=== PATIENT | male | born 1960 | race Caucasian/White ===

== ENCOUNTER 2017-07-25 11:31 | Inpatient (IN) | payer BC ==
[2017-07-25] MEDS ORDERED: IPRATROPIUM-ALBUTEROL 3 ML NEB INHALATION STA ×2 (11:40→14:43)
[2017-07-25] MEDS ORDERED: SODIUM CHLORIDE 0.9% 1,000 ML IV STA (11:40)
[2017-07-25] MEDS ORDERED: MAGNESIUM SULFATE-D5W PMX 1 GM in DEXTROSE/WATER 1 100ML.BAG IVPB STA (11:40)
--- NOTE | 2017-07-25 11:43 | ED ---
SOB HPI - General Chief Complaint: Shortness of Breath Stated Complaint: Difficulty Breathing Time Seen by Provider: 07/25/17 11:31 Source: patient, EMS, RN notes reviewed Mode of arrival: EMS Limitations: no limitations - History of Present Illness Initial Comments: This is a 57-year-old male with a history of COPD who is still a smoker who states he had the onset last evening and shortness of breath which got progressively worse throughout the night. EMS was summoned this morning he was noted have an 84% saturation on pulse ox. The patient was given a DuoNeb and 125 mg of Solu-Medrol he initially somewhat better but still demonstrated respiratory distress. He denies any history of congestive heart failure he's had no chest pain with this he has a cough which is from most part nonproductive. MD Complaint: shortness of breath, cough - Related Data Home Medications Medication Instructions Recorded Confirmed Albuterol Inhaler [Ventolin Hfa 1 puff INHALATION RT-Q4H PRN 07/25/17 07/25/17 Inhaler] Tiotropium 18 Mcg/Puff [Spiriva] 1 cap INHALATION RT-DAILY 07/25/17 07/25/17 Allergies Allergy/AdvReac Type Severity Reaction Status Date / Time No Known Allergies Allergy Verified 07/25/17 11:44 Review of Systems ROS Statement: Those systems with pertinent positive or pertinent negative responses have been documented in the HPI. ROS Other: All systems not noted in ROS Statement are negative. Past Medical History Past Medical History: COPD History of Any Multi-Drug Resistant Organisms: None Reported Past Surgical History: No Surgical Hx Reported Past Anesthesia/Blood Transfusion Reactions: No Reported Reaction Past Psychological History: No Psychological Hx Reported Smoking Status: Current every day smoker Past Alcohol Use History: Daily Past Drug Use History: Marijuana - Past Family History Mother Family Medical History: Cancer Additional Family Medical History / Comment(s): brain cancer General Exam - General Exam Comments Initial Comments: This is a well-developed well-nourished awake alert oriented 3 male Limitations: no limitations General appearance: alert, anxious, in distress Head exam: Present: atraumatic, normocephalic, normal inspection Eye exam: Present: normal appearance, PERRL, EOMI. Absent: scleral icterus, conjunctival injection, periorbital swelling ENT exam: Present: normal exam, mucous membranes moist Neck exam: Present: normal inspection. Absent: tenderness, meningismus, lymphadenopathy Respiratory exam: Present: wheezes, accessory muscle use, decreased breath sounds. Absent: respiratory distress, rales, rhonchi, stridor Cardiovascular Exam: Present: normal rhythm, tachycardia, normal heart sounds. Absent: systolic murmur, diastolic murmur, rubs, gallop, clicks GI/Abdominal exam: Present: soft, normal bowel sounds. Absent: distended, tenderness, guarding, rebound, rigid Extremities exam: Present: normal inspection, full ROM, normal capillary refill , pedal edema (Trace edema with stasis dermatitis noted bilaterally.). Absent: tenderness, joint swelling, calf tenderness Back exam: Present: normal inspection Neurological exam: Present: alert, oriented X3, CN II-XII intact Psychiatric exam: Present: normal affect, normal mood Skin exam: Present: warm, dry, intact. Absent: rash Course Vital Signs 07/25/17 07/25/17 07/25/17 11:35 11:52 12:00 Temperature 98.4 F Pulse Rate 114 H 112 H 114 H Respiratory 26 H Rate Blood Pressure 166/80 O2 Sat by Pulse 91 L Oximetry 07/25/17 07/25/17 07/25/17 12:54 14:45 15:28 Temperature Pulse Rate 110 H 109 H 103 H Respiratory 20 18 Rate Blood Pressure 147/79 154/76 O2 Sat by Pulse 93 L 94 L Oximetry 07/25/17 15:45 Temperature Pulse Rate 123 H Respiratory Rate Blood Pressure O2 Sat by Pulse Oximetry - Reevaluation(s) Reevaluation #1: 07/25/17 12:41 Patient is a smoker we did discuss the benefits of not smoking and the risks thereof. He told conversation lasted 3.1 minutes Reevaluation #2: 07/25/17 16:49 Patient did desaturate down into the 70s with minimal ambulation. Medical Decision Making - Medical Decision Making Patient will be admitted for evaluation for COPD exacerbation. This case with Dr. Yeh. - Lab Data Result diagrams: 07/25/17 11:46 07/25/17 11:46 Lab Results 07/25/17 07/25/17 07/25/17 Range/Units 11:46 11:46 11:46 WBC 10.1 (3.8-10.6) k/uL RBC 4.83 (4.30-5.90) m/uL Hgb 16.0 (13.0-17.5) gm/dL Hct 46.4 (39.0-53.0) % MCV 95.9 (80.0-100.0) fL MCH 33.1 (25.0-35.0) pg MCHC 34.5 (31.0-37.0) g/dL RDW 13.2 (11.5-15.5) % Plt Count 217 (150-450) k/uL Neutrophils % 83 % Lymphocytes % 8 % Monocytes % 5 % Eosinophils % 2 % Basophils % 0 % Neutrophils # 8.4 H (1.3-7.7) k/uL Lymphocytes # 0.9 L (1.0-4.8) k/uL Monocytes # 0.5 (0-1.0) k/uL Eosinophils # 0.2 (0-0.7) k/uL Basophils # 0.0 (0-0.2) k/uL PT (9.0-12.0) sec INR (<1.2) APTT (22.0-30.0) sec Sodium 137 (137-145) mmol/L Potassium 4.0 (3.5-5.1) mmol/L Chloride 101 (98-107) mmol/L Carbon Dioxide 25 (22-30) mmol/L Anion Gap 11 mmol/L BUN 13 (9-20) mg/dL Creatinine 0.80 (0.66-1.25) mg/dL Est GFR (MDRD) Af Amer >60 (>60 ml/min/1.73 sqM) Est GFR (MDRD) Non-Af >60 (>60 ml/min/1.73 sqM) Glucose 118 H (74-99) mg/dL Calcium 9.1 (8.4-10.2) mg/dL Magnesium 1.8 (1.6-2.3) mg/dL Total Bilirubin 0.9 (0.2-1.3) mg/dL AST 33 (17-59) U/L ALT 43 (21-72) U/L Alkaline Phosphatase 100 (38-126) U/L Total Creatine Kinase 277 H (55-170) U/L CK-MB (CK-2) 1.8 (0.0-2.4) ng/mL CK-MB (CK-2) Rel Index 0.6 Troponin I <0.012 (0.000-0.034) ng/mL NT-Pro-B Natriuret Pep pg/mL Total Protein 7.6 (6.3-8.2) g/dL Albumin 4.5 (3.5-5.0) g/dL 07/25/17 07/25/17 Range/Units 11:46 11:46 WBC (3.8-10.6) k/uL RBC (4.30-5.90) m/uL Hgb (13.0-17.5) gm/dL Hct (39.0-53.0) % MCV (80.0-100.0) fL MCH (25.0-35.0) pg MCHC (31.0-37.0) g/dL RDW (11.5-15.5) % Plt Count (150-450) k/uL Neutrophils % % Lymphocytes % % Monocytes % % Eosinophils % % Basophils % % Neutrophils # (1.3-7.7) k/uL Lymphocytes # (1.0-4.8) k/uL Monocytes # (0-1.0) k/uL Eosinophils # (0-0.7) k/uL Basophils # (0-0.2) k/uL PT 10.2 (9.0-12.0) sec INR 1.0 (<1.2) APTT 23.2 (22.0-30.0) sec Sodium (137-145) mmol/L Potassium (3.5-5.1) mmol/L Chloride (98-107) mmol/L Carbon Dioxide (22-30) mmol/L Anion Gap mmol/L BUN (9-20) mg/dL Creatinine (0.66-1.25) mg/dL Est GFR (MDRD) Af Amer (>60 ml/min/1.73 sqM) Est GFR (MDRD) Non-Af (>60 ml/min/1.73 sqM) Glucose (74-99) mg/dL Calcium (8.4-10.2) mg/dL Magnesium (1.6-2.3) mg/dL Total Bilirubin (0.2-1.3) mg/dL AST (17-59) U/L ALT (21-72) U/L Alkaline Phosphatase (38-126) U/L Total Creatine Kinase (55-170) U/L CK-MB (CK-2) (0.0-2.4) ng/mL CK-MB (CK-2) Rel Index Troponin I (0.000-0.034) ng/mL NT-Pro-B Natriuret Pep 97 pg/mL Total Protein (6.3-8.2) g/dL Albumin (3.5-5.0) g/dL - EKG Data -: EKG Interpreted by Me EKG shows normal: sinus rhythm (Sinus tachycardia rate 1:15. Interval 150 to QRS 74 QT since QTC of 334/[address] configuration PACs noted) - Radiology Data Radiology results: report reviewed (I did review the imaging no definite acute findings.), image reviewed Critical Care Time Critical Care Time: Yes Critical Care Time: 37 minutes of critical care time which includes initial presentation with history physical labs x-rays multiple reevaluation patient. Discussion with the admitting physician service with the patient's inhalers documentation of the above. Disposition Clinical Impression: Acute exacerbation of chronic obstructive airways disease, Adult respiratory distress syndrome Disposition: ADMITTED IP TO THIS HOSP Condition: Stable Referrals: Angus Pham MD [Primary Care Provider] - 1-2 days
[2017-07-25 12:06] LABS: ALT 43 U/L (21-72); AST 33 U/L (17-59); Alkaline Phosphatase 100 U/L (38-126); Anion Gap 11 mmol/L; Blood Urea Nitrogen 13 mg/dL (9-20); Calcium 9.1 mg/dL (8.4-10.2); Carbon Dioxide 25 mmol/L (22-30); Chloride 101 mmol/L (98-107); Glucose 118 mg/dL (74-99); Magnesium 1.8 mg/dL (1.6-2.3); Non-African American GFR(MDRD) >60 (>60 ml/min/1.73 sqM); Sodium 137 mmol/L (137-145); Total Bilirubin 0.9 mg/dL (0.2-1.3); Total Protein 7.6 g/dL (6.3-8.2)
[2017-07-25 12:09] LABS: Basophils % (A) 0 %; CH 32.9; CHCM 34.4; Eosinophils # (A) 0.2 k/uL (0-0.7); Eosinophils % (A) 2 %; HCT 46.4 % (39.0-53.0); HDW 2.73; Luc # (Auto) 0.14; Luc % (Auto) 1; Lymphocytes # (A) 0.9 k/uL (1.0-4.8); Lymphocytes % (A) 8 %; MCH 33.1 pg (25.0-35.0); MCHC 34.5 g/dL (31.0-37.0); MCV 95.9 fL (80.0-100.0); Monocytes # (A) 0.5 k/uL (0-1.0); Monocytes % (A) 5 %; Neutrophils # (A) 8.4 k/uL (1.3-7.7); Neutrophils % (A) 83 %; RBC 4.83 m/uL (4.30-5.90); RDW 13.2 % (11.5-15.5); WBC 10.1 k/uL (3.8-10.6); WBC (Perox) 9.86
[2017-07-25 12:15] LABS: Partial Thromboplastin Time 23.2 sec (22.0-30.0); Prothrombin Time 10.2 sec (9.0-12.0)
[2017-07-25 12:31] LABS: Creatine Kinase 277 U/L (55-170)
--- NOTE | 2017-07-25 12:35 | XR ---
EXAMINATION TYPE: XR chest 2V DATE OF EXAM: 07/25/2017 COMPARISON: 12/13/1715 HISTORY: Shortness of breath TECHNIQUE: Frontal and lateral views of the chest are obtained. FINDINGS: Scattered senescent parenchymal changes noted. Hyperinflation compatible with COPD. No evidence for infiltrate. No evidence for atelectasis. Scattered pulmonary nodules are stable. Heart size is stable. Mediastinal structures are stable and grossly unremarkable. No evidence for hilar prominence. Degenerative changes dorsal spine. IMPRESSION: 1. No evidence for acute pulmonary disease.
[2017-07-25 12:43] LABS: Creatine Kinase MB 1.8 ng/mL (0.0-2.4); Troponin I <0.012 ng/mL (0.000-0.034)
[2017-07-25] MEDS: IPRATROPIUM-ALBUTEROL 3 ML NEB INHALATION SCH (19:08)
[2017-07-25] MEDS ORDERED: ACETAMINOPHEN TAB 325 MG TAB PO PRN (20:12)
[2017-07-25] MEDS ORDERED: hydrALAZINE HCL 20 MG/ML 1 ML VIAL IVP PRN (20:37)
[2017-07-25] MEDS ORDERED: ALPRAZolam 0.25 MG TAB PO PRN (20:37)
[2017-07-25] MEDS ORDERED: TEMAZEPAM 15 MG CAP PO PRN (20:37)
[2017-07-25] MEDS ORDERED: HYDROcodone/APAP 5-325MG 1 EACH TAB PO PRN (20:37)
[2017-07-25] MEDS: HEPARIN SODIUM,PORCINE 5,000 UNIT/ML 1 ML VIAL SQ SCH (20:50)
[2017-07-25] MEDS: SODIUM CHLORIDE 0.9% 1,000 ML IV SCH (20:51)
[2017-07-25] MEDS ORDERED: LEVOFLOXACIN 500MG-D5W PMX 500 MG in DEXTROSE/WATER 1 100ML.BAG IVPB SCH (21:00)
[2017-07-25] MEDS: methylPREDNISolone SOD SUCCI 125 MG/2 ML VIAL IV SCH ×2 (21:49→23:57)
[2017-07-25 22:58] VITALS: BMI 47.0
[2017-07-26] MEDS: IPRATROPIUM-ALBUTEROL 3 ML NEB INHALATION SCH ×7 (00:27→23:41)
--- NOTE | 2017-07-26 05:53 | HP ---
HISTORY AND PHYSICAL DATE OF SERVICE: 07/25/2017. CHIEF COMPLAINT: Shortness of breath. HISTORY: This 57-year-old gentleman with a past medical history of multiple medical problems including chronic obstructive pulmonary disease, history of nicotine dependence being for followed by Dr. Ministerio Pham in the outpatient setting, was complaining of shortness of breath for the last couple of days. The patient had baseline shortness of breath. The patient also had cough and sputum also. The pulse was found to be 84% and the patient was given DuoNeb and steroids the patient admitted for further evaluation and treatment. At the time of admission, the patient was found to be extremely short of breath. Chest x-ray showed no evidence of pneumonia. The white count was noted. Otherwise there is no history of fever, rigors. No history of headache, loss of consciousness, seizures. PAST MEDICAL HISTORY: History of COPD, history of nicotine dependence. CURRENT MEDICATIONS: Prior to admission include: 1. Spiriva 1 puff daily. 2. Albuterol inhaler 1 puff b.i.d. ALLERGIES: Allergies are none. FAMILY HISTORY: History of breast cancer. Brain cancer. SOCIAL HISTORY: History of smoking, THC and history alcohol. REVIEW OF SYSTEMS: ENT: No diminished hearing or vision. CARDIOVASCULAR: No angina. RESPIRATORY: As mentioned earlier. GI: No nausea. : No dysuria. NERVOUS SYSTEM: No numbness or weakness. ALLERGY/IMMUNOLOGY: No asthma or hayfever. MUSCULOSKELETAL: As mentioned earlier. HEMATOLOGY: No history of anemia. ENDOCRINE: No history of diabetes or hypothyroidism. CONSTITUTIONAL: As mentioned earlier. DERMATOLOGY: Negative. RHEUMATOLOGY: Negative. PSYCHIATRY: As mentioned earlier. PHYSICAL EXAMINATION: Alert, oriented x3. Pulse is 114, blood pressure is 160/80, respirations 20, temperature 98.4, pulse ox 90% on 3 L. HEENT: Conjunctivae normal. Oral mucosa moist. NECK: No jugular venous distention. No carotid bruit. No lymph nodes enlargement. CARDIOVASCULAR: S1, S2. No S3, no S4. RESPIRATORY: Breath sounds diminished pressure in the bases. Bilateral scattered rhonchi. Breathing efforts are markedly increased. A few crackles also heard. Expiratory prolonged and wheezing also had. ABDOMEN: Soft, obese, nontender. No mass palpable. LEGS: Minimal edema. Pulses felt normally. NERVOUS SYSTEM: Higher functions as mentioned earlier. Moves all 4 limbs. No focal motor deficits. LYMPHATICS: No lymphadenopathy in the neck, axillae or groin. SKIN: No rash, ulcer or bleeding. LABS: At this time show CBC within normal limits. INR is 1, glucose 180. ASSESSMENT: 1. Chronic obstructive pulmonary disease acute exacerbation with acute purulent tracheobronchitis. 2. History of nicotine dependence. 3. Bilateral leg edema. 4. Obesity, body mass index of 44.3. RECOMMENDATIONS AND DISCUSSION: This 57-year-old gentleman who presented with multiple complex medical issues, will monitor the patient closely. Continue the current management and symptomatic treatment. Otherwise I would recommend intensive bronchodilator treatment, IV steroids. Empiric antibiotics. Pulmonary consultation. DVT prophylaxis. H2 blockers. Prognosis guarded because of multiple complex medical issues. Further recommendations to follow. Patient might be a candidate for nebulizer treatment at home. Will also check for oxygen requirements also. Prognosis guarded. Discussed with patient who understands. Further recommendations to follow. MMODL / IJN: [id number] /
[2017-07-26 06:24] LABS: Appearance,Urine Clear (Clear); Bilirubin,Urine Negative (Negative); Glucose,Urine (UA) Negative (Negative); Ketones,Urine 1+ (Negative); Leukocyte Esterase,Urine Negative (Negative); Nitrite,Urine Negative (Negative); Protein,Urine Trace (Negative); Specific Gravity,Urine 1.014 (1.001-1.035); UA Billing (MACRO vs. MICRO) CHEM; Urobilinogen,Urine <2.0 mg/dL (<2.0)
[2017-07-26 06:27] LABS: Basophils % (A) 0 %; CH 32.4; CHCM 33.2; Eosinophils % (A) 0 %; HCT 45.1 % (39.0-53.0); HDW 2.67; Luc # (Auto) 0.03; Luc % (Auto) 0; Lymphocytes # (A) 0.6 k/uL (1.0-4.8); Lymphocytes % (A) 7 %; MCH 32.7 pg (25.0-35.0); MCHC 33.3 g/dL (31.0-37.0); MCV 98.2 fL (80.0-100.0); Monocytes # (A) 0.2 k/uL (0-1.0); Monocytes % (A) 2 %; Neutrophils # (A) 7.4 k/uL (1.3-7.7); Neutrophils % (A) 90 %; RBC 4.59 m/uL (4.30-5.90); RDW 13.3 % (11.5-15.5); WBC 8.3 k/uL (3.8-10.6); WBC (Perox) 8.52
[2017-07-26 06:32] LABS: Anion Gap 9 mmol/L; Blood Urea Nitrogen 12 mg/dL (9-20); Calcium 9.3 mg/dL (8.4-10.2); Carbon Dioxide 28 mmol/L (22-30); Chloride 101 mmol/L (98-107); Glucose 154 mg/dL (74-99); Non-African American GFR(MDRD) >60 (>60 ml/min/1.73 sqM); Potassium 5.3 mmol/L (3.5-5.1); Sodium 138 mmol/L (137-145)
[2017-07-26] MEDS: methylPREDNISolone SOD SUCCI 125 MG/2 ML VIAL IV SCH ×4 (06:48→23:36)
[2017-07-26] MEDS: PANTOPRAZOLE 40 MG TABLET PO SCH (06:49)
[2017-07-26] MEDS: BUDESONIDE 1 MG/2 ML NEBU INHALATION SCH ×2 (08:09→19:29)
[2017-07-26] MEDS: FORMOTEROL FUMARATE 20 MCG/2 ML NEBU INHALATION SCH ×2 (08:09→19:29)
[2017-07-26] MEDS: HEPARIN SODIUM,PORCINE 5,000 UNIT/ML 1 ML VIAL SQ SCH ×2 (08:32→21:53)
--- NOTE | 2017-07-26 10:28 | P.CNPUL ---
History of Present Illness Consult date: 07/26/17 Requesting physician: Bianka Yeh Reason for consult: dyspnea Chief complaint: Shortness of breath, cough, congestion History of present illness: This is a very pleasant 57-year-old gentleman who follows with Dr. Angus estrella tomorrow as his primary care physician. He has a history of chronic obstructive pulmonary disease and disease secondary to chronic and ongoing tobacco dependence. He has smoked for approximately 40 years at 1 pack per day. He utilizes marijuana. He is maintained on Ventolin and Spiriva in the outpatient setting. He has not been seen by a first aid instructor in the past. He also has a history of daily alcohol use and obesity. 2 days ago the patient was cleaning out his basement which he says was quite damp and charli. He had developed increasing shortness of breath cough and congestion. Yesterday things were quite worse after just ambulating up to the bathroom and had difficulty catching his breath. He was brought in via EMS to our emergency room. He did have saturations in the 70s with minimal exertion. He is requiring oxygen at 3 L/m per nasal cannula to maintain O2 saturations in the low 90s. His chest x-ray did not reveal any evidence of acute pulmonary process. No leukocytosis. He's been afebrile. Hemodynamically stable. Review of Systems Eyes: denies blurred vision, denies bulging eye, denies decreased vision Ears: deny: decreased hearing Ears, nose, mouth and throat: Denies headache, Denies sore throat Cardiovascular: Denies chest pain, Denies shortness of breath Respiratory: Reports congestion, Reports cough, Reports dyspnea, Reports wheezing Gastrointestinal: Denies abdominal pain, Denies diarrhea, Denies nausea, Denies vomiting Genitourinary: Reports as per HPI Musculoskeletal: Denies myalgias Musculoskeletal: absent: knee pain, knee stiffness, knee swelling Integumentary: Denies pruritus, Denies rash Neurological: Denies numbness, Denies weakness Psychiatric: Denies anxiety, Denies depression Endocrine: Denies fatigue, Denies weight change Hematologic/Lymphatic: Reports as per HPI Allergic/Immunologic: Reports as per HPI, Denies allergic rhinitis, Denies anaphylaxis, Denies angioedema, Denies gluten intolerance, Denies persistent infections, Denies seasonal allergies, Denies urticaria, Denies wheezing Past Medical History Past Medical History: COPD History of Any Multi-Drug Resistant Organisms: None Reported Past Surgical History: No Surgical Hx Reported Past Anesthesia/Blood Transfusion Reactions: No Reported Reaction Past Psychological History: No Psychological Hx Reported Smoking Status: Former smoker Past Alcohol Use History: Daily Past Drug Use History: Marijuana Additional Drug Use History / Comment(s): recreational use, on weekends - Past Family History Mother Family Medical History: Cancer Additional Family Medical History / Comment(s): brain cancer Medications and Allergies Home Medications Medication Instructions Recorded Confirmed Type Albuterol Inhaler [Ventolin Hfa 1 puff INHALATION RT-Q4H PRN 07/25/17 07/25/17 History Inhaler] Tiotropium 18 Mcg/Puff [Spiriva] 1 cap INHALATION RT-DAILY 07/25/17 07/25/17 History Allergies Allergy/AdvReac Type Severity Reaction Status Date / Time No Known Allergies Allergy Verified 07/25/17 11:44 Physical Exam Vitals: Vital Signs Temp Pulse Pulse Resp BP BP Pulse Ox 07/26/17 08:37 100 07/26/17 08:25 96 07/26/17 08:09 96 07/26/17 08:00 97.3 F L 89 18 151/91 93 L 07/26/17 04:02 97 07/26/17 04:00 97.6 F 90 18 149/91 93 L 07/26/17 03:49 94 07/26/17 00:39 112 H 07/26/17 00:28 97 07/26/17 00:00 97.3 F L 95 18 146/83 91 L 07/25/17 22:42 97 F L 95 18 163/100 95 07/25/17 22:10 111 H 18 07/25/17 19:20 104 H 07/25/17 19:10 112 H 22 159/88 94 L 07/25/17 19:08 100 07/25/17 18:07 99 F 98 16 159/88 96 07/25/17 15:45 123 H 07/25/17 15:28 103 H 07/25/17 14:45 109 H 18 154/76 94 L 07/25/17 12:54 110 H 20 147/79 93 L 07/25/17 12:00 114 H 07/25/17 11:52 112 H 07/25/17 11:35 98.4 F 114 H 26 H 166/80 91 L Intake and Output 07/25/17 07/26/17 07/26/17 22:59 06:59 14:59 Intake Total 900 Balance 900 Intake: IV 800 Sodium Chloride 0.9% 1, 800 000 ml @ 100 mls/hr IV . Q10H [facility] Rx#:[id number] Intake, IV Titration 100 Amount Levofloxacin 500Mg-D5w 100 Pmx 500 mg In Dextrose/ Water 1 100ml.bag @ 100 mls/hr IVPB Q24H [facility] Rx#: [id number] Other: Voiding Method Toilet Toilet # Voids 1 Weight 140.16 kg 139.3 kg GENERAL EXAM: Obese. Alert, comfortable in no apparent distress. HEAD: Normocephalic. EYES: Normal reaction of pupils, equal size. NOSE: Clear with pink turbinates. THROAT: No erythema or exudates. NECK: No masses, no JVD. CHEST: No chest wall deformity. LUNGS: Equal air entry with bilateral wheezing. Diminished. CVS: S1 and S2 normal with no audible murmurs, regular rhythm. ABDOMEN: No hepatosplenomegaly, normal bowel sounds, no guarding or rigidity. SPINE: No scoliosis or deformity SKIN: No rashes CENTRAL NERVOUS SYSTEM: No focal deficits, tone is normal in all 4 extremities. Extremities: There is no significant peripheral edema. No clubbing, no cyanosis. Peripheral pulses are intact. Results - Laboratory Findings CBC and BMP: 07/26/17 05:21 07/26/17 05:21 PT/INR, D-dimer PT 10.2 sec (9.0-12.0) 07/25/17 11:46 INR 1.0 (<1.2) 07/25/17 11:46 Abnormal lab findings: Abnormal Labs 07/25/17 07/25/17 07/25/17 11:46 11:46 11:46 Neutrophils # 8.4 H Lymphocytes # 0.9 L Potassium Glucose 118 H Total Creatine Kinase 277 H Urine Protein Urine Ketones 07/26/17 07/26/17 07/26/17 05:21 05:21 06:00 Neutrophils # Lymphocytes # 0.6 L Potassium 5.3 H Glucose 154 H Total Creatine Kinase Urine Protein Trace H Urine Ketones 1+ H - Diagnostic Findings Chest x-ray: image reviewed Assessment and Plan Plan: Impression: #1 Acute exacerbation of chronic obstructive pulmonary disease. #2 Acute hypoxic respiratory failure secondary to above. #3 Chronic and ongoing tobacco dependence. #4 Marijuana use. #5 Obesity. #6 Daily alcohol use. Plan: The patient was seen and evaluated by Dr. Mariscal. His chest x-ray and labs were reviewed. We'll go ahead and continue with his COPD exacerbation treatment including DuoNeb treatments every 4 hours, Pulmicort and Perforomist inhalations twice a day and he is on empiric antibiotics in the form of Levaquin. He is on heparin for DVT prophylaxis. Protonix for GI prophylaxis. He is educated regarding the importance of complete smoking cessation including both cigarettes and marijuana. He will be observed for alcohol withdrawal. He would benefit from a follow-up in our office to include full pulmonary function testing to evaluate the severity of his COPD and make recommendations for additional maintenance medications. In the interim, we will increase his activity as tolerated. We'll continue to follow and make further recommendations based on his clinical status. Time with Patient: Greater than 30
--- NOTE | 2017-07-26 16:57 | PN ---
PROGRESS NOTE DATE OF SERVICE: 07/26/2017 This 57-year-old gentleman, admitted with COPD, acute exacerbation, also had acute purulent tracheobronchitis. The patient also has a history of nicotine dependence. Patient is still significantly short of breath. He is on extensive bronchodilators. Chest x-ray showed no evidence of pneumonia. Patient's potassium is 5.3. Past medical history reviewed. REVIEW OF SYSTEMS: CARDIOVASCULAR SYSTEM: No angina, palpitations. RESPIRATORY SYSTEM: As mentioned earlier. GI: No nausea, vomiting. : No dysuria or retention. CURRENT MEDICATIONS: Current medications are reviewed and include: 1. Tylenol 650 q.6 p.r.n. 2. [place] 5 mg q.6 p.r.n. 3. DuoNeb q.i.d. and p.r.n. 4. Pulmicort 1 mg b.i.d. 5. Perforomist 20 b.i.d. 6. Heparin 5000 units subcutaneously b.i.d. 7. Apresoline 10 mg q.4 hours p.r.n. 8. Solu-Medrol 40 IV q.6. 9. Restoril. PHYSICAL EXAMINATION: Patient is alert, oriented x3. Pulse is 105, blood pressure 132/93, respiration 18, temperature 97.3, pulse ox 94% on 3 L. HEENT: Conjunctivae normal. Oral mucosa moist. NECK: No jugular venous distention. No carotid bruit. No lymph node enlargement. CARDIOVASCULAR: S1, S2 muffled. No S3. No S4. RESPIRATORY SYSTEM: Breath sounds diminished at the bases. Bilateral scattered rhonchi and crackles. Expiratory wheezing also present. Breathing efforts are markedly increased. Chest is emphysematous. ABDOMEN: Soft, obese, nontender. No mass palpable. LEGS: No edema. No swelling. NERVOUS SYSTEM: No focal deficit. LABS: WBC 8.3, hemoglobin 15. Accu-Cheks 154. ASSESSMENT: 1. Chronic obstructive pulmonary disease, acute exacerbation, with acute purulent tracheobronchitis with severe shortness of breath. 2. History of nicotine dependence. 3. Increased random blood sugar. 4. Bilateral leg edema. 5. Obesity with body mass index of 44.3. RECOMMENDATIONS AND DISCUSSION: I recommend to continue current medication, continue symptomatic treatment. Continue the bronchodilators. Empiric antibiotics. See orders for further details. DVT prophylaxis. Incentive spirometry. Otherwise, closely follow with Pulmonary. Guarded prognosis. Further recommendations to follow. MMODL / IJN: [id number] /
[2017-07-26] MEDS: SODIUM CHLORIDE 0.9% 1,000 ML IV SCH (18:18)
[2017-07-26 19:52] LABS: Glucose,Whole Blood 183 mg/dL (75-99)
[2017-07-26] MEDS ORDERED: LEVOFLOXACIN 500 MG TAB PO SCH (21:00)
[2017-07-26] MEDS: INSULIN LISPRO (humaLOG) 300 UNIT/3 ML VIAL SQ SCH (21:53)
[2017-07-26 22:07] LABS: Hemoglobin A1C 4.9 % (4.2-6.1)
[2017-07-26 22:27] VITALS: RESP 16
[2017-07-27] MEDS: IPRATROPIUM-ALBUTEROL 3 ML NEB INHALATION SCH ×3 (04:04→11:10)
[2017-07-27] MEDS: methylPREDNISolone SOD SUCCI 125 MG/2 ML VIAL IV SCH (06:30)
[2017-07-27] MEDS: BUDESONIDE 1 MG/2 ML NEBU INHALATION SCH (07:05)
[2017-07-27] MEDS: FORMOTEROL FUMARATE 20 MCG/2 ML NEBU INHALATION SCH (07:05)
[2017-07-27 07:23] LABS: Basophils % (A) 0 %; CH 32.7; CHCM 33.2; Eosinophils % (A) 0 %; HCT 44.6 % (39.0-53.0); HDW 2.62; HGB 14.7 gm/dL (13.0-17.5); Luc # (Auto) 0.13; Luc % (Auto) 1; Lymphocytes # (A) 0.7 k/uL (1.0-4.8); Lymphocytes % (A) 5 %; MCH 32.6 pg (25.0-35.0); MCHC 32.9 g/dL (31.0-37.0); MCV 98.9 fL (80.0-100.0); Monocytes # (A) 0.6 k/uL (0-1.0); Monocytes % (A) 5 %; Neutrophils % (A) 89 %; RBC 4.51 m/uL (4.30-5.90); RDW 13.3 % (11.5-15.5); WBC 12.3 k/uL (3.8-10.6); WBC (Perox) 13.06
[2017-07-27 07:23] LABS: Glucose,Whole Blood 150 mg/dL (75-99)
[2017-07-27 07:30] VITALS: BP 151/79; TEMP 97.1
[2017-07-27 07:30] LABS: Anion Gap 10 mmol/L; Blood Urea Nitrogen 15 mg/dL (9-20); Calcium 9.3 mg/dL (8.4-10.2); Carbon Dioxide 26 mmol/L (22-30); Chloride 103 mmol/L (98-107); Glucose 150 mg/dL (74-99); Non-African American GFR(MDRD) >60 (>60 ml/min/1.73 sqM); Potassium 4.6 mmol/L (3.5-5.1); Sodium 139 mmol/L (137-145)
[2017-07-27] MEDS: HEPARIN SODIUM,PORCINE 5,000 UNIT/ML 1 ML VIAL SQ SCH (08:49)
[2017-07-27] MEDS: INSULIN LISPRO (humaLOG) 300 UNIT/3 ML VIAL SQ SCH ×2 (08:49→13:19)
[2017-07-27] MEDS: PANTOPRAZOLE 40 MG TABLET PO SCH (08:49)
[2017-07-27 11:29] VITALS: PULSE 110
[2017-07-27 11:43] LABS: Glucose,Whole Blood 170 mg/dL (75-99)
--- NOTE | 2017-07-27 13:19 | P.PN ---
Subjective Progress Note Date: 07/27/17 Principal diagnosis: Shortness of breath, cough and congestion This is a very pleasant 57-year-old gentleman who follows with Dr. Angus titusble tomorrow as his primary care physician. He has a history of chronic obstructive pulmonary disease and disease secondary to chronic and ongoing tobacco dependence. He has smoked for approximately 40 years at 1 pack per day. He utilizes marijuana. He is maintained on Ventolin and Spiriva in the outpatient setting. He has not been seen by a music sound light technician in the past. He also has a history of daily alcohol use and obesity. 2 days ago the patient was cleaning out his basement which he says was quite damp and charli. He had developed increasing shortness of breath cough and congestion. Yesterday things were quite worse after just ambulating up to the bathroom and had difficulty catching his breath. He was brought in via EMS to our emergency room. He did have saturations in the 70s with minimal exertion. He is requiring oxygen at 3 L/m per nasal cannula to maintain O2 saturations in the low 90s. His chest x-ray did not reveal any evidence of acute pulmonary process. No leukocytosis. He's been afebrile. Hemodynamically stable. On 07/27/2017 patient is reevaluated. He is sitting up in bed, states his breathing is much improved today. He has been active, ambulating about the room tolerating activity well. Denies chest congestion, however does continue with productive cough with small amount of white sputum. Lung sounds diffuse wheezes over posterior bases. No rhonchi, no rales. On room air with O2 saturation around 92%, patient has been afebrile. He will continue on prednisone taper and oral Levaquin, DuoNeb, Pulmicort and formoterol nebulized treatments. We will set up a follow-up appointment with Dr. Mariscal in the office in 2 weeks. Objective - Vital Signs Vital signs: Vital Signs Temp 97.1 F L 07/27/17 07:00 Pulse 110 H 07/27/17 11:28 Resp 16 07/27/17 07:00 BP 151/79 07/27/17 07:00 Pulse Ox 92 L 07/27/17 10:30 Intake & Output 07/26/17 07/27/17 07/27/17 18:59 06:59 18:59 Intake Total 300 1180 Output Total 300 300 Balance 0 880 Intake: IV 300 Sodium Chloride 0.9% 1, 300 000 ml @ 100 mls/hr IV . Q10H STA Rx#:[id number] Oral 1180 Output: Urine 300 300 Other: Voiding Method Toilet Toilet # Voids 2 2 - Exam GENERAL EXAM: Obese. Alert, comfortable in no apparent distress. HEAD: Normocephalic. EYES: Normal reaction of pupils, equal size. NOSE: Clear with pink turbinates. THROAT: No erythema or exudates. NECK: No masses, no JVD. CHEST: No chest wall deformity. LUNGS: Equal air entry with bilateral wheezing. Diminished. CVS: S1 and S2 normal with no audible murmurs, regular rhythm. ABDOMEN: No hepatosplenomegaly, normal bowel sounds, no guarding or rigidity. SPINE: No scoliosis or deformity SKIN: No rashes CENTRAL NERVOUS SYSTEM: No focal deficits, tone is normal in all 4 extremities. Extremities: There is no significant peripheral edema. No clubbing, no cyanosis. Peripheral pulses are intact. - Labs CBC & Chem 7: 07/27/17 07:06 07/27/17 07:06 Labs: Abnormal Lab Results - Last 24 Hours (Table) 07/26/17 07/27/17 07/27/17 Range/Units 19:51 07:06 07:06 WBC 12.3 H (3.8-10.6) k/uL Neutrophils # 11.0 H (1.3-7.7) k/uL Lymphocytes # 0.7 L (1.0-4.8) k/uL Glucose 150 H (74-99) mg/dL POC Glucose (mg/dL) 183 H (75-99) mg/dL 07/27/17 07/27/17 Range/Units 07:12 11:33 WBC (3.8-10.6) k/uL Neutrophils # (1.3-7.7) k/uL Lymphocytes # (1.0-4.8) k/uL Glucose (74-99) mg/dL POC Glucose (mg/dL) 150 H 170 H (75-99) mg/dL Assessment and Plan Plan: Assessment and Plan Plan: Impression: #1 Acute exacerbation of chronic obstructive pulmonary disease. #2 Acute hypoxic respiratory failure secondary to above. #3 Chronic and ongoing tobacco dependence. #4 Marijuana use. #5 Obesity. #6 Daily alcohol use. Plan: The patient was seen and evaluated by Dr. Mariscal. His chest x-ray and labs were reviewed. We'll go ahead and continue with his COPD exacerbation treatment including DuoNeb treatments every 4 hours, Pulmicort and Perforomist inhalations twice a day and he is on empiric antibiotics in the form of Levaquin. He is on heparin for DVT prophylaxis. Protonix for GI prophylaxis. He is educated regarding the importance of complete smoking cessation including both cigarettes and marijuana. He will be observed for alcohol withdrawal. He would benefit from a follow-up in our office to include full pulmonary function testing to evaluate the severity of his COPD and make recommendations for additional maintenance medications. He can be discharged home from pulmonary standpoint, follow-up appointment has been made with Dr. Mariscal. I performed a history & physical examination of the patient and discussed their management with my nurse practitioner, Chayo López. I reviewed the nurse practitioner's note and agree with the documented findings and plan of care.
[2017-07-27] MEDS ORDERED: methylPREDNISolone SOD SUCCI 40 MG/ML 1 ML VIAL IV SCH (16:00)
--- NOTE | 2017-07-27 17:49 | P.DS ---
Providers Date of admission: 07/25/17 16:51 Attending physician: Bianka Yeh Consults: 07/25/17 20:37 Consult Physician Routine Consulting Provider: Amarjit Mariscal Reason/Comments: copd Do you want consulting provider notified?: Yes Primary care physician: Angus Pham Hospital Course: This 57-year-old gentleman was admitted with the severe shortness of breath suggestive of COPD acute exacerbation as well as acute purulent tracheobronchitis. Patient also had a history of nicotine dependence. Patient was treated with extensive bronchodilators, steroids, as well as antibiotics. Dr. Mariscal saw the patient during the hospitalization. The patient improved significantly during the hospitalization. Patient is keen on going home at this time. Patient be discharged in a stable condition with guarded prognosis after clearance from Dr. aHrp. Total time taken is 35 minutes. On exam vitals stable. Cardio S1 and S2 normal. Respirator system bilateral scattered rhonchi and crackles. Abdomen soft obese nontender. Nervous system no focal deficit. Final diagnosis 1. COPD acute exacerbation with acute purulent tracheobronchitis with a severe shortness of breath. 2. History and nicotine dependence. 3. Increased random blood sugar. 4. Bilateral leg edema. 5. Obesity body mass index of 44.3 Patient Condition at Discharge: Stable Plan - Discharge Summary New Discharge Prescriptions: New Budesonide/Formoterol Fumarate [Symbicort 160-4.5 Mcg Inhaler] 1 puff IH BID #1 hfa.aer.ad Ipratropium-Albuterol Nebulize [Duoneb 0.5 mg-3 mg/3 ml Soln] 3 ml INHALATION RT-QID #120 neb Levofloxacin [Levaquin] 500 mg PO HS #5 tab predniSONE 10 mg PO DIRECTED #30 tab Continue Albuterol Inhaler [Ventolin Hfa Inhaler] 1 puff INHALATION RT-Q4H PRN PRN Reason: Dyspnea Discontinued Tiotropium 18 Mcg/Puff [Spiriva] 1 cap INHALATION RT-DAILY Discharge Medication List Albuterol Inhaler [Ventolin Hfa Inhaler] 1 puff INHALATION RT-Q4H PRN 07/25/17 [ History] Budesonide/Formoterol Fumarate [Symbicort 160-4.5 Mcg Inhaler] 1 puff IH BID #1 hfa.aer.ad 07/27/17 [Rx] Ipratropium-Albuterol Nebulize [Duoneb 0.5 mg-3 mg/3 ml Soln] 3 ml INHALATION RT -QID #120 neb 07/27/17 [Rx] Levofloxacin [Levaquin] 500 mg PO HS #5 tab 07/27/17 [Rx] predniSONE 10 mg PO DIRECTED #30 tab 07/27/17 [Rx] Follow up Appointment(s)/Referral(s): Angus Pham MD [Primary Care Provider] - 08/01/17 11:00 am Amarjit Mariscal DO [Doctor of Osteopathic Medicine] - 08/09/17 9:00 am Ambulatory/Diagnostic Orders: Complete Blood Count w/diff [LAB.AMB] Location: Determined By Patient Patient Instructions/Handouts: Prednisone (By mouth), Levofloxacin (By mouth), Ipratropium/Albuterol (By breathing), Budesonide/Formoterol (By breathing), COPD (Chronic Obstructive Pulmonary Disease) (DC) Activity/Diet/Wound Care/Special Instructions: diet cardiac act limited till f/u check ra pulse ox after ambulation Discharge Disposition: HOME SELF-CARE
== END 2017-07-27 15:35 | disposition home or self-care (01) | DRG 190 ==
LOC: EC 11:31 → 6SEL 16:51 → 5MS5E 07-26 16:09
PROVIDERS: ADMIT Hospitalist; ATTEND Hospitalist
DX: J44.0 Chronic obstructive pulmonary disease with (acute) lower respiratory infection (principal); J96.01 Acute respiratory failure with hypoxia; Z68.41 Body mass index [BMI] 40.0-44.9, adult; E66.9 Obesity, unspecified; J20.9 Acute bronchitis, unspecified; F12.90 Cannabis use, unspecified, uncomplicated; F10.11 Alcohol abuse, in remission; J44.1 Chronic obstructive pulmonary disease with (acute) exacerbation; Z79.899 Other long term (current) drug therapy; Z87.891 Personal history of nicotine dependence
CPT/HCPCS: 36415; 71020; 80048; 80053; 81003; 82550; 82553; 83036; 83735; 83880; 84484; 85025; 85610; 85730; 93005; 94640; 94760; 96365; 96366; 99291

== ENCOUNTER 2017-08-27 09:19 | Inpatient (IN) | payer BC ==
[2017-08-27] MEDS ORDERED: HYDROmorphone 1 MG/ML 1 ML SYRINGE IVP STA (09:38)
[2017-08-27] MEDS ORDERED: KETOROLAC 30 MG/ML 1 ML VIAL IVP STA (09:38)
[2017-08-27] MEDS ORDERED: SODIUM CHLORIDE 0.9% 1,000 ML IV ONE (09:38)
--- NOTE | 2017-08-27 10:21 | ED ---
Extremity Problem HPI - General Chief complaint: Extremity Problem,Nontraumatic Stated complaint: left arm pain Time Seen by Provider: 08/27/17 09:26 Source: patient, RN notes reviewed, old records reviewed Mode of arrival: ambulatory Limitations: no limitations - History of Present Illness Initial comments: This is a 57-year-old male presents emergency Department chief complaint of left arm pain. Patient reports that the pain started approximately 4 days ago. He states that it started to swell immensely. He went to his primary care doctor yesterday and they were told that he has gout. He was started on colchicine and prednisone. He reports that he is taking that but the pain is more severe. Patient states that he's noticed some significant swelling in his arm. Denies any trauma. He states that he's never had a history of gout before. Patient has a medical history including hypertension, acid reflux, obesity, alcohol abuse and tobacco use. Patient was admitted to the hospital approximately one month ago for COPD exacerbation. He reports that he's been doing well with his breathing treatments. Denies any chest pain or shortness of breath at this time. Patient states that his hand feels extremely heavy and painful. He reports that he is unable to go close his hand and grasp it due to the swelling and pain. - Related Data Home Medications Medication Instructions Recorded Confirmed Albuterol Inhaler [Ventolin Hfa 1 puff INHALATION RT-Q4H PRN 07/25/17 08/27/17 Inhaler] Colchicine [Colcrys] 0.6 mg PO DAILY 08/27/17 08/27/17 Ipratropium-Albuterol Nebulize 3 ml INHALATION RT-QID PRN 08/27/17 08/27/17 [Duoneb 0.5 mg-3 mg/3 ml Soln] predniSONE 50 mg PO DAILY 08/27/17 08/27/17 Allergies Allergy/AdvReac Type Severity Reaction Status Date / Time budesonide [From Symbicort] AdvReac Fever, Verified 08/27/17 11:10 Shakes, Nausea, Vomitting formoterol [From Symbicort] AdvReac Fever, Verified 08/27/17 11:10 Shakes, Nausea, Vomitting Review of Systems ROS Statement: Those systems with pertinent positive or pertinent negative responses have been documented in the HPI. ROS Other: All systems not noted in ROS Statement are negative. Past Medical History Past Medical History: COPD History of Any Multi-Drug Resistant Organisms: None Reported Past Surgical History: No Surgical Hx Reported Past Anesthesia/Blood Transfusion Reactions: No Reported Reaction Past Psychological History: No Psychological Hx Reported Smoking Status: Former smoker Past Alcohol Use History: Daily Past Drug Use History: Marijuana - Past Family History Mother Family Medical History: Cancer Additional Family Medical History / Comment(s): brain cancer General Exam Limitations: no limitations General appearance: alert, in no apparent distress Head exam: Present: atraumatic, normocephalic, normal inspection Eye exam: Present: normal appearance, PERRL, EOMI. Absent: scleral icterus, conjunctival injection, periorbital swelling ENT exam: Present: normal exam, mucous membranes moist Neck exam: Present: normal inspection. Absent: tenderness, meningismus, lymphadenopathy Respiratory exam: Present: normal lung sounds bilaterally. Absent: respiratory distress, wheezes, rales, rhonchi, stridor Cardiovascular Exam: Present: regular rate, normal rhythm, normal heart sounds. Absent: systolic murmur, diastolic murmur, rubs, gallop, clicks GI/Abdominal exam: Present: soft, normal bowel sounds. Absent: distended, tenderness, guarding, rebound, rigid Extremities exam: Present: normal inspection, full ROM, normal capillary refill. Absent: tenderness, pedal edema, joint swelling, calf tenderness Left Elbow exam: Present: normal inspection, full ROM. Absent: tenderness, swelling , abrasion Forearm Wrist exam: Present: tenderness, swelling, other. Absent: normal inspection, full ROM (Patient has swelling and limited range of motion of the left wrist and forearm. He is unable to pronate and supinate his arm without significant pain.), abrasion, laceration, ecchymosis, deformity, crepitus, dislocation, erythema Hand Wrist exam: Present: tenderness, swelling, other (Patient has no erythema over the hand. Normal radial pulse.). Absent: normal inspection (Patient has significant swelling noted over the hand.), full ROM, abrasion Neuro motor exam: Present: wrist extension intact, thumb opposition intact, thumb IP flexion intact, thumb adduction intact, fingers 2-5 abduction intact Neurosensory exam: Present: 2-point discrimination Vascular: Present: normal capillary refill Back exam: Present: normal inspection Neurological exam: Present: alert, oriented X3, CN II-XII intact Psychiatric exam: Present: normal affect, normal mood Skin exam: Present: warm, dry, intact, normal color. Absent: rash Course Vital Signs 08/27/17 08/27/17 09:21 11:00 Temperature 97.0 F L Pulse Rate 85 89 Respiratory 18 18 Rate Blood Pressure 126/73 136/72 O2 Sat by Pulse 98 98 Oximetry - Reevaluation(s) Reevaluation #1: 08/27/17 13:03 Patient was reevaluated at this time. His wrist does appear to be somewhat warm and some slight erythema noted. Discussed all of his lab work findings with him. Told he has elevated white blood cell count. Dr. Worthington also examined the patient. Patient discussed this with Dr. Lowe. He will be coming in to evaluate the patient and do a joint aspiration. Medical Decision Making - Medical Decision Making Patient is a 57-year-old male presents emergency Department chief complaint of left arm and wrist pain and swelling. No known trauma. Patient received IV fluids, lab work obtained. Ultrasound also completed. Ultrasound was negative for any DVT. X-rays show a previous triquetral fracture but no other significant abnormalities. His blood work shows old evidence of leukocytosis with white blood cell count 15.7. Also elevated CRP 100. Discusses Dr. Perez. Dr. Lowe the on-call physician completed a joint aspiration. At that time they were able to obtain some fluid which appear to be puslike. The lab was unable to obtain a cell culture or count due to the lack of fluid. Patient will be admitted to Dr. Lowe, high suspicion for septic arthritis. We will keep the patient nothing by mouth at this time. Dr. Lowe plans to take the patient to the operating room to get a culture. He suggested keeping the patient off of antibiotics until culture is obtained. We will also consult infectious disease. understands treatment plan will comply. Return parameters were discussed. - Lab Data Result diagrams: 08/27/17 10:15 08/27/17 10:15 Lab Results 08/27/17 08/27/17 08/27/17 Range/Units 10:15 10:15 10:15 WBC 15.3 H (3.8-10.6) k/uL RBC 4.22 L (4.30-5.90) m/uL Hgb 13.4 (13.0-17.5) gm/dL Hct 40.9 (39.0-53.0) % MCV 96.8 (80.0-100.0) fL MCH 31.7 (25.0-35.0) pg MCHC 32.7 (31.0-37.0) g/dL RDW 12.9 (11.5-15.5) % Plt Count 346 (150-450) k/uL Neutrophils % 81 % Lymphocytes % 10 % Monocytes % 7 % Eosinophils % 0 % Basophils % 0 % Neutrophils # 12.3 H (1.3-7.7) k/uL Lymphocytes # 1.5 (1.0-4.8) k/uL Monocytes # 1.0 (0-1.0) k/uL Eosinophils # 0.0 (0-0.7) k/uL Basophils # 0.0 (0-0.2) k/uL Sodium 135 L (137-145) mmol/L Potassium 5.1 (3.5-5.1) mmol/L Chloride 102 (98-107) mmol/L Carbon Dioxide 22 (22-30) mmol/L Anion Gap 11 mmol/L BUN 17 (9-20) mg/dL Creatinine 0.70 (0.66-1.25) mg/dL Est GFR (MDRD) Af Amer >60 (>60 ml/min/1.73 sqM) Est GFR (MDRD) Non-Af >60 (>60 ml/min/1.73 sqM) Glucose 129 H (74-99) mg/dL Uric Acid 5.2 (3.5-8.5) mg/dL Calcium 8.8 (8.4-10.2) mg/dL Total Bilirubin 0.6 (0.2-1.3) mg/dL AST 33 (17-59) U/L ALT 51 (21-72) U/L Alkaline Phosphatase 142 H (38-126) U/L C-Reactive Protein 169.9 H (<10.0) mg/L Total Protein 7.4 (6.3-8.2) g/dL Albumin 3.5 (3.5-5.0) g/dL - Radiology Data Radiology results: report reviewed Ultrasound of the left lower upper extremity is negative for any acute DVT. X- rays of the hand and wrist were obtained. Evidence of a previous triquetral fracture. No evidence of any new abnormalities. Disposition Clinical Impression: Left wrist pain, Septic arthritis of wrist, left Disposition: ADMITTED IP TO THIS HOSP Condition: Stable Referrals: Angus Pham MD [Primary Care Provider] - 1-2 days Time of Disposition: 14:00
[2017-08-27] MEDS: SODIUM CHLORIDE 0.9% 1,000 ML IV SCH ×2 (10:23→20:55)
[2017-08-27 10:34] LABS: Basophils % (A) 0 %; CH 32.3; CHCM 33.5; Eosinophils % (A) 0 %; HCT 40.9 % (39.0-53.0); HDW 3.01; HGB 13.4 gm/dL (13.0-17.5); Luc # (Auto) 0.37; Luc % (Auto) 2; Lymphocytes # (A) 1.5 k/uL (1.0-4.8); Lymphocytes % (A) 10 %; MCH 31.7 pg (25.0-35.0); MCHC 32.7 g/dL (31.0-37.0); MCV 96.8 fL (80.0-100.0); Mean Platelet Volume 7.4; Monocytes % (A) 7 %; Neutrophils # (A) 12.3 k/uL (1.3-7.7); Neutrophils % (A) 81 %; RBC 4.22 m/uL (4.30-5.90); RDW 12.9 % (11.5-15.5); WBC 15.3 k/uL (3.8-10.6); WBC (Perox) 14.82
[2017-08-27 10:39] LABS: Blood Urea Nitrogen 17 mg/dL (9-20); Calcium 8.8 mg/dL (8.4-10.2); Chloride 102 mmol/L (98-107); Non-African American GFR(MDRD) >60 (>60 ml/min/1.73 sqM); Sodium 135 mmol/L (137-145); Total Bilirubin 0.6 mg/dL (0.2-1.3); Total Protein 7.4 g/dL (6.3-8.2); Uric Acid 5.2 mg/dL (3.5-8.5)
[2017-08-27 10:46] LABS: ALT 51 U/L (21-72); AST 33 U/L (17-59); Alkaline Phosphatase 142 U/L (38-126); Anion Gap 11 mmol/L; Carbon Dioxide 22 mmol/L (22-30); Glucose 129 mg/dL (74-99)
[2017-08-27 10:49] LABS: Potassium 5.1 mmol/L (3.5-5.1)
--- NOTE | 2017-08-27 11:05 | XR ---
EXAMINATION TYPE: XR hand complete LT , 3 VIEWS DATE OF EXAM ORDERED: 08/27/2017 HISTORY: Pain. COMPARISON: None. FINDINGS: No fracture, dislocation or other acute osseous lesion is seen. There is soft tissue swell ing over the dorsum of the hand. There is degenerative change in the triscaphe joint. The carpal kathleen te is abnormal. The scapholunate distance is widened. There is cystic change in the triquetrum. IMPRESSION: 1. NO ACUTE OSSEOUS LESION. 2. MODERATELY SEVERE DEGENERATIVE CHANGE WITHIN THE LEFT WRIST.
--- NOTE | 2017-08-27 11:37 | XR ---
EXAMINATION TYPE: XR wrist complete LT , 4 VIEWS DATE OF EXAM ORDERED: 08/27/2017 HISTORY: Pain. COMPARISON: None. FINDINGS: There is a mild ulnar minus variant. There is an ossific fragment posterior to the wrist w hich may represent an old triquetral fracture. There is cystic change in the carpal lunate as well as the triquetrum. There is mild degenerative change in the triscaphe joint. There is soft tissue swell ing over the dorsum of the wrist and hand. There is cystic change in the distal ulna. IMPRESSION: 1. NO ACUTE OSSEOUS LESION. 2. EVIDENCE OF AN OLD TRIQUETRAL FRACTURE. 3. MODERATE DEGENERATIVE CHANGE.
--- NOTE | 2017-08-27 12:06 | US ---
EXAMINATION TYPE: US venous doppler duplex UE LT DATE OF EXAM: 08/27/2017 COMPARISON: NONE CLINICAL HISTORY: Pain. Left arm pain and numbness x 2 days SIDE PERFORMED: Left Left Arm: Appears negative for DVT IMPRESSION: THIS EXAMINATION IS NEGATIVE FOR DVT IN THE LEFT ARM.
[2017-08-27] MEDS ORDERED: RX INFO: IV CONTRAST WAS GIVEN 1 EACH MISC MISCELLANE PRN (13:28)
--- NOTE | 2017-08-27 13:49 | P.HPOR ---
History of Present Illness H&P Date: 08/27/17 Chief Complaint: left wrist pain The patient is a right hand dominant 57-year-old male with a medical history significant for COPD and current tobacco use who presents to the emergency department with a 4 day history of progressively worsening, atraumatic left wrist pain. The patient was seen by his primary care physician yesterday who diagnosed him clinically with gout and started him on prednisone and colchicine. Over the past 24 hours he has had increasing pain and swelling in the left wrist. He presented to the emergency department this morning due to his wrist pain. Orthopedics was consulted for a left wrist aspiration. At the time of my evaluation the patient is complaining of isolated left wrist pain. He denies any improvement since being started on colchicine and prednisone. He denies any history of gout. He denies feeling systemically sick and denies fevers, chills, generalized malaise, nausea, or vomiting. Past Medical History Past Medical History: COPD History of Any Multi-Drug Resistant Organisms: None Reported Past Surgical History: No Surgical Hx Reported Past Anesthesia/Blood Transfusion Reactions: No Reported Reaction Past Psychological History: No Psychological Hx Reported Smoking Status: Former smoker Past Alcohol Use History: Daily Past Drug Use History: Marijuana - Past Family History Mother Family Medical History: Cancer Additional Family Medical History / Comment(s): brain cancer Medications and Allergies Home Medications Medication Instructions Recorded Confirmed Type Albuterol Inhaler [Ventolin Hfa 1 puff INHALATION RT-Q4H PRN 07/25/17 08/27/17 History Inhaler] Colchicine [Colcrys] 0.6 mg PO DAILY 08/27/17 08/27/17 History Ipratropium-Albuterol Nebulize 3 ml INHALATION RT-QID PRN 08/27/17 08/27/17 History [Duoneb 0.5 mg-3 mg/3 ml Soln] predniSONE 50 mg PO DAILY 08/27/17 08/27/17 History Allergies Allergy/AdvReac Type Severity Reaction Status Date / Time budesonide [From Symbicort] AdvReac Fever, Verified 08/27/17 11:10 Shakes, Nausea, Vomitting formoterol [From Symbicort] AdvReac Fever, Verified 08/27/17 11:10 Shakes, Nausea, Vomitting Physical Examination The patient is in moderate distress secondary to his left wrist. He is alert and oriented and able to answer questions. His head is normocephalic and atraumatic. He demonstrates nonlabored breathing with symmetric chest expansion. His abdomen is obese. A focused exam of the left upper extremity was conducted. On inspection of the left wrist there is diffuse swelling both dorsally and volarly. There is minimal erythema dorsally, but mild erythema over the volar aspect of the wrist. There is no palpable fluctuance or subcutaneous crepitance. He has exquisite pain with any attempted passive range of motion of the left wrist. There are no open wounds. The forearm is soft and compressible. There is no ascending erythema or lymphangitis. Sensation is intact to light touch throughout the arm in the distribution of the median, ulnar, and radial nerves. Motor function is intact in the distribution of the median, ulnar, and radial nerves. Results X-rays of the patient's left wrist show no acute fractures or evidence of chronic osteomyelitis. - Labs Labs: Abnormal Lab Results - Last 24 Hours (Table) 08/27/17 08/27/17 08/27/17 Range/Units 10:15 10:15 10:15 WBC 15.3 H (3.8-10.6) k/uL RBC 4.22 L (4.30-5.90) m/uL Neutrophils # 12.3 H (1.3-7.7) k/uL Sodium 135 L (137-145) mmol/L Glucose 129 H (74-99) mg/dL Alkaline Phosphatase 142 H (38-126) U/L C-Reactive Protein 169.9 H (<10.0) mg/L H & H 08/27/17 Range/Units 10:15 Hgb 13.4 (13.0-17.5) gm/dL Hct 40.9 (39.0-53.0) % Result Diagrams: 08/27/17 10:15 08/27/17 10:15 Assessment and Plan (1) Wrist pain, acute Current Visit: Yes Status: Acute Code(s): M25.539 - PAIN IN UNSPECIFIED WRIST SNOMED Code(s): 52291541 Plan: The patient has clinical findings suggestive of a septic left wrist. An aspiration was performed in the emergency department. 1 mL of cloudy, purulent fluid was aspirated and sent to the lab for cell count, cultures, and crystals. The patient is going to be Nothing by mouth. We will hold antibiotics in the event that he needs an irrigation and debridement of the wrist so we can obtain deep cultures. If the wrist aspiration comes back concerning for septic arthritis the patient will need a formal incision and drainage in the operating room. Due to the swelling, tenderness and erythema volarly I would also like to get a computed tomography scan with contrast of the wrist to rule out an abscess or fluid collection volarly. We will also obtain an ESR and CRP to help monitor treatment if his wrist is in fact infected. If the patient needs to be admitted he will also need an infectious disease consult. If the workup is negative the patient can discharge from the ER. We will closely follow the results of the patient's aspiration and computed tomography scan and make recommendations accordingly. Procedure: Verbal consent for a left wrist aspiration was obtained. The skin over the dorsal aspect of the wrist just distal to Luisito's tubercle was prepped first with alcohol and then with ChloraPrep. Using sterile technique an 18-gauge needle was inserted into the radiocarpal joint just distal to Luisito 's tubercle. I was able to withdraw 1 mL of cloudy, purulent fluid. The needle was withdrawn and a Band-Aid was applied. The needle was removed for the syringe and the syringe was capped. The fluid was sent to the lab for cell count, cultures, and crystals. The patient tolerated this well with no complications. Time with Patient: Greater than 30
[2017-08-27] MEDS ORDERED: IBUPROFEN 400 MG TAB PO PRN (14:01)
[2017-08-27] MEDS ORDERED: ONDANSETRON 4 MG/2 ML VIAL IVP PRN (14:01)
[2017-08-27] MEDS ORDERED: NALOXONE 0.4 MG/ML 1 ML VIAL IV PRN (14:01)
[2017-08-27 14:50] VITALS: BMI 47.7
--- NOTE | 2017-08-27 15:14 | CT ---
EXAMINATION TYPE: CT wrist LT w con DATE OF EXAM: 08/27/2017 COMPARISON: NONE HISTORY: Left wrist pain and swelling, possible septic arthritis. CT DLP: 186.00 mGycm Automated exposure control for dose reduction was used. CONTRAST: Performed with IV Contrast, patient injected with 100 mL of Omnipaque 300. FINDINGS: There are multiple areas of cystic change involving the triquetrum the distal ulna, hamate. There is fragmentation and cystic change in the lunate with osteosclerosis. I see no acute fracture. There are small cystic changes also in the capitate. There is mild spurring in multiple carpal bones. There is mild subcutaneous edema around the wrist. IMPRESSION: OSTEOARTHRITIC CHANGES WITH MULTIPLE DEGENERATIVE CYSTS IN THE CARPAL BONES AND DISTAL ULNA. THERE AR E CHANGES IN THE LUNATE CONSISTENT WITH CHRONIC AVASCULAR NECROSIS. I DO NOT SEE EROSIVE BONE DESTRUC TION TO SUGGEST SEPTIC ARTHRITIS.
--- NOTE | 2017-08-27 16:25 | P.CONS ---
History of Present Illness - History of Present Illness Present pleasant 57-year-old gentleman came in with complaints of pain swelling has been going on for few days the right hand, patient was started on upper dissonant colchicine by primary care physician. Patient has significant swelling and pain in the right hand atraumatic wrist pain with local is of temperature and red redness aspiration of the wrist was done by orthopedic surgery which revealed the possibility apparently. All the risks surgery is undertaken from incision and drainage after which cultures will be obtained plan is to start him on antibiotics after the deep cultures. Patient denied any fever chills, denied any nausea vomiting. CAT scan of the wrist was reviewed which showed severe osteoarthritis. Review of Systems REVIEW OF SYSTEMS: CONSTITUTIONAL: No fever, no malaise, no fatigue. HEENT: No recent visual problems or hearing problems. Denied any sore throat. CARDIOVASCULAR: No chest pain, orthopnea, PND, no palpitations, no syncope. PULMONARY: No shortness of breath, no cough, no hemoptysis. GASTROINTESTINAL: No diarrhea, no nausea, no vomiting, no abdominal pain. Normoactive bowel sounds. NEUROLOGICAL: No headaches, no weakness, no numbness. HEMATOLOGICAL: Denies any bleeding or petechiae. GENITOURINARY: Denies any burning micturition, frequency, or urgency. MUSCULOSKELETAL/RHEUMATOLOGICAL: As described in HPI ENDOCRINE: Denies any polyuria or polydipsia. The rest of the 14-point review of systems is negative. Past Medical History Past Medical History: COPD, Pneumonia History of Any Multi-Drug Resistant Organisms: None Reported Past Surgical History: No Surgical Hx Reported Past Anesthesia/Blood Transfusion Reactions: No Reported Reaction Past Psychological History: No Psychological Hx Reported Smoking Status: Former smoker Past Alcohol Use History: Daily Additional Past Alcohol Use History / Comment(s): 2-4 beers a day. smokes 1 pack a day on weekdays and 2 ppd on the weekends Past Drug Use History: Marijuana Additional Drug Use History / Comment(s): recreational use, on weekends - Past Family History Mother Family Medical History: Cancer Additional Family Medical History / Comment(s): brain cancer Medications and Allergies Home Medications Medication Instructions Recorded Confirmed Type Albuterol Inhaler [Ventolin Hfa 1 puff INHALATION RT-Q4H PRN 07/25/17 08/27/17 History Inhaler] Colchicine [Colcrys] 0.6 mg PO DAILY 08/27/17 08/27/17 History Ipratropium-Albuterol Nebulize 3 ml INHALATION RT-QID PRN 08/27/17 08/27/17 History [Duoneb 0.5 mg-3 mg/3 ml Soln] predniSONE 50 mg PO DAILY 08/27/17 08/27/17 History Allergies Allergy/AdvReac Type Severity Reaction Status Date / Time budesonide [From Symbicort] AdvReac Fever, Verified 08/27/17 11:10 Shakes, Nausea, Vomitting formoterol [From Symbicort] AdvReac Fever, Verified 08/27/17 11:10 Shakes, Nausea, Vomitting Physical Exam Vitals: Vital Signs Temp Pulse Pulse Resp BP BP Pulse Ox 08/27/17 15:00 98.6 F 83 16 136/72 96 08/27/17 14:07 98.6 F 81 18 122/76 98 08/27/17 11:00 89 18 136/72 98 08/27/17 09:21 97.0 F L 85 18 126/73 98 Intake and Output 08/27/17 08/27/17 08/27/17 06:59 14:59 22:59 Other: Weight 142.428 kg Patient Weight 08/28/17 05:59 Weight 142.428 kg PHYSICAL EXAMINATION: GENERAL: The patient is alert and oriented x3, not in any acute distress. Obese HEENT: Pupils are round and equally reacting to light. EOMI. No scleral icterus. No conjunctival pallor. Normocephalic, atraumatic. No pharyngeal erythema. No thyromegaly. CARDIOVASCULAR: S1 and S2 present. No murmurs, rubs, or gallops. PULMONARY: Chest is clear to auscultation, no wheezing or crackles. ABDOMEN: Soft, nontender, nondistended, normoactive bowel sounds. No palpable organomegaly. MUSCULOSKELETAL: minimal erythema dorsally, but mild erythema over the dorsal aspect of the wrist. EXTREMITIES: No cyanosis, clubbing, or pedal edema. NEUROLOGICAL: Gross neurological examination did not reveal any focal deficits. SKIN: No rashes. Results CBC & Chem 7: 08/27/17 10:15 08/27/17 10:15 Labs: Abnormal Lab Results - Last 24 Hours (Table) 08/27/17 08/27/17 08/27/17 Range/Units 10:15 10:15 10:15 WBC 15.3 H (3.8-10.6) k/uL RBC 4.22 L (4.30-5.90) m/uL Neutrophils # 12.3 H (1.3-7.7) k/uL Sodium 135 L (137-145) mmol/L Glucose 129 H (74-99) mg/dL Alkaline Phosphatase 142 H (38-126) U/L C-Reactive Protein 169.9 H (<10.0) mg/L Microbiology - Last 24 Hours (Table) 08/27/17 13:39 Gram Stain - Preliminary Aspirate Assessment and Plan Plan: #1 right breast pain and swelling: Possibility of septic arthritis, incision and drainage today after that patient will be started on antiviral medics as mentioned above. Possibly of gout cannot be ruled out, patient is already in nonsteroidal anti-intermittent pruritus which will be continued. We'll hold off on prednisone month ago incision and drainage and antibiotics. #2 COPD without any acute exacerbation, continue on albuterol ipratropium. #3 obesity: Counseling was provided #4 leukocytosis secondary to either septic arthritis or due to prednisone he was receiving at home
[2017-08-27] MEDS ORDERED: LIDOCAINE 1% INJ 10MG/ML (20 ML MDV) ONE (17:40)
[2017-08-27] MEDS ORDERED: fentaNYL (PF) 50 MCG/ML 2 ML AMP ONE (17:40)
[2017-08-27] MEDS ORDERED: LABETALOL 5 MG/ML VIAL MDV ONE (17:40)
[2017-08-27] MEDS ORDERED: IV FLUID CONTINUATION 300 ML IV ONE (17:40)
[2017-08-27] MEDS ORDERED: PROPOFOL 10 MG/ML 20 ML VIAL IV ONE (17:40)
[2017-08-27] MEDS ORDERED: MIDAZOLAM 2 MG/2 ML VIAL ONE (17:40)
[2017-08-27] MEDS ORDERED: SUCCINYLCHOLINE CHLORIDE 100 MG/5 ML SYR IV ONE (17:40)
[2017-08-27] MEDS ORDERED: DIPH,PERTUS(ACELL)TETVAC-LF 0.5 ML VIAL IM ONE (18:05)
--- NOTE | 2017-08-27 18:05 | P.CONS ---
History of Present Illness - Reason for Consult Consult date: 08/27/17 - Chief Complaint Pain to left wrist - History of Present Illness 57-year-old male presents to emergency center because of significant and worsening pain to his left wrist. The patient relates been worsening over the last 96 hours. He does not recall any specific trauma to the area. 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 He discusses using mouse, and rollerball's. He does not recall any specific trauma to the area. He has not started any new activities. Has not been utilizing hammers or power tools or shooting any weapons. He recalls no falls. He does relate that he recently was hospitalized for a short period of time because of a bout of his COPD. He had an IV that was placed in his left arm but not on his left wrist area. He was treated with antibiotic therapy oxygen and steroids. He relates no history of gout and has never had an event like this in any of his joints in the past. He started with some discomfort that became so severe that he presented to the emergency center. Is associated with fever and chill and temperature of greater than 102. He recalls no other changes in his day-to-day operation. He was he does a lot of his work left-handed and the current severe pain has significantly inhibited his daily activity. Review of Systems 57-year-old male who suffers from obesity, complains of the severe pain to his left wrist. HEENT:Denies headache or acute visual change. Denies sinus or mouth discomforts. Denies neck stiffness or pain. Denies significant oral cavity pain. Denies difficulty on swallowing. Lungs: Denies significant shortness of breath, cough, sputum production, or hemoptysis. Cardiovascular: Denies significant shortness of breath, chest pain, chest wall pain, orthopnea, dyspnea on exertion, syncope Gastrointestinal:Denies nausea, vomiting, diarrhea, constipation, hematemesis, melena, hematochezia. No no significant change of bowel habit noticed. Musculoskeletal: As per the HPI severe pain to his left wrist. Denies other significant joint pain or swelling. Denies any difficulty ascending the left arm. Denies pain at the left elbow or left shoulder. Skin: Denies new rash or lesions. No new ulcers or wounds are related.. Neuro: Denies headache or visual change. Denies any new onset weakness or difficulty with ambulation. Denies falls or seizures. Psychiatric:Denies anxiety or depression. Endocrine: Denies significant fatigue, denies significant weight loss or weight gain. Past Medical History Past Medical History: COPD, Pneumonia History of Any Multi-Drug Resistant Organisms: None Reported Past Surgical History: No Surgical Hx Reported Past Anesthesia/Blood Transfusion Reactions: No Reported Reaction Past Psychological History: No Psychological Hx Reported Additional Psychological History / Comment(s): and lives in the family home with his . Adult children. 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 No experience. No international travel. No animal exposures in the home. Stopped tobacco smoking within the last 10 days. Kishor alcohol and a daily basis. Axillae 6 beers per day. Relates over the last 10-14 days he's had no severe alcohol use. Starting with his recent hospital stay for his exacerbation of COPD. Relates that he has not had significant alcohol intake since that time till now. No history of any DTs or alcohol withdrawal. He denies recreational drug use. No history of injection drug use. Smoking Status: Former smoker Past Alcohol Use History: Daily Additional Past Alcohol Use History / Comment(s): 2-4 beers a day. smokes 1 pack a day on weekdays and 2 ppd on the weekends Past Drug Use History: Marijuana Additional Drug Use History / Comment(s): recreational use, on weekends - Past Family History Mother Family Medical History: Cancer Additional Family Medical History / Comment(s): brain cancer Medications and Allergies Home Medications and Allergies Comment(s): Current Medications Acetaminophen (Tylenol Tab) 650 mg PO Q6HR PRN PRN Reason: Mild Pain or Fever > 100.5 Albuterol Sulfate (Ventolin Nebulized) 2.5 mg INHALATION RT-Q4H PRN PRN Reason: Dyspnea Albuterol/Ipratropium (Duoneb 0.5 Mg-3 Mg/3 Ml Soln) 3 ml INHALATION RT-QID PRN PRN Reason: sob Hydromorphone HCl (Dilaudid) 1 mg IVP Q3HR PRN PRN Reason: Severe Pain Sodium Chloride (Saline 0.9%) 1,000 mls @ 100 mls/hr IV .Q10H BONIFACIO Last Admin: 08/27/17 10:23 Dose: 100 mls/hr Ibuprofen (Motrin) 400 mg PO Q6HR PRN PRN Reason: Mild Pain or Fever > 100.5 Ketorolac Tromethamine (Toradol) 30 mg IVP Q6HR PRN PRN Reason: Moderate Pain Stop: 09/01/17 14:02 Miscellaneous Information (Rx Info: Iv Contrast Was Given) 1 each MISCELLANE DAILY PRN PRN Reason: Per Protocol Stop: 08/29/17 13:29 Naloxone HCl (Narcan) 0.2 mg IV Q2M PRN PRN Reason: Opioid Reversal Ondansetron HCl (Zofran) 4 mg IVP Q8HR PRN PRN Reason: Nausea And Vomiting Pantoprazole Sodium (Protonix) 40 mg IV DAILY BONIFACIO Home Medications Medication Instructions Recorded Confirmed Type Albuterol Inhaler [Ventolin Hfa 1 puff INHALATION RT-Q4H PRN 07/25/17 08/27/17 History Inhaler] Colchicine [Colcrys] 0.6 mg PO DAILY 08/27/17 08/27/17 History Ipratropium-Albuterol Nebulize 3 ml INHALATION RT-QID PRN 08/27/17 08/27/17 History [Duoneb 0.5 mg-3 mg/3 ml Soln] predniSONE 50 mg PO DAILY 08/27/17 08/27/17 History Allergies Allergy/AdvReac Type Severity Reaction Status Date / Time budesonide [From Symbicort] AdvReac Fever, Verified 08/27/17 11:10 Shakes, Nausea, Vomitting formoterol [From Symbicort] AdvReac Fever, Verified 08/27/17 11:10 Shakes, Nausea, Vomitting Physical Exam Vitals: Vital Signs Temp Pulse Pulse Resp BP BP Pulse Ox 08/27/17 15:00 98.6 F 83 16 136/72 96 08/27/17 14:07 98.6 F 81 18 122/76 98 08/27/17 11:00 89 18 136/72 98 08/27/17 09:21 97.0 F L 85 18 126/73 98 Intake and Output 08/27/17 08/27/17 08/27/17 06:59 14:59 22:59 Other: Weight 142.428 kg Patient Weight 08/28/17 05:59 Weight 142.428 kg 57-year-old male who suffers from obesity is very uncomfortable. He has difficulty sitting upright with his left arm and unsupported position because of the severe pain. He relates the pain is actually making him feel lightheaded and nauseated. At this time the surgical team is arriving taken to the operating room for his incision and drainage. HEENT: Anicteric conjunctiva are pink and moist nasal mucosa grossly intact without significant lesions, there is no thrush. Dentition is quite warm for age Neck: The neck is supple without significant lymphadenopathy or thyromegaly. Lungs: Symmetrical air entry is noted, there are loud wheezes at the lung vaughn. Scattered crackles are heard. No distinct bronchial sounds are noted. There is no dullness or egophony. No changes of tactile fremitus. Heart: Regular rate and rhythm with an audible S1-S2, no S3 loud S4.. There is no significant murmur click or rub, PMI was nondisplaced. Abdomen: Obese, Positive bowel sounds soft and nontender without palpable masses or organomegaly. There was no guarding or rebound. Extremities: The right upper extremity has evidence of an IV site. There is no evidence of any significant swelling or difficulties with the right upper extremity. The left upper extremity shows that the significant swelling about the left wrist onto the hand. The fingers and soles are also swollen. There is extreme pain with any attempts for range of motion of the left wrist. The site of the attempt of the aspiration the joint is noted. It is tender and not significantly bruised. There is mild erythema that surrounds this area. No other lesions are seen. There is no evidence of any ascending infection. The left elbow and left shoulder are without significant tenderness or swelling or difficulty with range of motion. The lower extremities reveal evidence ofsignificant edema. The peripheral pulses are 2+ and symmetric throughout. There is no evidence of any epitrochlear lymphadenopathy to the left arm or axillary lymphadenopathy. No other abnormal lymph nodes were seen. Neuro: Awake alert oriented to person place and time. There are no acute new gross focal sensory motor deficits. Results CBC & Chem 7: 08/27/17 10:15 08/27/17 10:15 Labs: Abnormal Lab Results - Last 24 Hours (Table) 08/27/17 08/27/17 08/27/17 Range/Units 10:15 10:15 10:15 WBC 15.3 H (3.8-10.6) k/uL RBC 4.22 L (4.30-5.90) m/uL Neutrophils # 12.3 H (1.3-7.7) k/uL Sodium 135 L (137-145) mmol/L Glucose 129 H (74-99) mg/dL Alkaline Phosphatase 142 H (38-126) U/L C-Reactive Protein 169.9 H (<10.0) mg/L Microbiology - Last 24 Hours (Table) 08/27/17 13:39 Gram Stain - Preliminary Aspirate Laboratory Results WBC 15.3 k/uL (3.8-10.6) H 08/27/17 10:15 RBC 4.22 m/uL (4.30-5.90) L 08/27/17 10:15 Hgb 13.4 gm/dL (13.0-17.5) 08/27/17 10:15 Hct 40.9 % (39.0-53.0) 08/27/17 10:15 MCV 96.8 fL (80.0-100.0) 08/27/17 10:15 MCH 31.7 pg (25.0-35.0) 08/27/17 10:15 MCHC 32.7 g/dL (31.0-37.0) 08/27/17 10:15 RDW 12.9 % (11.5-15.5) 08/27/17 10:15 Plt Count 346 k/uL (150-450) 08/27/17 10:15 Neutrophils % 81 % 08/27/17 10:15 Lymphocytes % 10 % 08/27/17 10:15 Monocytes % 7 % 08/27/17 10:15 Eosinophils % 0 % 08/27/17 10:15 Basophils % 0 % 08/27/17 10:15 Neutrophils # 12.3 k/uL (1.3-7.7) H 08/27/17 10:15 Lymphocytes # 1.5 k/uL (1.0-4.8) 08/27/17 10:15 Monocytes # 1.0 k/uL (0-1.0) 08/27/17 10:15 Eosinophils # 0.0 k/uL (0-0.7) 08/27/17 10:15 Basophils # 0.0 k/uL (0-0.2) 08/27/17 10:15 Sodium 135 mmol/L (137-145) L 08/27/17 10:15 Potassium 5.1 mmol/L (3.5-5.1) 08/27/17 10:15 Chloride 102 mmol/L (98-107) 08/27/17 10:15 Carbon Dioxide 22 mmol/L (22-30) 08/27/17 10:15 Anion Gap 11 mmol/L 08/27/17 10:15 BUN 17 mg/dL (9-20) 08/27/17 10:15 Creatinine 0.70 mg/dL (0.66-1.25) 08/27/17 10:15 Est GFR (MDRD) Af Amer >60 (>60 ml/min/1.73 sqM) 08/27/17 10:15 Est GFR (MDRD) Non-Af >60 (>60 ml/min/1.73 sqM) 08/27/17 10:15 Glucose 129 mg/dL (74-99) H 08/27/17 10:15 Uric Acid 5.2 mg/dL (3.5-8.5) 08/27/17 10:15 Calcium 8.8 mg/dL (8.4-10.2) 08/27/17 10:15 Total Bilirubin 0.6 mg/dL (0.2-1.3) 08/27/17 10:15 AST 33 U/L (17-59) 08/27/17 10:15 ALT 51 U/L (21-72) 08/27/17 10:15 Alkaline Phosphatase 142 U/L (38-126) H 08/27/17 10:15 C-Reactive Protein 169.9 mg/L (<10.0) H 08/27/17 10:15 Total Protein 7.4 g/dL (6.3-8.2) 08/27/17 10:15 Albumin 3.5 g/dL (3.5-5.0) 08/27/17 10:15 Microbiology 08/27/17 13:39 Aspirate Gram Stain - Preliminary Assessment and Plan (1) Septic arthritis of wrist, left Narrative/Plan: 57-year-old male presents to the emergency center with severe pain to his left wrist. He has been seen by orthopedics. He's been taking Ringworm for incision and drainage of the septic arthritis to his left wrist. The aspiration that was performed revealed evidence of a grossly purulent material. Studies are process. Further cultures and cytology will be obtained from the surgical debridement occurring at this time. Antimicrobial therapy will be initially with vancomycin and ceftriaxone this point in time until there is further information available. Local wound care will be described depending on the findings of the surgical process. Patient's neutropenia leukocytosis directly to the current septic arthritis The markedly elevated CRP is also directly related to the septic arthritis. The patient doesn't have an update of his tetanus vaccine. Protein levels will be checked Multivitamin will be utilized The case is discussed with the surgeon. He does have a history of cigarette and alcohol use. However is now been several weeks since he has had sleeping alcohol intake. He will be monitored through our protocol. He does have a history of being a tobacco smoker but just stopped in the last 2 weeks. Continue with respiratory treatments since he is wheezing quite a bit. Incentive spirometry will be important postoperative period Current Visit: Yes Status: Acute Code(s): M00.9 - PYOGENIC ARTHRITIS, UNSPECIFIED SNOMED Code(s): 130172584 (2) COPD (chronic obstructive pulmonary disease) Current Visit: Yes Status: Acute Code(s): J44.9 - CHRONIC OBSTRUCTIVE PULMONARY DISEASE, UNSPECIFIED SNOMED Code(s): 38627422 (3) Leukocytosis Current Visit: Yes Status: Acute Code(s): D72.829 - ELEVATED WHITE BLOOD CELL COUNT, UNSPECIFIED SNOMED Code(s): 855638317 (4) Elevated C-reactive protein (CRP) Current Visit: Yes Status: Acute Code(s): R79.82 - ELEVATED C-REACTIVE PROTEIN (CRP) SNOMED Code(s): 324971312
[2017-08-27] MEDS ORDERED: VANCOMYCIN IV PER PHARMACY 1 EACH MISC MISCELLANE PRN (18:06)
[2017-08-27] MEDS ORDERED: LACTATED RINGERS 1,000 ML IV ONE (18:13)
[2017-08-27] MEDS ORDERED: ceFAZolin 1,000 MG in SODIUM CHLORIDE 0.9% 1,000 ML IRRIGATION ONE (18:13)
[2017-08-27] MEDS ORDERED: ALBUTEROL NEBULIZED 2.5 MG/3 ML INHALATION ONE (18:45)
[2017-08-27] MEDS: MEPERIDINE 50 MG/ML SYRINGE IVP ONE ×2 (18:50→18:55)
--- NOTE | 2017-08-27 18:58 | P.OP ---
Date of Procedure: 08/27/17 Preoperative Diagnosis: 1. Septic arthritis left wrist 2. Chronic alcohol abuse 3. Chronic tobacco use 4. COPD Postoperative Diagnosis: Same Procedure(s) Performed: 1. Incision and drainage of left septic wrist 2. Irrigation and debridement left wrist Anesthesia: TAYLOR Surgeon: Joey Lowe Estimated Blood Loss (ml): 10 IV fluids (ml): 400 Pathology: other (deep cultures) Condition: stable Disposition: PACU Indications for Procedure: The patient is a 57-year-old male with multiple medical problems including COPD , chronic tobacco use, and alcoholism. The patient has had 4 days of progressively worsening left wrist pain. He was seen by his primary care physician who diagnosed him with gout and placed him on prednisone ankle to seen. He had increasing pain in the left wrist and presented to the emergency department. He had elevated ESR and CRP. Orthopedics was consulted and I aspirated his wrist. Varghese pus was obtained. The fluid was sent to the lab and a Gram stain showed gram-positive cocci in clusters. I discussed with the patient and his that he would need an urgent incision and drainage. We discussed potential risks and complication of surgery including but not limited to risk of anesthesia, risk of superficial infection, risk of deep infection, risk of damage to local blood vessels or nerves, risk of tendon damage, risk of this infection spreading, risk of need for further surgery, and possibly loss of life or limb. The patient and his understand that he is a higher risk of having a complication due to his smoking and alcoholism. They provided their consent to go forward with surgery. Operative Findings: Gross purulence from the radiocarpal joint Description of Procedure: the patient was identified in preop holding and the correct left limb was marked with my initials. I verified the consent form with the patient. All of his questions were answered. The patient was then brought back to the operating room. He was positioned a general anesthetic was administered. The patient's left arm was then prepped and draped in the standard sterile fashion. Prior to starting surgery timeout was performed identifying the correct patient, operative extremity, and procedure. I began by outlining a dorsal incision over the dorsum of the wrist. The skin marking started just distal to Luisito's tubercle and was extended distally in line with the middle finger. Skin incision was made with a 15 blade scalpel. I dissected carefully down through the subcutaneous tissue with tenotomy scissors. The extensor retinaculum was identified. I sharply incised the extensor retinaculum over the EDC. I developed the interval to the wrist between the third and fourth compartment. I incised the dorsal wrist capsule sharply with a scalpel. Immediately upon entering the wrist joint a large alba of pus was encountered. Deep cultures were taken including swabs and soft tissue. Nonviable-appearing tissue from the joint capsule was sharply excised with a scalpel. The wound was then copiously irrigated with 1 L of sterile saline using cystoscopy tubing. After the joint was irrigated the retinaculum was closed loosely with an 0 Prolene stitch. The deep subcutaneous layer was closed using 3-0 Prolene. The skin was closed using 3-0 nylon. I verified that all instrument, sponge, and sharp counts were correct. A sterile dressing consisting of Betadine soaked Adaptic, 4 x 4, fluffs and Jimi wrap was applied. The patient was then awoken from his anesthetic and transferred back to the PACU having tolerated the procedure well. Plan: Deep cultures were obtained and we will await recommendations from Dr. Lilly for antibiotics. No plans for further return to the operating room unless his condition worsens or he needs a second washout. Internal medicine is been consulted for medical management. We will continue to closely monitor the patient and his response to both surgery and antibiotics.
[2017-08-27] MEDS ORDERED: VANCOMYCIN 2,000 MG in SODIUM CHLORIDE 0.9% 500 ML IVPB SCH (19:30)
[2017-08-27] MEDS: HYDROmorphone 1 MG/ML 1 ML SYRINGE IVP PRN (20:11)
[2017-08-27] MEDS: cefTRIAXone IN SWFI 2,000 MG/20 ML SYRINGE IVP SCH (20:54)
[2017-08-28] MEDS: HYDROmorphone 1 MG/ML 1 ML SYRINGE IVP PRN ×4 (00:50→10:10)
[2017-08-28] MEDS: ALBUTEROL NEBULIZED 2.5 MG/3 ML INHALATION PRN (01:10)
[2017-08-28] MEDS: VANCOMYCIN 2,000 MG in SODIUM CHLORIDE 0.9% 500 ML IVPB SCH ×2 (06:17→17:42)
[2017-08-28] MEDS: SODIUM CHLORIDE 0.9% 1,000 ML IV SCH (07:53)
[2017-08-28] MEDS: PANTOPRAZOLE 40 MG/10 ML VIAL IV SCH (08:13)
[2017-08-28] MEDS: MULTIVITAMINS, THERA 1 EACH TAB PO SCH (08:13)
[2017-08-28] MEDS: IPRATROPIUM-ALBUTEROL 3 ML NEB INHALATION PRN ×3 (08:26→15:20)
--- NOTE | 2017-08-28 08:43 | P.PN ---
Subjective Patient is feeling better this morning. The pain in his wrist is improved although it is still somewhat uncomfortable. He denies fevers or chills. He denies nausea, vomiting, or generalized malaise Objective - Vital Signs Vital signs: Vital Signs Temp 99.7 F H 08/28/17 07:00 Pulse 92 08/28/17 08:28 Resp 18 08/28/17 07:00 BP 130/75 08/28/17 07:00 Pulse Ox 92 L 08/28/17 07:00 Intake & Output 08/27/17 08/28/17 08/28/17 19:59 06:59 18:59 Intake Total Output Total Balance Weight Intake: IV Output: Urine Estimated Blood Loss Other: Voiding Method # Voids - Exam A focused examination of the patient's left upper extremity was conducted. On inspection there is a clean-appearing dressing with no saturated drainage. His fingers are diffusely swollen. He has mild discomfort with passive range of motion of the wrist, which he says is improved since before surgery. Motor and sensory function is intact in his fingers. - Labs CBC & Chem 7: 08/27/17 10:15 08/27/17 10:15 Labs: Abnormal Lab Results - Last 24 Hours (Table) 08/27/17 08/27/17 08/27/17 Range/Units 10:15 10:15 10:15 WBC 15.3 H (3.8-10.6) k/uL RBC 4.22 L (4.30-5.90) m/uL Neutrophils # 12.3 H (1.3-7.7) k/uL Sodium 135 L (137-145) mmol/L Glucose 129 H (74-99) mg/dL Alkaline Phosphatase 142 H (38-126) U/L C-Reactive Protein 169.9 H (<10.0) mg/L Microbiology - Last 24 Hours (Table) 08/27/17 18:15 Gram Stain - Preliminary Wrist - Left Tissue Culture - Preliminary 08/27/17 18:17 Gram Stain - Preliminary Wrist - Left Wound Culture - Preliminary 08/27/17 18:18 Gram Stain - Preliminary Wrist - Left Wound Culture - Preliminary 08/27/17 18:16 Gram Stain - Preliminary Wrist - Left Wound Culture - Preliminary 08/27/17 18:17 Anaerobic Culture - Preliminary Wrist - Left 08/27/17 18:15 Fungal Culture - Preliminary Wrist - Left 08/27/17 18:15 Acid Fast Bacilli Culture - Preliminary Wrist - Left 08/27/17 18:17 Fungal Culture - Preliminary Wrist - Left 08/27/17 18:15 Anaerobic Culture - Preliminary Wrist - Left 08/27/17 13:39 Gram Stain - Preliminary Aspirate 08/27/17 18:16 Fungal Culture - Preliminary Wrist - Left 08/27/17 18:16 Anaerobic Culture - Preliminary Wrist - Left 08/27/17 18:18 Fungal Culture - Preliminary Wrist - Left 08/27/17 18:18 Anaerobic Culture - Preliminary Wrist - Left Assessment and Plan (1) Wrist pain, acute Current Visit: Yes Status: Acute Code(s): M25.539 - PAIN IN UNSPECIFIED WRIST SNOMED Code(s): 42791814 Plan: Postoperative day #1 status post incision and drainage of septic left wrist. 1. IV antibiotics per infectious disease 2. Dressing changes as needed 3. 5 pound weight lifting restriction left arm 4. We will closely monitor the patient's response to IV antibiotics. If he does not improve or his condition worsens he may need a second irrigation and debridement, but at this time I'm not planning on taking him back to the operating room 5. Appreciate internal medicine assistance with perioperative medical management
[2017-08-28] MEDS: cefTRIAXone IN SWFI 2,000 MG/20 ML SYRINGE IVP SCH (10:45)
[2017-08-28] MEDS: KETOROLAC 30 MG/ML 1 ML VIAL IVP PRN ×2 (13:27→20:11)
--- NOTE | 2017-08-28 14:52 | P.PN ---
Subjective Patient was admitted for right hand swelling and patient is being treated for septic arthritis patient is on vancomycin and Rocephin as per infectious disease the cultures are still negative. Constitutional: Denied any fatigue denied any fever. Cardio vascular: denied any chest pain, palpitations Gastrointestinal denied any nausea vomiting Pulmonary: Denied any shortness of breath cough Neurologic denied any new focal deficits Objective - Vital Signs Vital signs: Vital Signs Temp 99.7 F H 08/28/17 07:00 Pulse 92 08/28/17 11:47 Resp 18 08/28/17 07:00 BP 130/75 08/28/17 07:00 Pulse Ox 92 L 08/28/17 07:00 Intake & Output 08/27/17 08/28/17 08/28/17 19:59 06:59 18:59 Intake Total Output Total Balance Weight Intake: IV Output: Urine Estimated Blood Loss Other: Voiding Method # Voids - Exam GENERAL: The patient is alert and oriented x3, not in any acute distress. Obese HEENT: Pupils are round and equally reacting to light. EOMI. No scleral icterus. No conjunctival pallor. Normocephalic, atraumatic. No pharyngeal erythema. No thyromegaly. CARDIOVASCULAR: S1 and S2 present. No murmurs, rubs, or gallops. PULMONARY: Chest is clear to auscultation, no wheezing or crackles. ABDOMEN: Soft, nontender, nondistended, normoactive bowel sounds. No palpable organomegaly. MUSCULOSKELETAL: patient is status post surgical drainage of, incision and drainage after right hand arthritis, postsurgical he packed EXTREMITIES: No cyanosis, clubbing, or pedal edema. NEUROLOGICAL: Gross neurological examination did not reveal any focal deficits. SKIN: No rashes. - Labs CBC & Chem 7: 08/27/17 10:15 08/27/17 10:15 Labs: Abnormal Lab Results - Last 24 Hours (Table) 08/28/17 Range/Units 07:19 ESR 99 H (0-15) mm/hr Microbiology - Last 24 Hours (Table) 08/27/17 18:15 Gram Stain - Preliminary Wrist - Left Tissue Culture - Preliminary 08/27/17 18:17 Gram Stain - Preliminary Wrist - Left Wound Culture - Preliminary 08/27/17 18:18 Gram Stain - Preliminary Wrist - Left Wound Culture - Preliminary 08/27/17 18:16 Gram Stain - Preliminary Wrist - Left Wound Culture - Preliminary 08/27/17 18:17 Anaerobic Culture - Preliminary Wrist - Left 08/27/17 18:15 Fungal Culture - Preliminary Wrist - Left 08/27/17 18:15 Acid Fast Bacilli Culture - Preliminary Wrist - Left 08/27/17 18:17 Fungal Culture - Preliminary Wrist - Left 08/27/17 18:15 Anaerobic Culture - Preliminary Wrist - Left 08/27/17 13:39 Gram Stain - Preliminary Aspirate 08/27/17 18:16 Fungal Culture - Preliminary Wrist - Left 08/27/17 18:16 Anaerobic Culture - Preliminary Wrist - Left 08/27/17 18:18 Fungal Culture - Preliminary Wrist - Left 08/27/17 18:18 Anaerobic Culture - Preliminary Wrist - Left Assessment and Plan Plan: #1 right breast pain and swelling: possible septic arthritis, incision and drainage ,patient is on vancomycin and Rocephin as recommended by infectious disease #2 COPD without any acute exacerbation, continue on albuterol ipratropium. #3 obesity: Counseling was provided #4 leukocytosis secondary to either septic arthritis or due to prednisone he was receiving at home
[2017-08-29] MEDS: KETOROLAC 30 MG/ML 1 ML VIAL IVP PRN ×4 (03:32→23:57)
[2017-08-29] MEDS: VANCOMYCIN 2,000 MG in SODIUM CHLORIDE 0.9% 500 ML IVPB SCH ×2 (05:22→19:41)
[2017-08-29 06:32] LABS: CH 31.6; CHCM 32.2; HCT 33.5 % (39.0-53.0); HDW 2.86; HGB 10.8 gm/dL (13.0-17.5); MCH 31.7 pg (25.0-35.0); MCHC 32.1 g/dL (31.0-37.0); MCV 98.5 fL (80.0-100.0); Mean Platelet Volume 6.9; RDW 12.7 % (11.5-15.5); WBC 16.2 k/uL (3.8-10.6)
[2017-08-29 06:42] LABS: Anion Gap 6 mmol/L; Blood Urea Nitrogen 12 mg/dL (9-20); Calcium 8.2 mg/dL (8.4-10.2); Carbon Dioxide 23 mmol/L (22-30); Chloride 105 mmol/L (98-107); Glucose 109 mg/dL (74-99); Non-African American GFR(MDRD) >60 (>60 ml/min/1.73 sqM); Potassium 4.1 mmol/L (3.5-5.1); Sodium 134 mmol/L (137-145)
[2017-08-29] MEDS: SODIUM CHLORIDE 0.9% 1,000 ML IV SCH ×3 (08:17→11:56)
[2017-08-29] MEDS: PANTOPRAZOLE 40 MG/10 ML VIAL IV SCH (08:18)
[2017-08-29] MEDS: cefTRIAXone IN SWFI 2,000 MG/20 ML SYRINGE IVP SCH (08:38)
--- NOTE | 2017-08-29 09:37 | P.PN ---
Subjective Progress Note Date: 08/29/17 Principal diagnosis: Left wrist infection Patient is 57-year-old male seen at bedside this morning. He is postop day #1 from I&D of the left wrist performed by Dr. Lowe. He has no new complaints today. He denies new numbness or tingling. He is currently denying fever, chills, chest pain or shortness of breath. Objective - Vital Signs Vital signs: Vital Signs Temp 98.1 F 08/29/17 07:00 Pulse 100 08/29/17 07:00 Resp 18 08/29/17 07:00 BP 132/77 08/29/17 07:00 Pulse Ox 95 08/29/17 07:00 Intake & Output 08/28/17 08/29/17 08/29/17 18:59 06:59 18:59 Intake Total 1100 3540 120 Balance 1100 3540 120 Weight 142.428 kg Intake: Intake, IV Titration 1100 2100 Amount Sodium Chloride 0.9% 1, 600 1600 000 ml @ 100 mls/hr IV . Q10H [facility] Rx#:[id number] Vancomycin 2,000 mg In 500 500 Sodium Chloride 0.9% 500 ml @ 167 mls/hr IVPB Q12HR@0500,1700 [facility] Rx#: [id number] Oral 1440 120 Other: Voiding Method Toilet # Voids 2 - Exam Inspection of the left upper extremity shows bulky dressing intact at the wrist. There is no evidence of saturation or active bleeding or drainage. His motor in all digits is intact. Sensation to light touch is intact in all digits. He has less than 2 second capillary refill in all digits. - Constitutional General appearance: Present: no acute distress - Psychiatric Psychiatric: Present: A&O x's 3, appropriate affect, intact judgment & insight - Labs CBC & Chem 7: 08/29/17 06:08 08/29/17 06:08 Labs: Abnormal Lab Results - Last 24 Hours (Table) 08/28/17 08/28/17 08/29/17 Range/Units 07:19 07:19 06:08 WBC 16.2 H (3.8-10.6) k/uL RBC 3.40 L (4.30-5.90) m/uL Hgb 10.8 L (13.0-17.5) gm/dL Hct 33.5 L (39.0-53.0) % ESR 99 H (0-15) mm/hr Sodium (137-145) mmol/L Glucose (74-99) mg/dL Calcium (8.4-10.2) mg/dL Prealbumin <5.0 L (18.0-42.0) mg/dL 08/29/17 Range/Units 06:08 WBC (3.8-10.6) k/uL RBC (4.30-5.90) m/uL Hgb (13.0-17.5) gm/dL Hct (39.0-53.0) % ESR (0-15) mm/hr Sodium 134 L (137-145) mmol/L Glucose 109 H (74-99) mg/dL Calcium 8.2 L (8.4-10.2) mg/dL Prealbumin (18.0-42.0) mg/dL Microbiology - Last 24 Hours (Table) 08/27/17 18:15 Acid Fast Bacilli Smear - Final Wrist - Left Acid Fast Bacilli Culture - Preliminary 08/27/17 18:18 Gram Stain - Preliminary Wrist - Left Wound Culture - Preliminary 08/27/17 18:16 Gram Stain - Preliminary Wrist - Left Wound Culture - Preliminary 08/27/17 18:17 Gram Stain - Preliminary Wrist - Left Wound Culture - Preliminary 08/27/17 18:15 Gram Stain - Preliminary Wrist - Left Tissue Culture - Preliminary 08/27/17 15:12 Blood Culture - Preliminary Blood No Growth after 24 hours Assessment and Plan (1) Septic arthritis of wrist, left Narrative/Plan: He will continue with routine postop orthopedic protocol including pain management, wound care and elevation, physical therapy, DVT prophylaxis, medical management. Infectious disease is also following in have made recommendations regarding IV antibiotics. Cultures are still pending final results and have been negative thus far. Expect discharge to home in the next 1 -2 days. Current Visit: Yes Status: Acute Priority: Medium Code(s): M00.9 - PYOGENIC ARTHRITIS, UNSPECIFIED SNOMED Code(s): 751978717 Time with Patient: Less than 30
[2017-08-29] MEDS: ALBUTEROL NEBULIZED 2.5 MG/3 ML INHALATION PRN ×3 (11:16→20:20)
[2017-08-29] MEDS: MULTIVITAMINS, THERA 1 EACH TAB PO SCH (14:01)
--- NOTE | 2017-08-29 15:17 | P.PN ---
Subjective Patient was admitted for right hand swelling and patient is being treated for septic arthritis patient is on vancomycin and Rocephin as per infectious disease the cultures are still negative. Aug 29 2017 Cultures are still pending. Patient's pain is better controlled. Constitutional: Denied any fatigue denied any fever. Cardio vascular: denied any chest pain, palpitations Gastrointestinal denied any nausea vomiting Pulmonary: Denied any shortness of breath cough Neurologic denied any new focal deficits Objective - Vital Signs Vital signs: Vital Signs Temp 98.3 F 08/29/17 14:42 Pulse 87 08/29/17 14:42 Resp 16 08/29/17 14:42 BP 147/81 08/29/17 14:42 Pulse Ox 98 08/29/17 14:42 Intake & Output 08/28/17 08/29/17 08/29/17 18:59 06:59 18:59 Intake Total 1100 3540 1540 Balance 1100 3540 1540 Weight 142.428 kg Intake: Intake, IV Titration 1100 2100 1100 Amount Sodium Chloride 0.9% 1, 600 1600 600 000 ml @ 100 mls/hr IV . Q10H [facility] Rx#:[id number] Vancomycin 2,000 mg In 500 500 500 Sodium Chloride 0.9% 500 ml @ 167 mls/hr IVPB Q12HR@0500,1700 [facility] Rx#: [id number] Oral 1440 440 Other: Voiding Method Toilet # Voids 2 1 - Exam GENERAL: The patient is alert and oriented x3, not in any acute distress. Obese HEENT: Pupils are round and equally reacting to light. EOMI. No scleral icterus. No conjunctival pallor. Normocephalic, atraumatic. No pharyngeal erythema. No thyromegaly. CARDIOVASCULAR: S1 and S2 present. No murmurs, rubs, or gallops. PULMONARY: Chest is clear to auscultation, no wheezing or crackles. ABDOMEN: Soft, nontender, nondistended, normoactive bowel sounds. No palpable organomegaly. MUSCULOSKELETAL: patient is status post surgical drainage of, incision and drainage after right hand arthritis, postsurgical he packed EXTREMITIES: No cyanosis, clubbing, or pedal edema. NEUROLOGICAL: Gross neurological examination did not reveal any focal deficits. SKIN: No rashes. - Labs CBC & Chem 7: 08/29/17 06:08 08/29/17 06:08 Labs: Abnormal Lab Results - Last 24 Hours (Table) 08/28/17 08/29/17 08/29/17 Range/Units 07:19 06:08 06:08 WBC 16.2 H (3.8-10.6) k/uL RBC 3.40 L (4.30-5.90) m/uL Hgb 10.8 L (13.0-17.5) gm/dL Hct 33.5 L (39.0-53.0) % Sodium 134 L (137-145) mmol/L Glucose 109 H (74-99) mg/dL Calcium 8.2 L (8.4-10.2) mg/dL Prealbumin <5.0 L (18.0-42.0) mg/dL Microbiology - Last 24 Hours (Table) 08/27/17 13:39 Gram Stain - Preliminary Aspirate Body Fluid Culture - Preliminary Alpha Hemolytic Streptococcus 08/27/17 18:15 Acid Fast Bacilli Smear - Final Wrist - Left Acid Fast Bacilli Culture - Preliminary 08/27/17 18:18 Gram Stain - Preliminary Wrist - Left Wound Culture - Preliminary 08/27/17 18:16 Gram Stain - Preliminary Wrist - Left Wound Culture - Preliminary 08/27/17 18:17 Gram Stain - Preliminary Wrist - Left Wound Culture - Preliminary 08/27/17 18:15 Gram Stain - Preliminary Wrist - Left Tissue Culture - Preliminary 08/27/17 15:12 Blood Culture - Preliminary Blood No Growth after 24 hours Assessment and Plan Plan: #1 right breast pain and swelling: possible septic arthritis, incision and drainage ,patient is on vancomycin and Rocephin as recommended by infectious disease #2 COPD without any acute exacerbation, continue on albuterol ipratropium. #3 obesity: Counseling was provided #4 leukocytosis secondary to either septic arthritis or due to prednisone he was receiving at home
--- NOTE | 2017-08-29 22:48 | P.PN ---
Subjective Progress Note Date: 08/29/17 Principal diagnosis: 57-year-old male presents to emergency center because of significant and worsening pain to his left wrist. The patient relates been worsening over the last 96 hours. He does not recall any specific trauma to the area. 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 He discusses using mouse, and rollerball's. He does not recall any specific trauma to the area. He has not started any new activities. Has not been utilizing hammers or power tools or shooting any weapons. He recalls no falls. He does relate that he recently was hospitalized for a short period of time because of a bout of his COPD. He had an IV that was placed in his left arm but not on his left wrist area. He was treated with antibiotic therapy oxygen and steroids. He relates no history of gout and has never had an event like this in any of his joints in the past. He started with some discomfort that became so severe that he presented to the emergency center. Is associated with fever and chill and temperature of greater than 102. He recalls no other changes in his day-to-day operation. he does a lot of his work left-handed and the current severe pain has significantly inhibited his daily activity. As noted the incision and drainages performed. He showing some improvement. Still having some pain and swelling. He has relatively desperate to get back to work. Objective - Vital Signs Vital signs: Vital Signs Temp 98.3 F 08/29/17 20:00 Pulse 88 08/29/17 20:33 Resp 18 08/29/17 20:00 BP 138/84 08/29/17 20:00 Pulse Ox 94 L 08/29/17 20:00 Intake & Output 08/29/17 08/29/17 08/30/17 06:59 18:59 06:59 Intake Total 3540 1790 1000 Balance 3540 1790 1000 Weight 142.428 kg Intake: Intake, IV Titration 2100 1100 500 Amount Sodium Chloride 0.9% 1, 1600 600 000 ml @ 100 mls/hr IV . Q10H [facility] Rx#:[id number] Vancomycin 2,000 mg In 500 500 500 Sodium Chloride 0.9% 500 ml @ 167 mls/hr IVPB Q12HR@0500,1700 [facility] Rx#: [id number] Oral 1440 690 500 Other: Voiding Method Toilet Toilet # Voids 2 1 2 - Exam 57-year-old male who suffers from obesity is uncomfortable. He has difficulty sitting upright with his left arm and unsupported position because of the severe pain. He relates the pain is actually making him feel lightheaded and nauseated. At this time the surgical team is arriving taken to the operating room for his incision and drainage. HEENT: Anicteric conjunctiva are pink and moist nasal mucosa grossly intact without significant lesions, there is no thrush. Dentition is quite warm for age Neck: The neck is supple without significant lymphadenopathy or thyromegaly. Lungs: Symmetrical air entry is noted, there are loud wheezes at the lung vaughn. Scattered crackles are heard. No distinct bronchial sounds are noted. There is no dullness or egophony. No changes of tactile fremitus. Heart: Regular rate and rhythm with an audible S1-S2, no S3 loud S4.. There is no significant murmur click or rub, PMI was nondisplaced. Abdomen: Obese, Positive bowel sounds soft and nontender without palpable masses or organomegaly. There was no guarding or rebound. Extremities: The right upper extremity has evidence of an IV site. There is no evidence of any significant swelling or difficulties with the right upper extremity. The left upper extremity shows that the significant swelling about the left wrist onto the hand. The fingers are also swollen. There is extreme pain with any attempts for range of motion of the left wrist. The site of the attempt of the aspiration the joint is noted. It is tender and not significantly bruised. There is mild erythema that surrounds this area. No other lesions are seen. There is no evidence of any ascending infection. The left elbow and left shoulder are without significant tenderness or swelling or difficulty with range of motion. The lower extremities reveal evidence ofsignificant edema. The peripheral pulses are 2+ and symmetric throughout. There is no evidence of any epitrochlear lymphadenopathy to the left arm or axillary lymphadenopathy. No other abnormal lymph nodes were seen. Neuro: Awake alert oriented to person place and time. There are no acute new gross focal sensory motor deficits. - Labs CBC & Chem 7: 08/29/17 06:08 08/29/17 06:08 Labs: Abnormal Lab Results - Last 24 Hours (Table) 08/28/17 08/29/17 08/29/17 Range/Units 07:19 06:08 06:08 WBC 16.2 H (3.8-10.6) k/uL RBC 3.40 L (4.30-5.90) m/uL Hgb 10.8 L (13.0-17.5) gm/dL Hct 33.5 L (39.0-53.0) % Sodium 134 L (137-145) mmol/L Glucose 109 H (74-99) mg/dL Calcium 8.2 L (8.4-10.2) mg/dL Prealbumin <5.0 L (18.0-42.0) mg/dL Microbiology - Last 24 Hours (Table) 08/27/17 18:17 Anaerobic Culture - Preliminary Wrist - Left 08/27/17 18:15 Anaerobic Culture - Preliminary Wrist - Left 08/27/17 18:18 Anaerobic Culture - Preliminary Wrist - Left 08/27/17 18:15 Gram Stain - Preliminary Wrist - Left Tissue Culture - Preliminary Alpha Hemolytic Streptococcus 08/27/17 18:17 Gram Stain - Preliminary Wrist - Left Wound Culture - Preliminary Alpha Hemolytic Streptococcus 08/27/17 18:16 Gram Stain - Preliminary Wrist - Left Wound Culture - Preliminary Alpha Hemolytic Streptococcus 08/27/17 18:18 Gram Stain - Preliminary Wrist - Left Wound Culture - Preliminary Alpha Hemolytic Streptococcus 08/27/17 15:12 Blood Culture - Preliminary Blood No Growth after 48 hours 08/27/17 13:39 Gram Stain - Preliminary Aspirate Body Fluid Culture - Preliminary Alpha Hemolytic Streptococcus 08/27/17 18:15 Acid Fast Bacilli Smear - Final Wrist - Left Acid Fast Bacilli Culture - Preliminary Laboratory Results WBC 16.2 k/uL (3.8-10.6) H 08/29/17 06:08 RBC 3.40 m/uL (4.30-5.90) L 08/29/17 06:08 Hgb 10.8 gm/dL (13.0-17.5) L 08/29/17 06:08 Hct 33.5 % (39.0-53.0) L 08/29/17 06:08 MCV 98.5 fL (80.0-100.0) 08/29/17 06:08 MCH 31.7 pg (25.0-35.0) 08/29/17 06:08 MCHC 32.1 g/dL (31.0-37.0) 08/29/17 06:08 RDW 12.7 % (11.5-15.5) 08/29/17 06:08 Plt Count 345 k/uL (150-450) 08/29/17 06:08 Neutrophils % 81 % 08/27/17 10:15 Lymphocytes % 10 % 08/27/17 10:15 Monocytes % 7 % 08/27/17 10:15 Eosinophils % 0 % 08/27/17 10:15 Basophils % 0 % 08/27/17 10:15 Neutrophils # 12.3 k/uL (1.3-7.7) H 08/27/17 10:15 Lymphocytes # 1.5 k/uL (1.0-4.8) 08/27/17 10:15 Monocytes # 1.0 k/uL (0-1.0) 08/27/17 10:15 Eosinophils # 0.0 k/uL (0-0.7) 08/27/17 10:15 Basophils # 0.0 k/uL (0-0.2) 08/27/17 10:15 ESR 99 mm/hr (0-15) H 08/28/17 07:19 Sodium 134 mmol/L (137-145) L 08/29/17 06:08 Potassium 4.1 mmol/L (3.5-5.1) 08/29/17 06:08 Chloride 105 mmol/L (98-107) 08/29/17 06:08 Carbon Dioxide 23 mmol/L (22-30) 08/29/17 06:08 Anion Gap 6 mmol/L 08/29/17 06:08 BUN 12 mg/dL (9-20) 08/29/17 06:08 Creatinine 0.70 mg/dL (0.66-1.25) 08/29/17 06:08 Est GFR (MDRD) Af Amer >60 (>60 ml/min/1.73 sqM) 08/29/17 06:08 Est GFR (MDRD) Non-Af >60 (>60 ml/min/1.73 sqM) 08/29/17 06:08 Glucose 109 mg/dL (74-99) H 08/29/17 06:[address] Glu mg/dL 111 08/28/17 07:19 Hemoglobin A1c 5.5 % (4.0-6.0) 08/28/17 07:19 Uric Acid 5.2 mg/dL (3.5-8.5) 08/27/17 10:15 Calcium 8.2 mg/dL (8.4-10.2) L 08/29/17 06:08 Total Bilirubin 0.6 mg/dL (0.2-1.3) 08/27/17 10:15 AST 33 U/L (17-59) 08/27/17 10:15 ALT 51 U/L (21-72) 08/27/17 10:15 Alkaline Phosphatase 142 U/L (38-126) H 08/27/17 10:15 C-Reactive Protein 169.9 mg/L (<10.0) H 08/27/17 10:15 Total Protein 7.4 g/dL (6.3-8.2) 08/27/17 10:15 Albumin 3.5 g/dL (3.5-5.0) 08/27/17 10:15 Prealbumin <5.0 mg/dL (18.0-42.0) L 08/28/17 07:19 Microbiology 08/27/17 18:17 Wrist - Left Anaerobic Culture - Preliminary 08/27/17 18:15 Wrist - Left Anaerobic Culture - Preliminary 08/27/17 18:18 Wrist - Left Anaerobic Culture - Preliminary 08/27/17 18:15 Wrist - Left Gram Stain - Preliminary 08/27/17 18:15 Wrist - Left Tissue Culture - Preliminary Alpha Hemolytic Streptococcus 08/27/17 18:17 Wrist - Left Gram Stain - Preliminary 08/27/17 18:17 Wrist - Left Wound Culture - Preliminary Alpha Hemolytic Streptococcus 08/27/17 18:16 Wrist - Left Gram Stain - Preliminary 08/27/17 18:16 Wrist - Left Wound Culture - Preliminary Alpha Hemolytic Streptococcus 08/27/17 18:18 Wrist - Left Gram Stain - Preliminary 08/27/17 18:18 Wrist - Left Wound Culture - Preliminary Alpha Hemolytic Streptococcus 08/27/17 15:12 Blood Blood Culture - Preliminary No Growth after 48 hours 08/27/17 13:39 Aspirate Gram Stain - Preliminary 08/27/17 13:39 Aspirate Body Fluid Culture - Preliminary Alpha Hemolytic Streptococcus 08/27/17 18:15 Wrist - Left Acid Fast Bacilli Smear - Final 08/27/17 18:15 Wrist - Left Acid Fast Bacilli Culture - Preliminary 08/27/17 18:15 Wrist - Left Fungal Culture - Preliminary 08/27/17 18:17 Wrist - Left Fungal Culture - Preliminary 08/27/17 18:16 Wrist - Left Fungal Culture - Preliminary 08/27/17 18:16 Wrist - Left Anaerobic Culture - Preliminary 08/27/17 18:18 Wrist - Left Fungal Culture - Preliminary Assessment and Plan (1) Septic arthritis of wrist, left Narrative/Plan: 57-year-old male presents to the emergency center with severe pain to his left wrist. He has been seen by orthopedics. He's been taking Ringworm for incision and drainage of the septic arthritis to his left wrist. The aspiration that was performed revealed evidence of a grossly purulent material. Studies are process. Further cultures and cytology will be obtained from the surgical debridement occurring at this time. The wound culture is now showed evidence of alpha hemolytic strep. Vancomycin can be discontinued and Rocephin will be continued. We'll make plans for outpatient intravenous antibiotic therapy with Rocephin and that we have a culture available. Local wound care will be described depending on the findings of the surgical process. Patient's neutropenia leukocytosis directly to the current septic arthritis The markedly elevated CRP is also directly related to the septic arthritis. The patient doesn't have an update of his tetanus vaccine. Protein levels reveal evidence of very poor pre-albumin despite his obesity, likely related to his chronic alcohol use. Importance of improved protein intake is related for healing. Multivitamin will be utilized Insurance will determine his site of care. He does have a history of being a tobacco smoker but just stopped in the last 2 weeks. Continue with respiratory treatments since he is wheezing quite a bit. Incentive spirometry will be important postoperative period. Patient is instructed on the importance of smoking cessation, smokers he'll 50% less and bony and joint infections Current Visit: Yes Status: Acute Priority: Medium Code(s): M00.9 - PYOGENIC ARTHRITIS, UNSPECIFIED SNOMED Code(s): 845208853 (2) COPD (chronic obstructive pulmonary disease) Current Visit: Yes Status: Acute Code(s): J44.9 - CHRONIC OBSTRUCTIVE PULMONARY DISEASE, UNSPECIFIED SNOMED Code(s): 58138187 (3) Leukocytosis Current Visit: Yes Status: Acute Code(s): D72.829 - ELEVATED WHITE BLOOD CELL COUNT, UNSPECIFIED SNOMED Code(s): 782330100 (4) Elevated C-reactive protein (CRP) Current Visit: Yes Status: Acute Code(s): R79.82 - ELEVATED C-REACTIVE PROTEIN (CRP) SNOMED Code(s): 090663891
[2017-08-30] MEDS: SODIUM CHLORIDE 0.9% 1,000 ML IV SCH (00:07)
[2017-08-30] MEDS ORDERED: VANCOMYCIN TROUGH DUE 1 EACH MISC MISCELLANE ONE (04:00)
[2017-08-30] MEDS: VANCOMYCIN 2,000 MG in SODIUM CHLORIDE 0.9% 500 ML IVPB SCH ×2 (04:58→16:26)
[2017-08-30] MEDS: KETOROLAC 30 MG/ML 1 ML VIAL IVP PRN ×3 (06:11→16:26)
[2017-08-30] MEDS: ALBUTEROL NEBULIZED 2.5 MG/3 ML INHALATION PRN ×2 (07:08→12:42)
[2017-08-30] MEDS: PANTOPRAZOLE 40 MG/10 ML VIAL IV SCH (08:11)
[2017-08-30] MEDS: MULTIVITAMINS, THERA 1 EACH TAB PO SCH (08:11)
[2017-08-30] MEDS: cefTRIAXone IN SWFI 2,000 MG/20 ML SYRINGE IVP SCH (09:11)
--- NOTE | 2017-08-30 10:14 | P.PN ---
Subjective Progress Note Date: 08/30/17 Principal diagnosis: Left wrist infection Patient is 57-year-old male seen at bedside this morning. He is postop day #3 from I&D of the left wrist performed by Dr. Lowe. Cultures have shown alpha hemolytic streptococcus and is being treated with IV antibiotics per infectious disease. He has no new complaints today. He denies new numbness or tingling. He is currently denying fever, chills, chest pain or shortness of breath. Objective - Vital Signs Vital signs: Vital Signs Temp 97.5 F L 08/30/17 07:19 Pulse 92 08/30/17 07:24 Resp 18 08/30/17 07:19 BP 145/83 08/30/17 07:19 Pulse Ox 99 08/30/17 07:19 Intake & Output 08/29/17 08/30/17 08/30/17 18:59 06:59 18:59 Intake Total 1790 2200 150 Balance 1790 2200 150 Intake: Intake, IV Titration 1100 1700 Amount Sodium Chloride 0.9% 1, 600 700 000 ml @ 100 mls/hr IV . Q10H [facility] Rx#:[id number] Vancomycin 2,000 mg In 500 1000 Sodium Chloride 0.9% 500 ml @ 167 mls/hr IVPB Q12HR@0500,1700 [facility] Rx#: [id number] Oral 690 500 150 Other: Voiding Method Toilet # Voids 1 2 - Exam Bulky dressing is taken down at the left wrist. Nylon sutures are in place and wound intact. There continues to be some edema and erythema about the hand and wrist. There is some mild purulent drainage from the surgical wound. Sensation to touch is intact throughout the arm, wrist and hand and digits. Capillary refill is present as well as 2+ radial pulse. 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 - Constitutional General appearance: Present: no acute distress - Psychiatric Psychiatric: Present: A&O x's 3, appropriate affect, intact judgment & insight - Labs CBC & Chem 7: 08/29/17 06:08 08/29/17 06:08 Labs: Microbiology - Last 24 Hours (Table) 08/27/17 18:17 Anaerobic Culture - Preliminary Wrist - Left 08/27/17 18:15 Anaerobic Culture - Preliminary Wrist - Left 08/27/17 18:18 Anaerobic Culture - Preliminary Wrist - Left 08/27/17 18:15 Gram Stain - Preliminary Wrist - Left Tissue Culture - Preliminary Alpha Hemolytic Streptococcus 08/27/17 18:17 Gram Stain - Preliminary Wrist - Left Wound Culture - Preliminary Alpha Hemolytic Streptococcus 08/27/17 18:16 Gram Stain - Preliminary Wrist - Left Wound Culture - Preliminary Alpha Hemolytic Streptococcus 08/27/17 18:18 Gram Stain - Preliminary Wrist - Left Wound Culture - Preliminary Alpha Hemolytic Streptococcus 08/27/17 15:12 Blood Culture - Preliminary Blood No Growth after 48 hours 08/27/17 13:39 Gram Stain - Preliminary Aspirate Body Fluid Culture - Preliminary Alpha Hemolytic Streptococcus Assessment and Plan (1) Septic arthritis of wrist, left Narrative/Plan: This patient has been reviewed with Dr. Lowe. He will be placed nothing by mouth and taken back to the OR late this afternoon/early evening for repeat irrigation and debridement of the wound. He will continue with pain management , wound care and elevation, and medical management in the interim. Dr. Lilly has recommended outpatient IV antibiotics once he is okay to be discharged. Current Visit: Yes Status: Acute Priority: Medium Code(s): M00.9 - PYOGENIC ARTHRITIS, UNSPECIFIED SNOMED Code(s): 242084503 Time with Patient: Less than 30
--- NOTE | 2017-08-30 13:46 | CDI ---
In responding to this query, please exercise your independent professional judgment. The [facility] Coding Staff and Clinical Documentation Specialists appreciate your assistance in clarifying documentation, maintaining compliance with coding guidelines, accurately documenting patients condition and capturing severity of illness. The fact that a question is asked does not imply that any particular answer is desired or expected. Communication forms are a method of clarifying documentation and are not made part of the Legal Health Record. Thank you in advance for your clarification. Last Revision, August 2015 Sherif Graff [address] [place] [address] Documentation Clarification Form Date: 08/30/2017 1:37:00 PM From: Patricia Morrison RN, CCDS Admit Date: 08/27/2017 2:01:00 PM Patient Name: Amarjit Devlin Visit Number: [id number] Dr. Pascual Izaguirre Conflicting documentation has been found in the medical record please clarify anatomical location and laterality. 08/29 Medical Progress note along with medical documentation in days Prior: " right breast pain and swelling: possible septic arthritis, incision and drainage , patient is on vancomycin and Rocephin as recommended by infectious disease." 08/30 OA Progress Notes: "Septic arthritis of wrist, left." 08/27 Procedure note: "Incision and drainage of left septic wrist Irrigation and debridement left wrist." History/Risk Factors: Chronic ETOH and tobacco abuse Clinical Indicators: See above notes Treatment: I&D and Excisional debridement of left wrist. In your opinion what is the most clinically appropriate diagnosis for this patient regarding site and laterality? OTHER explanation of clinical findings Unable to determine (no explanation for clinical findings) Please document in your progress notes and discharge summary in order to capture severity of illness and risk of mortality. Include clinical findings that support your diagnosis. FYI: Press F11 to launch patient chart. ADRYAN
[2017-08-30] MEDS ORDERED: LIDOCAINE 2% INJ 20 MG/ML (20 ML MDV) ONE (14:54)
[2017-08-30] MEDS ORDERED: LIDOCAINE 2% INJ 20 MG/ML SQ ONE (15:17)
--- NOTE | 2017-08-30 15:54 | IR ---
EXAMINATION TYPE: IR cvc insert >=5 years DATE OF EXAM: 08/30/2017 COMPARISON: NONE CLINICAL HISTORY: Infection Needs long-term intravenous access for antibiotics. PROCEDURE: After informed consent, the skin overlying the right brachial vein was localized with ultrasound and noted to be compressible and patent. An ultrasound image was obtained and submitted on the patient's chart. The overlying skin was prepped and draped and Lidocaine was used for local anesthesia. A sk in maria esther was made with a scalpel. Access was gained to the vein under ultrasound guidance with a 21 g auge needle and a 0.018 inch wire was advanced. Access site was dilated with Peel-Away sheath and ca theter tailored to the appropriate length and advanced such that the distal tip is at the cavoatrial junction. Spot image was obtained verifying placement. Catheter was fixed to the skin with suture a nd a sterile dressing was placed following hemostasis. Catheter was aspirated and flushed with salin e. Patient was discharged in stable condition without complication.Maximal barrier technique is util ized. Ultrasound image is documented on the chart. Ultrasound used with sterile technique. Fluoro time and fluoroscopic images submitted to document procedure: 125 intraoperative C-arm images, 1.1 minutes fluoroscopy time IMPRESSION: STATUS POST ULTRASOUND AND FLUOROSCOPIC GUIDED PICC LINE PLACEMENT, READY FOR USE. THIS PROCEDURE WAS PERFORMED BY THE UNDERSIGNED.
[2017-08-30] MEDS ORDERED: IV FLUID CONTINUATION 1,000 ML IV ONE ×2 (17:00)
[2017-08-30] MEDS ORDERED: ceFAZolin 3,000 MG in SODIUM CHLORIDE 0.9% IRRIGATIO 3,000 ML IRRIGATION ONE ×5 (17:27→18:18)
[2017-08-30] MEDS ORDERED: PROPOFOL 10 MG/ML 20 ML VIAL IV ONE (17:29)
[2017-08-30] MEDS ORDERED: LIDOCAINE 1% INJ 10MG/ML (20 ML MDV) ONE (17:29)
[2017-08-30] MEDS ORDERED: fentaNYL (PF) 50 MCG/ML 2 ML AMP ONE (17:29)
[2017-08-30] MEDS ORDERED: MIDAZOLAM 2 MG/2 ML VIAL ONE (17:29)
[2017-08-30] MEDS ORDERED: HYDROmorphone (PF) 1 MG/ML ONE (17:29)
--- NOTE | 2017-08-30 18:54 | P.OP ---
Date of Procedure: 08/30/17 Preoperative Diagnosis: 1. Left wrist septic arthritis 2. Morbid obesity with a BMI of 47 3. History of tobacco use 4. Alcoholic 5. COPD on chronic steroids Postoperative Diagnosis: 1. Left wrist septic arthritis 2. Left volar forearm abscess 3. History of chronic tobacco use 4. Chronic alcoholism 5. COPD Procedure(s) Performed: 1. Irrigation debridement left wrist 2. Incision and drainage of left forearm abscess 3. Application of wound VAC to left forearm and wrist Anesthesia: TAYLOR Surgeon: Joey Lowe Estimated Blood Loss (ml): 50 IV fluids (ml): 1,000 Pathology: none sent Condition: stable Disposition: PACU Indications for Procedure: The patient is a 57-year-old male with multiple medical problems including COPD , chronic tobacco use, and alcoholism who was admitted with left wrist septic arthritis this past Tuesday. He was taken to the operating room by myself Tuesday night for an incision and drainage. He was admitted and started on IV antibiotics. Initial cultures have come back as strep. He had continued pain and swelling in the left forearm with purulent drainage so we discussed taking him for repeat I&D this evening. In preoperative holding the patient had swelling, erythema, and a volar blister over the forearm. We discussed opening and washing out his wrist as well as making an incision over the volar forearm to evaluate for deep abscess. We discussed the potential risks and complication of surgery including but not limited to risk of anesthesia, risk of superficial infection, risk of deep infection, risk of delayed wound healing , risk of damage to local blood vessels or nerves, risk of the infection spreading, risk of need for further irrigation and debridements, risk of becoming septic, risk of amputation, and possibly loss of life. The patient understands the severity of his infection. He also understands the high potential for him having a complication due to his medical history of smoking and alcoholism. He provided his verbal and written consent to go forward with surgery. Operative Findings: There was a very large abscess in the volar forearm Description of Procedure: The patient was identified in preoperative holding and the correct left arm was marked with my initials. I reviewed the consent form with the patient and all of his questions were answered. The patient was then brought back to the operating room. He was positioned on the gurney and a general anesthetic was administered. His arm was positioned on an arm table. Prior to prepping the patient the sutures over the dorsal wrist incision were removed. There is a small amount of purulence from the dorsal incision. On inspection of the patient's left forearm it was tense, erythematous and there was blister formation volarly. The patient's left arm was then prepped and draped in the standard sterile fashion. A timeout was performed identifying the correct patient, operative extremity, and procedure. Attention was first directed to the dorsal wrist. I bluntly dissected down to the radiocarpal joint through the previously made incision. There is a small amount of purulence noted. 1 L of sterile saline was used to irrigate the wound. The forearm was then supinated and I marked out a volar incision over the distal third of the FCR tendon. Skin incision is made a 15 blade scalpel. Dissection was carried down carefully through the subcutaneous tissue with tenotomy scissors. The FCR sheath was incised and the FCR was retracted ulnarly. The fascia over the FPL muscle belly was incised. Immediately upon incising the fascia over the FPL there was a large alba of gross pus. At this point I elected to extend the incision both proximally and distally. I used my gloved finger to open up all potential spaces in the forearm. The infection did not appear to track into the hand. The volar forearm was then copiously irrigated using 3 L of sterile saline. After the wound had been copiously irrigated the arm looked pink and healthy. There did not appear to be any residual collections of pus. I then placed a VAC dressings over both the volar and dorsal wounds. I verified that all instrument sponge and sharp counts were correct. Both VAC dressings were hooked up to a suction canister set to 125 mm of continuous suction. The patient was awoke from his anesthetic, extubated and transferred to PACU in stable condition. Plan: The patient's infection appears to be much more severe and widespread. VAC dressings were applied in the operating room. I will see the patient tomorrow and assess his arm and decide whether or not he needs a repeat irrigation and debridement if the infection has spread or worsened. He will remain on IV antibiotics per Dr. Lilly. The patient continues to have a high risk of complication due to his multiple medical comorbidities.
[2017-08-30] MEDS: HYDROmorphone 1 MG/ML 1 ML SYRINGE IVP ONE ×4 (19:07→19:32)
--- NOTE | 2017-08-30 23:17 | P.PN ---
Subjective Progress Note Date: 08/30/17 Principal diagnosis: 57-year-old male presents to emergency center because of significant and worsening pain to his left wrist. The patient relates been worsening over the last 96 hours. He does not recall any specific trauma to the area. 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 He discusses using mouse, and rollerball's. He does not recall any specific trauma to the area. He has not started any new activities. Has not been utilizing hammers or power tools or shooting any weapons. He recalls no falls. He does relate that he recently was hospitalized for a short period of time because of a bout of his COPD. He had an IV that was placed in his left arm but not on his left wrist area. He was treated with antibiotic therapy oxygen and steroids. He relates no history of gout and has never had an event like this in any of his joints in the past. He started with some discomfort that became so severe that he presented to the emergency center. Is associated with fever and chill and temperature of greater than 102. He recalls no other changes in his day-to-day operation. he does a lot of his work left-handed and the current severe pain has significantly inhibited his daily activity. As noted the incision and drainages performed. Was having significant ongoing pain and swelling. Was seen by orthopedics. Taken back to the operating room for incision and drainage today. Case discussed with the orthopedic surgeon. Extensive tracking of infection to the volar aspect of the forearm noted He has relatively desperate to get back to work. Objective - Vital Signs Vital signs: Vital Signs Temp 97 F L 08/30/17 18:48 Pulse 84 08/30/17 19:30 Resp 16 08/30/17 19:30 BP 149/73 08/30/17 19:30 Pulse Ox 97 08/30/17 19:30 Intake & Output 08/30/17 08/30/17 08/31/17 06:59 18:59 06:59 Intake Total 2200 1052 10 Output Total 50 Balance 2200 1002 10 Intake: IV 902 10 Sodium Chloride 0.9% 1, 400 000 ml @ 100 mls/hr IV . Q10H [facility] Rx#:[id number] Intake, IV Titration 1700 Amount Sodium Chloride 0.9% 1, 700 000 ml @ 100 mls/hr IV . Q10H [facility] Rx#:[id number] Vancomycin 2,000 mg In 1000 Sodium Chloride 0.9% 500 ml @ 167 mls/hr IVPB Q12HR@0500,1700 [facility] Rx#: [id number] Oral 500 150 Output: Estimated Blood Loss 50 Other: Voiding Method Toilet # Voids 2 - Exam 57-year-old male who suffers from obesity is uncomfortable. He has difficulty sitting upright with his left arm and unsupported position because of the severe pain. He relates the pain is actually making him feel lightheaded and nauseated. At this time the surgical team is arriving taken to the operating room for his incision and drainage. HEENT: Anicteric conjunctiva are pink and moist nasal mucosa grossly intact without significant lesions, there is no thrush. Dentition is quite warm for age Neck: The neck is supple without significant lymphadenopathy or thyromegaly. Lungs: Symmetrical air entry is noted, there are loud wheezes at the lung vaughn. Scattered crackles are heard. No distinct bronchial sounds are noted. There is no dullness or egophony. No changes of tactile fremitus. Heart: Regular rate and rhythm with an audible S1-S2, no S3 loud S4.. There is no significant murmur click or rub, PMI was nondisplaced. Abdomen: Obese, Positive bowel sounds soft and nontender without palpable masses or organomegaly. There was no guarding or rebound. Extremities: The right upper extremity has evidence of an IV site. There is no evidence of any significant swelling or difficulties with the right upper extremity. The left upper extremity shows that the significant swelling about the left wrist onto the hand. The fingers are also swollen. There is extreme pain with any attempts for range of motion of the left wrist. He has noted there was a bulla that had formed on the volar aspect. Is why surgery was scheduled. The left elbow and left shoulder are without significant tenderness or swelling or difficulty with range of motion. The lower extremities reveal evidence ofsignificant edema. The peripheral pulses are 2+ and symmetric throughout. There is no evidence of any epitrochlear lymphadenopathy to the left arm or axillary lymphadenopathy. No other abnormal lymph nodes were seen. Neuro: Awake alert oriented to person place and time. There are no acute new gross focal sensory motor deficits. - Labs CBC & Chem 7: 08/29/17 06:08 08/29/17 06:08 Labs: Microbiology - Last 24 Hours (Table) 08/27/17 15:12 Blood Culture - Preliminary Blood No Growth after 72 hours 08/27/17 13:39 Gram Stain - Final Aspirate Body Fluid Culture - Final Alpha Hemolytic Streptococcus 08/27/17 18:17 Anaerobic Culture - Preliminary Wrist - Left 08/27/17 18:15 Anaerobic Culture - Preliminary Wrist - Left 08/27/17 18:18 Anaerobic Culture - Preliminary Wrist - Left 08/27/17 18:15 Gram Stain - Preliminary Wrist - Left Tissue Culture - Preliminary Alpha Hemolytic Streptococcus 08/27/17 18:17 Gram Stain - Preliminary Wrist - Left Wound Culture - Preliminary Alpha Hemolytic Streptococcus 08/27/17 18:16 Gram Stain - Preliminary Wrist - Left Wound Culture - Preliminary Alpha Hemolytic Streptococcus 08/27/17 18:18 Gram Stain - Preliminary Wrist - Left Wound Culture - Preliminary Alpha Hemolytic Streptococcus Microbiology 08/27/17 15:12 Blood Blood Culture - Preliminary No Growth after 72 hours 08/27/17 13:39 Aspirate Gram Stain - Final 08/27/17 13:39 Aspirate Body Fluid Culture - Final Alpha Hemolytic Streptococcus 08/27/17 18:17 Wrist - Left Anaerobic Culture - Preliminary 08/27/17 18:15 Wrist - Left Anaerobic Culture - Preliminary 08/27/17 18:18 Wrist - Left Anaerobic Culture - Preliminary 08/27/17 18:15 Wrist - Left Gram Stain - Preliminary 08/27/17 18:15 Wrist - Left Tissue Culture - Preliminary Alpha Hemolytic Streptococcus 08/27/17 18:17 Wrist - Left Gram Stain - Preliminary 08/27/17 18:17 Wrist - Left Wound Culture - Preliminary Alpha Hemolytic Streptococcus 08/27/17 18:16 Wrist - Left Gram Stain - Preliminary 08/27/17 18:16 Wrist - Left Wound Culture - Preliminary Alpha Hemolytic Streptococcus 08/27/17 18:18 Wrist - Left Gram Stain - Preliminary 08/27/17 18:18 Wrist - Left Wound Culture - Preliminary Alpha Hemolytic Streptococcus 08/27/17 18:15 Wrist - Left Acid Fast Bacilli Smear - Final 08/27/17 18:15 Wrist - Left Acid Fast Bacilli Culture - Preliminary 08/27/17 18:15 Wrist - Left Fungal Culture - Preliminary 08/27/17 18:17 Wrist - Left Fungal Culture - Preliminary 08/27/17 18:16 Wrist - Left Fungal Culture - Preliminary 08/27/17 18:16 Wrist - Left Anaerobic Culture - Preliminary 08/27/17 18:18 Wrist - Left Fungal Culture - Preliminary Assessment and Plan (1) Septic arthritis of wrist, left Narrative/Plan: 57-year-old male presents to the emergency center with severe pain to his left wrist. He has been seen by orthopedics. He's been taking Ringworm for incision and drainage of the septic arthritis to his left wrist. The aspiration that was performed revealed evidence of a grossly purulent material. Studies are process. Further cultures and cytology will be obtained from the surgical debridement occurring at this time. The wound culture is now showed evidence of alpha hemolytic strep. Vancomycin can be discontinued and Rocephin will be continued. We'll make plans for outpatient intravenous antibiotic therapy with Rocephin and that we have a culture available. Local wound care will be described depending on the findings of the surgical process. Patient's neutropenia leukocytosis directly to the current septic arthritis The markedly elevated CRP is also directly related to the septic arthritis. The patient doesn't have an update of his tetanus vaccine. Protein levels reveal evidence of very poor pre-albumin despite his obesity, likely related to his chronic alcohol use. Importance of improved protein intake is related for healing. Multivitamin will be utilized Insurance will determine his site of care. He does have a history of being a tobacco smoker but just stopped in the last 2 weeks. Continue with respiratory treatments since he is wheezing quite a bit. Incentive spirometry will be important postoperative period. Patient is instructed on the importance of smoking cessation, smokers he'll 50% less and bony and joint infections Case is discussed with orthopedics. On the volar aspect of the wrist the new area of infection was found. In consultation gapping room for further incision and drainage. May need further debridement tomorrow. As noted only alpha strep is been isolated. Continue aggressive antimicrobial therapy. Surgeon did not see evidence of necrotizing fasciitis. Current Visit: Yes Status: Acute Priority: Medium Code(s): M00.9 - PYOGENIC ARTHRITIS, UNSPECIFIED SNOMED Code(s): 481291312 (2) COPD (chronic obstructive pulmonary disease) Current Visit: Yes Status: Acute Code(s): J44.9 - CHRONIC OBSTRUCTIVE PULMONARY DISEASE, UNSPECIFIED SNOMED Code(s): 69881883 (3) Leukocytosis Current Visit: Yes Status: Acute Code(s): D72.829 - ELEVATED WHITE BLOOD CELL COUNT, UNSPECIFIED SNOMED Code(s): 422353094 (4) Elevated C-reactive protein (CRP) Current Visit: Yes Status: Acute Code(s): R79.82 - ELEVATED C-REACTIVE PROTEIN (CRP) SNOMED Code(s): 564112681
[2017-08-31] MEDS: SODIUM CHLORIDE 0.9% 1,000 ML IV SCH ×4 (00:32→15:00)
[2017-08-31] MEDS: HYDROmorphone 1 MG/ML 1 ML SYRINGE IVP PRN ×2 (00:35→05:20)
[2017-08-31] MEDS: VANCOMYCIN 2,000 MG in SODIUM CHLORIDE 0.9% 500 ML IVPB SCH ×2 (05:19→18:51)
--- NOTE | 2017-08-31 08:20 | P.PN ---
Subjective No acute events overnight. The patient denies fevers or chills. He continues to have some discomfort in his left arm. He states that some of his fingers have begun to feel numb. Objective - Vital Signs Vital signs: Vital Signs Temp 98.0 F 08/31/17 01:31 Pulse 84 08/31/17 01:07 Resp 16 08/30/17 20:00 BP 146/76 08/31/17 01:07 Pulse Ox 97 08/31/17 01:31 Intake & Output 08/30/17 08/31/17 08/31/17 18:59 06:59 18:59 Intake Total 1052 2277 Output Total 50 50 Balance 1002 2227 Intake: IV 902 1610 Sodium Chloride 0.9% 1, 400 1600 000 ml @ 100 mls/hr IV . Q10H [facility] Rx#:[id number] Intake, IV Titration 667 Amount Vancomycin 2,000 mg In 667 Sodium Chloride 0.9% 500 ml @ 167 mls/hr IVPB Q12HR@0500,1700 [facility] Rx#: [id number] Oral 150 Output: Drainage 50 left x2 Wrist 50 Estimated Blood Loss 50 Other: # Voids 2 - Exam The patient is in no apparent distress and is alert and able to answer questions. He is demonstrating nonlabored breathing. A focused examination of the left upper extremity was conducted. The patient has a clean appearing dressing over his hand and forearm. Wound vacs are in place with good seal. The patient's fingers are diffusely swollen, but minimally erythematous. There is mild tender diffusely throughout the palmar aspect of the hand. There is erythema over the anterior aspect of the elbow but has not extended past the thomas placed in surgery yesterday - Labs CBC & Chem 7: 08/29/17 06:08 08/29/17 06:08 Labs: Microbiology - Last 24 Hours (Table) 08/27/17 15:12 Blood Culture - Preliminary Blood No Growth after 72 hours 08/27/17 13:39 Gram Stain - Final Aspirate Body Fluid Culture - Final Alpha Hemolytic Streptococcus Assessment and Plan (1) Wrist pain, acute Current Visit: Yes Status: Acute Code(s): M25.539 - PAIN IN UNSPECIFIED WRIST SNOMED Code(s): 11396664 Plan: The patient continues to have a very serious infection his left upper extremity. He was taken back to the operating room yesterday and the volar compartment was found to have an extensive abscess which was drained. Wound vacs were placed. The patient is going to continue on antibiotics per infectious disease. I have asked my him partner to consult as a second opinion in the event that the patient needs his hand and elbow compartments opened up and drained. The patient will remain nothing by mouth with tentative plans for return to the operating room for repeat irrigation debridement, VAC dressing change, and possible hand and elbow incision and drainage this afternoon.
[2017-08-31] MEDS: MULTIVITAMINS, THERA 1 EACH TAB PO SCH (08:36)
[2017-08-31] MEDS: PANTOPRAZOLE 40 MG/10 ML VIAL IV SCH (08:36)
[2017-08-31] MEDS: cefTRIAXone IN SWFI 2,000 MG/20 ML SYRINGE IVP SCH (08:51)
[2017-08-31] MEDS: KETOROLAC 30 MG/ML 1 ML VIAL IVP PRN ×3 (09:13→21:46)
[2017-08-31] MEDS ORDERED: IV FLUID CONTINUATION 1,000 ML IV ONE (17:26)
[2017-08-31] MEDS ORDERED: fentaNYL (PF) 50 MCG/ML 2 ML AMP ONE (19:32)
[2017-08-31] MEDS ORDERED: PROPOFOL 10 MG/ML 20 ML VIAL IV ONE (19:32)
[2017-08-31] MEDS ORDERED: SUCCINYLCHOLINE CHLORIDE VIAL 200 MG/10 ML VIAL IV ONE (19:32)
[2017-08-31] MEDS ORDERED: MIDAZOLAM 2 MG/2 ML VIAL ONE (19:32)
[2017-08-31] MEDS ORDERED: ceFAZolin 3,000 MG in SODIUM CHLORIDE 0.9% IRRIGATIO 3,000 ML IRRIGATION ONE (20:06)
--- NOTE | 2017-08-31 20:35 | P.OP ---
Date of Procedure: 08/31/17 Preoperative Diagnosis: 1. left wrist septic arthritis 2. Left forearm 3. Left arm cellulitis 4. Morbid obesity with a BMI of 47 5. Chronic tobacco use 6. Chronic alcoholic Postoperative Diagnosis: same Procedure(s) Performed: 1. left open carpal tunnel release 2. Incision and drainage left arm wound 3. Irrigation and debridement of left wrist, forearm, and arm wound 4. Application of wound VAC to left wrist, forearm, and arm Anesthesia: TAYLOR Surgeon: Joey Lowe Lock Stitch Channeler #1: Horacio Richter Estimated Blood Loss (ml): 25 IV fluids (ml): 1,000 Pathology: other (cultures left arm wound) Condition: stable Disposition: PACU Indications for Procedure: the patient is a 57 old male with multiple medical problems. He is previously had irrigation and debridements of the left septic wrist and left forearm abscess. The patient had increasing numbness in his fingers over the last 24 hours. Due to the severity of the infection and increasing numbness in his fingers decision was made to take him back to the operating room tonight for repeat irrigation and debridement and carpal tunnel release. My hand partner Dr. Blake Richter agreed to assist. the patient also had erythema extending up into his arm and axilla. The decision was made to take him back to the operating room to explore his open wounds and perform an incision and drainage of the arm. We discussed potential risks and complication of surgery including risk of anesthesia, risk of superficial or deep infection, risk of infection spreading risk of damage to neurovascular structures, risks of muscle necrosis, risk of need for further surgery, risk of amputation, risk of sepsis, and possibly loss of life. We also discussed the possibility of decreased function in the left arm following surgery. The patient voiced his understanding of this. He understands that he is at a much higher risk of having a complication due to his multiple medical issues. Operative Findings: all wounds appeared clean in the forearm and wrist with minimal purulence. Exposure and decompression of the left arm showed no evidence of deep abscess. Description of Procedure: the patient was identified in preoperative holding and the correct left arm was marked. He was brought back to the operating room. A general anesthetic was administered. The VAC dressing change on his left arm was removed. On inspection of both wounds there was minimal purulence. There is erythema and warmth extending up the arm and into the axilla. The left arm was prepped and draped in the standard sterile fashion. Prior to starting surgery timeout was performed identifying the correct patient operative extremity and procedure. The volar forearm incision was extended distally across the wrist in line with the radial border of the ring finger. The transverse carpal ligament was identified and sharply released from the proximal extent of the transverse carpal ligament distally to Tobias's cardinal line. The median nerve was seen to be intact and the carpal tunnel was released in its entirety. There was no purulence within the carpal tunnel. There is minimal swelling and erythema in the hand so no further exposure was performed. A medial incision was marked out over the arm. Skin incision was made with a scalpel and dissection was carried down carefully with tenotomy scissors. The deep fascia was identified and released over the biceps. We bluntly opened all of the compartments in the arm and there was no deep purulence. A swab was taken for cultures. At this point all 3 wounds were copiously irrigated using sterile saline and cystoscopy tubing. All wounds appeared clean with no purulence. Wound vacs were applied to all 3 open wounds, and secured to a canister with no leaks. I verified that all instrument sponge and sharp counts were correct. The arm was then wrapped with web roll and an Jimi wrap. He was awoken from his anesthetic and transferred to PACU without of the procedure well.
[2017-08-31] MEDS: HYDROmorphone 1 MG/ML 1 ML SYRINGE IVP ONE ×2 (20:49→20:51)
--- NOTE | 2017-08-31 22:44 | P.PN ---
Subjective Progress Note Date: 08/31/17 Principal diagnosis: 57-year-old male presents to emergency center because of significant and worsening pain to his left wrist. The patient relates been worsening over the last 96 hours. He does not recall any specific trauma to the area. 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 He discusses using mouse, and rollerball's. He does not recall any specific trauma to the area. He has not started any new activities. Has not been utilizing hammers or power tools or shooting any weapons. He recalls no falls. He does relate that he recently was hospitalized for a short period of time because of a bout of his COPD. He had an IV that was placed in his left arm but not on his left wrist area. He was treated with antibiotic therapy oxygen and steroids. He relates no history of gout and has never had an event like this in any of his joints in the past. He started with some discomfort that became so severe that he presented to the emergency center. Is associated with fever and chill and temperature of greater than 102. He recalls no other changes in his day-to-day operation. he does a lot of his work left-handed and the current severe pain has significantly inhibited his daily activity. As noted the incision and drainages performed. Was having significant ongoing pain and swelling. Was seen by orthopedics. Taken back to the operating room for incision and drainage today. Case discussed with the orthopedic surgeon. Extensive tracking of infection to the volar aspect of the forearm noted Hand has further worsened and will go back to OR today Objective - Vital Signs Vital signs: Vital Signs Temp 98.0 F 08/31/17 20:37 Pulse 91 08/31/17 21:22 Resp 18 08/31/17 21:22 BP 163/84 08/31/17 21:22 Pulse Ox 98 08/31/17 21:22 Intake & Output 08/31/17 08/31/17 09/01/17 06:59 18:59 06:59 Intake Total 2277 700 302 Output Total 50 20 Balance 2227 700 282 Intake: IV 1610 700 302 Sodium Chloride 0.9% 1, 1600 600 000 ml @ 100 mls/hr IV . Q10H [facility] Rx#:[id number] Intake, IV Titration 667 Amount Vancomycin 2,000 mg In 667 Sodium Chloride 0.9% 500 ml @ 167 mls/hr IVPB Q12HR@0500,1700 [facility] Rx#: [id number] Output: Drainage 50 left x2 Wrist 50 Estimated Blood Loss 20 Other: # Voids 2 2 - Exam 57-year-old male who suffers from obesity is uncomfortable. He has difficulty sitting upright with his left arm and unsupported position because of the severe pain. He relates the pain is actually making him feel lightheaded and nauseated. At this time the surgical team is arriving taken to the operating room for his incision and drainage. HEENT: Anicteric conjunctiva are pink and moist nasal mucosa grossly intact without significant lesions, there is no thrush. Dentition is quite warm for age Neck: The neck is supple without significant lymphadenopathy or thyromegaly. Lungs: Symmetrical air entry is noted, there are loud wheezes at the lung vaughn. Scattered crackles are heard. No distinct bronchial sounds are noted. There is no dullness or egophony. No changes of tactile fremitus. Heart: Regular rate and rhythm with an audible S1-S2, no S3 loud S4.. There is no significant murmur click or rub, PMI was nondisplaced. Abdomen: Obese, Positive bowel sounds soft and nontender without palpable masses or organomegaly. There was no guarding or rebound. Extremities: The right upper extremity has evidence of an IV site. There is no evidence of any significant swelling or difficulties with the right upper extremity. surgery was scheduled.wound vacs are now in place The left elbow and left shoulder are without significant tenderness or swelling or difficulty with range of motion. The lower extremities reveal evidence ofsignificant edema. The peripheral pulses are 2+ and symmetric throughout. There is no evidence of any epitrochlear lymphadenopathy to the left arm or axillary lymphadenopathy. No other abnormal lymph nodes were seen. Neuro: Awake alert oriented to person place and time. There are no acute new gross focal sensory motor deficits. - Labs CBC & Chem 7: 08/29/17 06:08 08/29/17 06:08 Labs: Microbiology - Last 24 Hours (Table) 08/27/17 15:12 Blood Culture - Preliminary Blood No Growth after 96 hours Laboratory Results WBC 16.2 k/uL (3.8-10.6) H 08/29/17 06:08 RBC 3.40 m/uL (4.30-5.90) L 08/29/17 06:08 Hgb 10.8 gm/dL (13.0-17.5) L 08/29/17 06:08 Hct 33.5 % (39.0-53.0) L 08/29/17 06:08 MCV 98.5 fL (80.0-100.0) 08/29/17 06:08 MCH 31.7 pg (25.0-35.0) 08/29/17 06:08 MCHC 32.1 g/dL (31.0-37.0) 08/29/17 06:08 RDW 12.7 % (11.5-15.5) 08/29/17 06:08 Plt Count 345 k/uL (150-450) 08/29/17 06:08 Neutrophils % 81 % 08/27/17 10:15 Lymphocytes % 10 % 08/27/17 10:15 Monocytes % 7 % 08/27/17 10:15 Eosinophils % 0 % 08/27/17 10:15 Basophils % 0 % 08/27/17 10:15 Neutrophils # 12.3 k/uL (1.3-7.7) H 08/27/17 10:15 Lymphocytes # 1.5 k/uL (1.0-4.8) 08/27/17 10:15 Monocytes # 1.0 k/uL (0-1.0) 08/27/17 10:15 Eosinophils # 0.0 k/uL (0-0.7) 08/27/17 10:15 Basophils # 0.0 k/uL (0-0.2) 08/27/17 10:15 ESR 99 mm/hr (0-15) H 08/28/17 07:19 Sodium 134 mmol/L (137-145) L 08/29/17 06:08 Potassium 4.1 mmol/L (3.5-5.1) 08/29/17 06:08 Chloride 105 mmol/L (98-107) 08/29/17 06:08 Carbon Dioxide 23 mmol/L (22-30) 08/29/17 06:08 Anion Gap 6 mmol/L 08/29/17 06:08 BUN 12 mg/dL (9-20) 08/29/17 06:08 Creatinine 0.70 mg/dL (0.66-1.25) 08/29/17 06:08 Est GFR (MDRD) Af Amer >60 (>60 ml/min/1.73 sqM) 08/29/17 06:08 Est GFR (MDRD) Non-Af >60 (>60 ml/min/1.73 sqM) 08/29/17 06:08 Glucose 109 mg/dL (74-99) H 08/29/17 06:[address] Glu mg/dL 111 08/28/17 07:19 Hemoglobin A1c 5.5 % (4.0-6.0) 08/28/17 07:19 Uric Acid 5.2 mg/dL (3.5-8.5) 08/27/17 10:15 Calcium 8.2 mg/dL (8.4-10.2) L 08/29/17 06:08 Total Bilirubin 0.6 mg/dL (0.2-1.3) 08/27/17 10:15 AST 33 U/L (17-59) 08/27/17 10:15 ALT 51 U/L (21-72) 08/27/17 10:15 Alkaline Phosphatase 142 U/L (38-126) H 08/27/17 10:15 C-Reactive Protein 169.9 mg/L (<10.0) H 08/27/17 10:15 Total Protein 7.4 g/dL (6.3-8.2) 08/27/17 10:15 Albumin 3.5 g/dL (3.5-5.0) 08/27/17 10:15 Prealbumin <5.0 mg/dL (18.0-42.0) L 08/28/17 07:19 Vancomycin Trough 17.9 ug/mL 08/30/17 03:38 Viral Test 08/27/17 18:15 Microbiology 08/27/17 15:12 Blood Blood Culture - Preliminary No Growth after 96 hours 08/27/17 13:39 Aspirate Gram Stain - Final 08/27/17 13:39 Aspirate Body Fluid Culture - Final Alpha Hemolytic Streptococcus 08/27/17 18:17 Wrist - Left Anaerobic Culture - Preliminary 08/27/17 18:15 Wrist - Left Anaerobic Culture - Preliminary 08/27/17 18:18 Wrist - Left Anaerobic Culture - Preliminary 08/27/17 18:15 Wrist - Left Gram Stain - Preliminary 08/27/17 18:15 Wrist - Left Tissue Culture - Preliminary Alpha Hemolytic Streptococcus 08/27/17 18:17 Wrist - Left Gram Stain - Preliminary 08/27/17 18:17 Wrist - Left Wound Culture - Preliminary Alpha Hemolytic Streptococcus 08/27/17 18:16 Wrist - Left Gram Stain - Preliminary 08/27/17 18:16 Wrist - Left Wound Culture - Preliminary Alpha Hemolytic Streptococcus 08/27/17 18:18 Wrist - Left Gram Stain - Preliminary 08/27/17 18:18 Wrist - Left Wound Culture - Preliminary Alpha Hemolytic Streptococcus 08/27/17 18:15 Wrist - Left Acid Fast Bacilli Smear - Final 08/27/17 18:15 Wrist - Left Acid Fast Bacilli Culture - Preliminary 08/27/17 18:15 Wrist - Left Fungal Culture - Preliminary 08/27/17 18:17 Wrist - Left Fungal Culture - Preliminary 08/27/17 18:16 Wrist - Left Fungal Culture - Preliminary 08/27/17 18:16 Wrist - Left Anaerobic Culture - Preliminary 08/27/17 18:18 Wrist - Left Fungal Culture - Preliminary Assessment and Plan (1) Septic arthritis of wrist, left Narrative/Plan: 57-year-old male presents to the emergency center with severe pain to his left wrist. He has been seen by orthopedics. He's been taking Ringworm for incision and drainage of the septic arthritis to his left wrist. The aspiration that was performed revealed evidence of a grossly purulent material. Studies are process. Further cultures and cytology will be obtained from the surgical debridement occurring at this time. The wound culture is now showed evidence of alpha hemolytic strep. Vancomycin can be discontinued and Rocephin will be continued. We'll make plans for outpatient intravenous antibiotic therapy with Rocephin and that we have a culture available. Local wound care will be described depending on the findings of the surgical process. Patient's neutropenia leukocytosis directly to the current septic arthritis The markedly elevated CRP is also directly related to the septic arthritis. The patient doesn't have an update of his tetanus vaccine. Protein levels reveal evidence of very poor pre-albumin despite his obesity, likely related to his chronic alcohol use. Importance of improved protein intake is related for healing. Multivitamin will be utilized Insurance will determine his site of care. He does have a history of being a tobacco smoker but just stopped in the last 2 weeks. Continue with respiratory treatments since he is wheezing quite a bit. Incentive spirometry will be important postoperative period. Patient is instructed on the importance of smoking cessation, smokers heal 50% less and being takenwith bony and joint infections Is noted patient was taken to the operating room and extensive abscess was found and going to OR again today Current Visit: Yes Status: Acute Priority: Medium Code(s): M00.9 - PYOGENIC ARTHRITIS, UNSPECIFIED SNOMED Code(s): 077940257 (2) COPD (chronic obstructive pulmonary disease) Current Visit: Yes Status: Acute Code(s): J44.9 - CHRONIC OBSTRUCTIVE PULMONARY DISEASE, UNSPECIFIED SNOMED Code(s): 41059360 (3) Leukocytosis Current Visit: Yes Status: Acute Code(s): D72.829 - ELEVATED WHITE BLOOD CELL COUNT, UNSPECIFIED SNOMED Code(s): 754554907 (4) Elevated C-reactive protein (CRP) Current Visit: Yes Status: Acute Code(s): R79.82 - ELEVATED C-REACTIVE PROTEIN (CRP) SNOMED Code(s): 034655143
--- NOTE | 2017-08-31 23:32 | P.PN ---
Subjective Progress Note Date: 08/31/17 Principal diagnosis: Left wrist septic arthritis Patient was admitted for right hand swelling and patient is being treated for septic arthritis patient is on vancomycin and Rocephin as per infectious disease the cultures are still negative. Aug 29 2017 Cultures are still pending. Patient's pain is better controlled. 08/30/2017 Patient is on left wrist wound VAC. No fever no chills. Also is planning for OR again tomorrow. Cultures showed alpha hemolytic streptococci. Currently on vancomycin and ceftriaxone 08/31/2017 Patient denied any fever or chills. No commerce of chest pain or short of breath. Patient is being taken OR for I&D and carpal tunnel release today. Continued on ceftriaxone. ID is on board. Constitutional: Denied any fatigue denied any fever. Cardio vascular: denied any chest pain, palpitations Gastrointestinal denied any nausea vomiting Pulmonary: Denied any shortness of breath cough Neurologic denied any new focal deficits Objective - Vital Signs Vital signs: Vital Signs Temp 97.9 F 08/31/17 08:19 Pulse 83 08/31/17 08:19 Resp 18 08/31/17 08:19 BP 151/84 08/31/17 08:19 Pulse Ox 97 08/31/17 08:19 Intake & Output 08/30/17 08/31/17 08/31/17 18:59 06:59 18:59 Intake Total 1052 2277 Output Total 50 50 Balance 1002 2227 Intake: IV 902 1610 Sodium Chloride 0.9% 1, 400 1600 000 ml @ 100 mls/hr IV . Q10H [facility] Rx#:[id number] Intake, IV Titration 667 Amount Vancomycin 2,000 mg In 667 Sodium Chloride 0.9% 500 ml @ 167 mls/hr IVPB Q12HR@0500,1700 [facility] Rx#: [id number] Oral 150 Output: Drainage 50 left x2 Wrist 50 Estimated Blood Loss 50 Other: # Voids 2 1 - Exam GENERAL: The patient is alert and oriented x3, not in any acute distress. Obese HEENT: Pupils are round and equally reacting to light. EOMI. No scleral icterus. No conjunctival pallor. Normocephalic, atraumatic. No pharyngeal erythema. No thyromegaly. CARDIOVASCULAR: S1 and S2 present. No murmurs, rubs, or gallops. PULMONARY: Chest is clear to auscultation, no wheezing or crackles. ABDOMEN: Soft, nontender, nondistended, normoactive bowel sounds. No palpable organomegaly. MUSCULOSKELETAL: patient is status post surgical drainage of, incision and drainage after right hand arthritis, postsurgically packed with wound VAC EXTREMITIES: No cyanosis, clubbing, or pedal edema. NEUROLOGICAL: Gross neurological examination did not reveal any focal deficits. SKIN: No rashes. - Labs CBC & Chem 7: 08/29/17 06:08 08/29/17 06:08 Labs: Microbiology - Last 24 Hours (Table) 08/27/17 15:12 Blood Culture - Preliminary Blood No Growth after 72 hours 08/27/17 13:39 Gram Stain - Final Aspirate Body Fluid Culture - Final Alpha Hemolytic Streptococcus Assessment and Plan Assessment: #1 right wrist pain and swelling due to septic arthritis, incision and drainage. patient is on vancomycin and Rocephin as recommended by infectious disease. One culture showing all for hemolytic streptococcus. Vancomycin will be discontinued #2 COPD without any acute exacerbation, continue on albuterol ipratropium. #3 morbid obesity: Counseling was provided #4 leukocytosis secondary to either septic arthritis and due to prednisone he was receiving at home
[2017-09-01] MEDS: KETOROLAC 30 MG/ML 1 ML VIAL IVP PRN ×2 (04:31→10:47)
[2017-09-01] MEDS: SODIUM CHLORIDE 0.9% 1,000 ML IV SCH ×3 (04:32→20:43)
[2017-09-01] MEDS: VANCOMYCIN 2,000 MG in SODIUM CHLORIDE 0.9% 500 ML IVPB SCH (04:39)
[2017-09-01] MEDS: IPRATROPIUM-ALBUTEROL 3 ML NEB INHALATION PRN (08:44)
--- NOTE | 2017-09-01 09:12 | P.PN ---
Subjective Progress Note Date: 09/01/17 Principal diagnosis: status post I&D left arm This is a 57 year-old male post incision and drainage left arm, 3 wounds. The patient was evaluated at the bedside today. The patient denies nausea, vomiting , abdominal pain, shortness of breath, and chest pain this morning. He states his pain is controlled at this time. He is currently on IV antibiotics with a PICC line in place. 3 wounds vacs are present at the bedside and appear to be functioning. Objective - Vital Signs Vital signs: Vital Signs Temp 98.2 F 09/01/17 08:00 Pulse 80 09/01/17 08:44 Resp 12 09/01/17 08:00 BP 160/96 09/01/17 08:00 Pulse Ox 95 09/01/17 08:00 Intake & Output 08/31/17 09/01/17 09/01/17 18:59 06:59 18:59 Intake Total 700 1102 Output Total 20 Balance 700 1082 Intake: IV 700 1102 Sodium Chloride 0.9% 1, 600 800 000 ml @ 100 mls/hr IV . Q10H [facility] Rx#:[id number] Output: Estimated Blood Loss 20 Other: # Voids 2 2 - Exam The patient is alert and oriented 3. He is in no acute distress. Exam of the left upper extremity reveals a bulky dressing with 3 wound vacs. The patient's dressing is clean dry and intact. There is moderate swelling to the fingers. Swelling appears to be improved since yesterday. He is able to wiggle his fingers but has limited range of motion. Numbness to all fingers is still present. Circulatory status is intact. Cap refill less than 2 seconds. - Labs CBC & Chem 7: 08/29/17 06:08 08/29/17 06:08 Labs: Microbiology - Last 24 Hours (Table) 08/31/17 20:15 Gram Stain - Preliminary Arm - Left Wound Culture - Preliminary 08/31/17 20:15 Anaerobic Culture - Preliminary Arm - Left 08/27/17 15:12 Blood Culture - Preliminary Blood No Growth after 96 hours Assessment and Plan (1) Septic arthritis of wrist, left Current Visit: Yes Status: Acute Priority: Medium Code(s): M00.9 - PYOGENIC ARTHRITIS, UNSPECIFIED SNOMED Code(s): 329942706 (2) Left arm cellulitis Current Visit: Yes Status: Acute Code(s): L03.114 - CELLULITIS OF LEFT UPPER LIMB SNOMED Code(s): 820815902 Plan: The clinical and operative findings were discussed with the patient. The patient will be discharged home with IV antibiotics and wound vacs. Case management was consulted for arrangement of antibiotics and wound VAC. The patient is orthopedically stable for discharge. The patient may be discharged home later today after arrangements have been made. Continue pain control. Encouraged finger motion. Will continue to monitor closely.
[2017-09-01] MEDS: PANTOPRAZOLE 40 MG/10 ML VIAL IV SCH (09:39)
[2017-09-01] MEDS: cefTRIAXone IN SWFI 2,000 MG/20 ML SYRINGE IVP SCH (09:40)
[2017-09-01] MEDS: MULTIVITAMINS, THERA 1 EACH TAB PO SCH (14:32)
[2017-09-01] MEDS: traMADol 50 MG TAB PO PRN (14:33)
[2017-09-01] MEDS: HYDROmorphone 1 MG/ML 1 ML SYRINGE IVP PRN ×2 (16:45→22:06)
--- NOTE | 2017-09-01 23:31 | P.PN ---
Subjective Progress Note Date: 09/01/17 Principal diagnosis: 57-year-old male presents to emergency center because of significant and worsening pain to his left wrist. The patient relates been worsening over the last 96 hours. He does not recall any specific trauma to the area. 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 He discusses using mouse, and rollerball's. He does not recall any specific trauma to the area. He has not started any new activities. Has not been utilizing hammers or power tools or shooting any weapons. He recalls no falls. He does relate that he recently was hospitalized for a short period of time because of a bout of his COPD. He had an IV that was placed in his left arm but not on his left wrist area. He was treated with antibiotic therapy oxygen and steroids. He relates no history of gout and has never had an event like this in any of his joints in the past. He started with some discomfort that became so severe that he presented to the emergency center. Is associated with fever and chill and temperature of greater than 102. He recalls no other changes in his day-to-day operation. he does a lot of his work left-handed and the current severe pain has significantly inhibited his daily activity. As noted the incision and drainages performed. Was having significant ongoing pain and swelling. Was seen by orthopedics. Taken back to the operating room for incision and drainage today. Case discussed with the orthopedic surgeon. Extensive tracking of infection to the volar aspect of the forearm noted The patient was taken back to the operative room yesterday. Fortunately no further necrotic material was seen. Multiple wound vacs were applied. Feeling better today. No other new acute complaints. Objective - Vital Signs Vital signs: Vital Signs Temp 98.1 F 09/01/17 20:48 Pulse 84 09/01/17 20:48 Resp 16 09/01/17 20:48 BP 152/70 09/01/17 20:48 Pulse Ox 93 L 09/01/17 20:48 Intake & Output 09/01/17 09/01/17 09/02/17 06:59 18:59 06:59 Intake Total 1102 Output Total 20 450 Balance 1082 -450 Weight 142.428 kg Intake: IV 1102 Sodium Chloride 0.9% 1, 800 000 ml @ 100 mls/hr IV . Q10H BONIFACIO Rx#:[id number] Output: Urine 450 Estimated Blood Loss 20 Other: # Voids 2 - Exam 57-year-old male who suffers from obesity is uncomfortable. He has difficulty sitting upright with his left arm and unsupported position because of the severe pain. He relates the pain is actually making him feel lightheaded and nauseated. At this time the surgical team is arriving taken to the operating room for his incision and drainage. HEENT: Anicteric conjunctiva are pink and moist nasal mucosa grossly intact without significant lesions, there is no thrush. Dentition is quite warm for age Neck: The neck is supple without significant lymphadenopathy or thyromegaly. Lungs: Symmetrical air entry is noted, there are loud wheezes at the lung vaughn. Scattered crackles are heard. No distinct bronchial sounds are noted. There is no dullness or egophony. No changes of tactile fremitus. Heart: Regular rate and rhythm with an audible S1-S2, no S3 loud S4.. There is no significant murmur click or rub, PMI was nondisplaced. Abdomen: Obese, Positive bowel sounds soft and nontender without palpable masses or organomegaly. There was no guarding or rebound. Extremities: The right upper extremity has evidence of an IV site. There is no evidence of any significant swelling or difficulties with the right upper extremity. 3 wound vacs are noted to be in place. On the left arm. The left elbow and left shoulder are without significant tenderness or swelling or difficulty with range of motion. The lower extremities reveal evidence ofsignificant edema. The peripheral pulses are 2+ and symmetric throughout. There is no evidence of any epitrochlear lymphadenopathy to the left arm or axillary lymphadenopathy. No other abnormal lymph nodes were seen. Neuro: Awake alert oriented to person place and time. There are no acute new gross focal sensory motor deficits. - Labs CBC & Chem 7: 08/29/17 06:08 08/29/17 06:08 Labs: Microbiology - Last 24 Hours (Table) 08/27/17 18:17 Anaerobic Culture - Final Wrist - Left Anaerobic Gram Positive Cocci 08/27/17 18:15 Anaerobic Culture - Final Wrist - Left Anaerobic Gram Positive Cocci 08/27/17 18:16 Anaerobic Culture - Final Wrist - Left Anaerobic Gram Positive Cocci 08/27/17 18:18 Anaerobic Culture - Final Wrist - Left Anaerobic Gram Positive Cocci 08/27/17 18:16 Gram Stain - Final Wrist - Left Wound Culture - Final Viridans streptococcus group 08/27/17 18:15 Gram Stain - Final Wrist - Left Tissue Culture - Final Viridans streptococcus group 08/27/17 18:17 Gram Stain - Final Wrist - Left Wound Culture - Final Viridans streptococcus group 08/27/17 18:18 Gram Stain - Final Wrist - Left Wound Culture - Final Viridans streptococcus group 08/27/17 15:12 Blood Culture - Preliminary Blood No Growth after 120 hours 08/31/17 20:15 Gram Stain - Preliminary Arm - Left Wound Culture - Preliminary 08/31/17 20:15 Anaerobic Culture - Preliminary Arm - Left Laboratory Results WBC 16.2 k/uL (3.8-10.6) H 08/29/17 06:08 RBC 3.40 m/uL (4.30-5.90) L 08/29/17 06:08 Hgb 10.8 gm/dL (13.0-17.5) L 08/29/17 06:08 Hct 33.5 % (39.0-53.0) L 08/29/17 06:08 MCV 98.5 fL (80.0-100.0) 08/29/17 06:08 MCH 31.7 pg (25.0-35.0) 08/29/17 06:08 MCHC 32.1 g/dL (31.0-37.0) 08/29/17 06:08 RDW 12.7 % (11.5-15.5) 08/29/17 06:08 Plt Count 345 k/uL (150-450) 08/29/17 06:08 Neutrophils % 81 % 08/27/17 10:15 Lymphocytes % 10 % 08/27/17 10:15 Monocytes % 7 % 08/27/17 10:15 Eosinophils % 0 % 08/27/17 10:15 Basophils % 0 % 08/27/17 10:15 Neutrophils # 12.3 k/uL (1.3-7.7) H 08/27/17 10:15 Lymphocytes # 1.5 k/uL (1.0-4.8) 08/27/17 10:15 Monocytes # 1.0 k/uL (0-1.0) 08/27/17 10:15 Eosinophils # 0.0 k/uL (0-0.7) 08/27/17 10:15 Basophils # 0.0 k/uL (0-0.2) 08/27/17 10:15 ESR 99 mm/hr (0-15) H 08/28/17 07:19 Sodium 134 mmol/L (137-145) L 08/29/17 06:08 Potassium 4.1 mmol/L (3.5-5.1) 08/29/17 06:08 Chloride 105 mmol/L (98-107) 08/29/17 06:08 Carbon Dioxide 23 mmol/L (22-30) 08/29/17 06:08 Anion Gap 6 mmol/L 08/29/17 06:08 BUN 12 mg/dL (9-20) 08/29/17 06:08 Creatinine 0.70 mg/dL (0.66-1.25) 08/29/17 06:08 Est GFR (MDRD) Af Amer >60 (>60 ml/min/1.73 sqM) 08/29/17 06:08 Est GFR (MDRD) Non-Af >60 (>60 ml/min/1.73 sqM) 08/29/17 06:08 Glucose 109 mg/dL (74-99) H 08/29/17 06:[address] Glu mg/dL 111 08/28/17 07:19 Hemoglobin A1c 5.5 % (4.0-6.0) 08/28/17 07:19 Uric Acid 5.2 mg/dL (3.5-8.5) 08/27/17 10:15 Calcium 8.2 mg/dL (8.4-10.2) L 08/29/17 06:08 Total Bilirubin 0.6 mg/dL (0.2-1.3) 08/27/17 10:15 AST 33 U/L (17-59) 08/27/17 10:15 ALT 51 U/L (21-72) 08/27/17 10:15 Alkaline Phosphatase 142 U/L (38-126) H 08/27/17 10:15 C-Reactive Protein 169.9 mg/L (<10.0) H 08/27/17 10:15 Total Protein 7.4 g/dL (6.3-8.2) 08/27/17 10:15 Albumin 3.5 g/dL (3.5-5.0) 08/27/17 10:15 Prealbumin <5.0 mg/dL (18.0-42.0) L 08/28/17 07:19 Vancomycin Trough 17.9 ug/mL 08/30/17 03:38 Viral Test 08/27/17 18:15 Microbiology 08/27/17 18:17 Wrist - Left Anaerobic Culture - Final Anaerobic Gram Positive Cocci 08/27/17 18:15 Wrist - Left Anaerobic Culture - Final Anaerobic Gram Positive Cocci 08/27/17 18:16 Wrist - Left Anaerobic Culture - Final Anaerobic Gram Positive Cocci 08/27/17 18:18 Wrist - Left Anaerobic Culture - Final Anaerobic Gram Positive Cocci 08/27/17 18:16 Wrist - Left Gram Stain - Final 08/27/17 18:16 Wrist - Left Wound Culture - Final Viridans streptococcus group 08/27/17 18:15 Wrist - Left Gram Stain - Final 08/27/17 18:15 Wrist - Left Tissue Culture - Final Viridans streptococcus group 08/27/17 18:17 Wrist - Left Gram Stain - Final 08/27/17 18:17 Wrist - Left Wound Culture - Final Viridans streptococcus group 08/27/17 18:18 Wrist - Left Gram Stain - Final 08/27/17 18:18 Wrist - Left Wound Culture - Final Viridans streptococcus group 08/27/17 15:12 Blood Blood Culture - Preliminary No Growth after 120 hours 08/31/17 20:15 Arm - Left Gram Stain - Preliminary 08/31/17 20:15 Arm - Left Wound Culture - Preliminary 08/31/17 20:15 Arm - Left Anaerobic Culture - Preliminary 08/27/17 13:39 Aspirate Gram Stain - Final 08/27/17 13:39 Aspirate Body Fluid Culture - Final Alpha Hemolytic Streptococcus 08/27/17 18:15 Wrist - Left Acid Fast Bacilli Smear - Final 08/27/17 18:15 Wrist - Left Acid Fast Bacilli Culture - Preliminary 08/27/17 18:15 Wrist - Left Fungal Culture - Preliminary 08/27/17 18:17 Wrist - Left Fungal Culture - Preliminary 08/27/17 18:16 Wrist - Left Fungal Culture - Preliminary 08/27/17 18:18 Wrist - Left Fungal Culture - Preliminary Assessment and Plan (1) Septic arthritis of wrist, left Narrative/Plan: 57-year-old male presents to the emergency center with severe pain to his left wrist. He has been seen by orthopedics. He's been taking Ringworm for incision and drainage of the septic arthritis to his left wrist. The aspiration that was performed revealed evidence of a grossly purulent material. Studies are process. Further cultures and cytology will be obtained from the surgical debridement occurring at this time. The wound culture is now showed evidence of alpha hemolytic strep. Vancomycin can be discontinued and Rocephin will be continued. We'll make plans for outpatient intravenous antibiotic therapy with Rocephin and that we have a culture available. Local wound care will be described depending on the findings of the surgical process. Patient's neutropenia leukocytosis directly to the current septic arthritis The markedly elevated CRP is also directly related to the septic arthritis. The patient doesn't have an update of his tetanus vaccine. Protein levels reveal evidence of very poor pre-albumin despite his obesity, likely related to his chronic alcohol use. Importance of improved protein intake is related for healing. Multivitamin will be utilized Insurance will determine his site of care. He does have a history of being a tobacco smoker but just stopped in the last 2 weeks. Continue with respiratory treatments since he is wheezing quite a bit. Incentive spirometry will be important postoperative period. Patient is instructed on the importance of smoking cessation, smokers heal 50% less and being takenwith bony and joint infections The patient has had his final incision and drainage and debridement. Showing ongoing improvement at this time. 3 [address] are in place. We discussed with the care team that given the relatively small volume the vacs can then be combined to just 1. Orders for home care are written. Await authorization. Alginate silver AVD pads and gauze were applied to observe the drainage. The case is discussed with the wound team. There is exposed tendon. With a negative pressure therapy is reapplied needs to have Adaptic over the exposed tendon. Discussed with the patient about FMLA. Current Visit: Yes Status: Acute Priority: Medium Code(s): M00.9 - PYOGENIC ARTHRITIS, UNSPECIFIED SNOMED Code(s): 758868576 (2) COPD (chronic obstructive pulmonary disease) Current Visit: Yes Status: Acute Code(s): J44.9 - CHRONIC OBSTRUCTIVE PULMONARY DISEASE, UNSPECIFIED SNOMED Code(s): 88489194 (3) Leukocytosis Current Visit: Yes Status: Acute Code(s): D72.829 - ELEVATED WHITE BLOOD CELL COUNT, UNSPECIFIED SNOMED Code(s): 972689753 (4) Elevated C-reactive protein (CRP) Current Visit: Yes Status: Acute Code(s): R79.82 - ELEVATED C-REACTIVE PROTEIN (CRP) SNOMED Code(s): 939041948
--- NOTE | 2017-09-02 00:17 | P.PN ---
Subjective Progress Note Date: 09/01/17 Principal diagnosis: Left wrist septic arthritis Patient was admitted for right hand swelling and patient is being treated for septic arthritis patient is on vancomycin and Rocephin as per infectious disease the cultures are still negative. Aug 29 2017 Cultures are still pending. Patient's pain is better controlled. 08/30/2017 Patient is on left wrist wound VAC. No fever no chills. Also is planning for OR again tomorrow. Cultures showed alpha hemolytic streptococci. Currently on vancomycin and ceftriaxone 08/31/2017 Patient denied any fever or chills. No commerce of chest pain or short of breath. Patient is being taken OR for I&D and carpal tunnel release today. Continued on ceftriaxone. ID is on board. 09/01/2017 Patient's left hand swelling improved. No complaints of worsening pain. Patient is on 3 wound vacs. No fever no chills. No acute overnight issues. Constitutional: Denied any fatigue denied any fever. Cardio vascular: denied any chest pain, palpitations Gastrointestinal denied any nausea vomiting Pulmonary: Denied any shortness of breath cough Neurologic denied any new focal deficits Objective - Vital Signs Vital signs: Vital Signs Temp 98.2 F 09/01/17 08:00 Pulse 80 09/01/17 10:57 Resp 12 09/01/17 08:00 BP 160/96 09/01/17 08:00 Pulse Ox 95 09/01/17 08:00 Intake & Output 08/31/17 09/01/17 09/01/17 18:59 06:59 18:59 Intake Total 700 1102 Output Total 20 Balance 700 1082 Weight 142.428 kg Intake: IV 700 1102 Sodium Chloride 0.9% 1, 600 800 000 ml @ 100 mls/hr IV . Q10H BONIFACIO Rx#:[id number] Output: Estimated Blood Loss 20 Other: # Voids 2 2 - Exam GENERAL: The patient is alert and oriented x3, not in any acute distress. Obese HEENT: Pupils are round and equally reacting to light. EOMI. No scleral icterus. No conjunctival pallor. Normocephalic, atraumatic. No pharyngeal erythema. No thyromegaly. CARDIOVASCULAR: S1 and S2 present. No murmurs, rubs, or gallops. PULMONARY: Chest is clear to auscultation, no wheezing or crackles. ABDOMEN: Soft, nontender, nondistended, normoactive bowel sounds. No palpable organomegaly. MUSCULOSKELETAL: patient is status post surgical drainage of, incision and drainage after right hand arthritis, postsurgically packed with wound VAC EXTREMITIES: No cyanosis, clubbing, or pedal edema. NEUROLOGICAL: Gross neurological examination did not reveal any focal deficits. SKIN: No rashes. - Labs CBC & Chem 7: 08/29/17 06:08 08/29/17 06:08 Labs: Microbiology - Last 24 Hours (Table) 08/31/17 20:15 Gram Stain - Preliminary Arm - Left Wound Culture - Preliminary 08/31/17 20:15 Anaerobic Culture - Preliminary Arm - Left 08/27/17 15:12 Blood Culture - Preliminary Blood No Growth after 96 hours Assessment and Plan Assessment: #1 Left wrist pain and swelling due to septic arthritis, incision and drainage. Patient had incision and drainage was done on 08/31 patient is on Rocephin as recommended by infectious disease. Wound culture showing all for hemolytic streptococcus. Vancomycin will be discontinued #2 COPD without any acute exacerbation, continue on albuterol ipratropium. #3 morbid obesity: Counseling was provided #4 leukocytosis secondary to either septic arthritis and due to prednisone he was receiving at home Plan: Patient will be continued on antibiotics in the form of ceftriaxone. PICC line once cleared by ortho and possible discharge.
[2017-09-02] MEDS: HYDROmorphone 1 MG/ML 1 ML SYRINGE IVP PRN ×5 (01:11→13:25)
[2017-09-02] MEDS: SODIUM CHLORIDE 0.9% 1,000 ML IV SCH ×2 (04:15→16:17)
[2017-09-02] MEDS: PANTOPRAZOLE 40 MG TABLET PO SCH (10:01)
[2017-09-02] MEDS: cefTRIAXone IN SWFI 2,000 MG/20 ML SYRINGE IVP SCH (10:02)
[2017-09-02] MEDS: MULTIVITAMINS, THERA 1 EACH TAB PO SCH (12:51)
[2017-09-02] MEDS ORDERED: IV FLUID CONTINUATION 1,000 ML IV ONE (16:46)
[2017-09-02] MEDS ORDERED: ACETAMINOPHEN IV (For NPO) 1,000 MG in EMPTY BAG 1 BAG IVPB ONE (17:00)
--- NOTE | 2017-09-02 17:26 | P.PN ---
Progress Note - Text The patient continues to improve following multiple irrigation and debridements of a severe left upper extremity septic arthritis and deep forearm abscess. The patient had his wound vacs removed today by the wound team. He is ready to discharge. I would like to take the patient back to the operating room to washout and close his upper arm wound as there was no deep abscess. If any of the forearm wound can be closed but will be done as well. Following this the patient's arms were be placed back in a dressing and will be cleared for discharge from orthopedics.
[2017-09-02] MEDS ORDERED: LIDOCAINE 1% INJ 10MG/ML (20 ML MDV) ONE (17:32)
[2017-09-02] MEDS ORDERED: PROPOFOL 10 MG/ML 20 ML VIAL IV ONE (17:32)
[2017-09-02] MEDS ORDERED: ceFAZolin 3,000 MG in SODIUM CHLORIDE 0.9% IRRIGATIO 3,000 ML IRRIGATION ONE (18:38)
--- NOTE | 2017-09-02 18:42 | P.OP ---
Date of Procedure: 09/02/17 Preoperative Diagnosis: 1. Left wrist septic arthritis 2. Forearm abscess 3. Left upper extremity cellulitis 4. COPD 5. Chronic alcohol abuse 6. History of tobacco use 7. Obesity with BMI 47.7 Postoperative Diagnosis: Same Procedure(s) Performed: Closure of left arm wound Anesthesia: TAYLOR Surgeon: Joey Lowe Estimated Blood Loss (ml): 5 IV fluids (ml): 500 Pathology: none sent Condition: stable Disposition: PACU Indications for Procedure: He is a 57 year old male with multiple medical problems who has been admitted for a left upper extremity deep infection. As previously undergone several irrigation and debridements in the operating room. He is almost ready for discharge as he has a PICC line in place, orders for home antibiotics and outpatient management of his open wounds. The patient presents to the operating room today for closure of the left upper arm wound. I met with the patient and his preoperatively discussed the potential risks and complications of surgery. They provided their consent. Description of Procedure: The patient was identified in preoperative holding and the left arm was marked with my initials. The patient was brought back to the operating room by anesthesia. He was positioned on his hospital bed and an arm table was placed under the left arm. A preoperative timeout was performed identifying the correct patient and extremity. A general anesthetic was administered. The dressing was taken off of the left arm. The left arm was prepped and draped in the standard sterile fashion. A timeout was performed. The upper arm wound was then irrigated and debrided with 1 L of sterile saline. The wound margins appeared clean with no deep purulence or necrotic tissue. The deep subcutaneous tissue was reapproximated using 2-0 Prolene. The skin was closed using 3-0 nylon Allgower modification of the Donati stitch. The forearm wound and dorsal wrist wound were irrigated and both appeared clean with no purulence. A sterile dressing consisting of Adaptic and 4 x 4's was placed over the upper arm wound. An opticel dressing was applied over the forearm and wrist. ABDs were placed over this followed by Kerlix. The drapes were taken down and an Jimi wrap was applied over the left arm. I verified that all instrument, sponge, and sharp counts were correct. The patient was then awoken from his anesthetic and transferred to PACU in stable condition.
[2017-09-02] MEDS: ACETAMINOPHEN TAB 325 MG TAB PO PRN (20:56)
[2017-09-02] MEDS ORDERED: amLODIPine 5 MG TAB PO STA (21:39)
[2017-09-02] MEDS: traMADol 50 MG TAB PO PRN (22:19)
--- NOTE | 2017-09-02 23:22 | P.PN ---
Subjective Progress Note Date: 09/02/17 Principal diagnosis: 57-year-old male presents to emergency center because of significant and worsening pain to his left wrist. The patient relates been worsening over the last 96 hours. He does not recall any specific trauma to the area. 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 He discusses using mouse, and rollerball's. He does not recall any specific trauma to the area. He has not started any new activities. Has not been utilizing hammers or power tools or shooting any weapons. He recalls no falls. He does relate that he recently was hospitalized for a short period of time because of a bout of his COPD. He had an IV that was placed in his left arm but not on his left wrist area. He was treated with antibiotic therapy oxygen and steroids. He relates no history of gout and has never had an event like this in any of his joints in the past. He started with some discomfort that became so severe that he presented to the emergency center. Is associated with fever and chill and temperature of greater than 102. He recalls no other changes in his day-to-day operation. he does a lot of his work left-handed and the current severe pain has significantly inhibited his daily activity. As noted the incision and drainages performed. Was having significant ongoing pain and swelling. Was seen by orthopedics. Taken back to the operating room for incision and drainage today. Case discussed with the orthopedic surgeon. Extensive tracking of infection to the volar aspect of the forearm noted The patient was taken back to the operative room yesterday. Fortunately no further necrotic material was seen. Multiple wound vacs were applied. Feeling better today. No other new acute complaints. Patient was again seen by surgery. Will be taken to the operating room today for closure of the upper surgical wounds. Wound vacs to be applied only lower on the arm. Patient is miserable and he has some neck pain from how he slept. In is still very anxious about his recovery and getting back to work. Objective - Vital Signs Vital signs: Vital Signs Temp 98.4 F 09/02/17 18:34 Pulse 74 09/02/17 19:01 Resp 16 09/02/17 19:01 BP 149/64 09/02/17 19:01 Pulse Ox 100 09/02/17 19:01 Intake & Output 09/02/17 09/02/17 09/03/17 06:59 18:59 06:59 Intake Total 1600 1251 Output Total 505 500 Balance 1600 746 -500 Intake: IV 1600 1251 Sodium Chloride 0.9% 1, 1600 800 000 ml @ 100 mls/hr IV . Q10H [facility] Rx#:[id number] Output: Urine 500 500 Estimated Blood Loss 5 Other: Voiding Method Toilet # Voids 2 1 - Exam 57-year-old male who suffers from obesity is uncomfortable. He has difficulty sitting upright with his left arm and unsupported position because of the severe pain. He relates the pain is actually making him feel lightheaded and nauseated. At this time the surgical team is arriving taken to the operating room for his incision and drainage. HEENT: Anicteric conjunctiva are pink and moist nasal mucosa grossly intact without significant lesions, there is no thrush. Dentition is quite warm for age Neck: The neck is supple without significant lymphadenopathy or thyromegaly. Lungs: Symmetrical air entry is noted, there are loud wheezes at the lung vaughn. Scattered crackles are heard. No distinct bronchial sounds are noted. There is no dullness or egophony. No changes of tactile fremitus. Heart: Regular rate and rhythm with an audible S1-S2, no S3 loud S4.. There is no significant murmur click or rub, PMI was nondisplaced. Abdomen: Obese, Positive bowel sounds soft and nontender without palpable masses or organomegaly. There was no guarding or rebound. Extremities: The right upper extremity has evidence of an IV site. There is no evidence of any significant swelling or difficulties with the right upper extremity. Left arm is wrapped from the hand to the axilla. The dressings are in place. There is no excessive drainage at this point in time. The left elbow and left shoulder are without significant tenderness or swelling or difficulty with range of motion. The lower extremities reveal evidence ofsignificant edema. The peripheral pulses are 2+ and symmetric throughout. There is no evidence of any epitrochlear lymphadenopathy to the left arm or axillary lymphadenopathy. No other abnormal lymph nodes were seen. Neuro: Awake alert oriented to person place and time. There are no acute new gross focal sensory motor deficits. - Labs CBC & Chem 7: 08/29/17 06:08 08/29/17 06:08 Labs: Microbiology - Last 24 Hours (Table) 08/31/17 20:15 Gram Stain - Final Arm - Left Wound Culture - Final 08/27/17 15:12 Blood Culture - Final Blood No Growth after 144 hours 08/27/17 18:17 Anaerobic Culture - Final Wrist - Left Anaerobic Gram Positive Cocci 08/27/17 18:15 Anaerobic Culture - Final Wrist - Left Anaerobic Gram Positive Cocci 08/27/17 18:16 Anaerobic Culture - Final Wrist - Left Anaerobic Gram Positive Cocci 08/27/17 18:18 Anaerobic Culture - Final Wrist - Left Anaerobic Gram Positive Cocci 08/27/17 18:16 Gram Stain - Final Wrist - Left Wound Culture - Final Viridans streptococcus group 08/27/17 18:15 Gram Stain - Final Wrist - Left Tissue Culture - Final Viridans streptococcus group 08/27/17 18:17 Gram Stain - Final Wrist - Left Wound Culture - Final Viridans streptococcus group 08/27/17 18:18 Gram Stain - Final Wrist - Left Wound Culture - Final Viridans streptococcus group Laboratory Results WBC 16.2 k/uL (3.8-10.6) H 08/29/17 06:08 RBC 3.40 m/uL (4.30-5.90) L 08/29/17 06:08 Hgb 10.8 gm/dL (13.0-17.5) L 08/29/17 06:08 Hct 33.5 % (39.0-53.0) L 08/29/17 06:08 MCV 98.5 fL (80.0-100.0) 08/29/17 06:08 MCH 31.7 pg (25.0-35.0) 08/29/17 06:08 MCHC 32.1 g/dL (31.0-37.0) 08/29/17 06:08 RDW 12.7 % (11.5-15.5) 08/29/17 06:08 Plt Count 345 k/uL (150-450) 08/29/17 06:08 Neutrophils % 81 % 08/27/17 10:15 Lymphocytes % 10 % 08/27/17 10:15 Monocytes % 7 % 08/27/17 10:15 Eosinophils % 0 % 08/27/17 10:15 Basophils % 0 % 08/27/17 10:15 Neutrophils # 12.3 k/uL (1.3-7.7) H 08/27/17 10:15 Lymphocytes # 1.5 k/uL (1.0-4.8) 08/27/17 10:15 Monocytes # 1.0 k/uL (0-1.0) 08/27/17 10:15 Eosinophils # 0.0 k/uL (0-0.7) 08/27/17 10:15 Basophils # 0.0 k/uL (0-0.2) 08/27/17 10:15 ESR 99 mm/hr (0-15) H 08/28/17 07:19 Sodium 134 mmol/L (137-145) L 08/29/17 06:08 Potassium 4.1 mmol/L (3.5-5.1) 08/29/17 06:08 Chloride 105 mmol/L (98-107) 08/29/17 06:08 Carbon Dioxide 23 mmol/L (22-30) 08/29/17 06:08 Anion Gap 6 mmol/L 08/29/17 06:08 BUN 12 mg/dL (9-20) 08/29/17 06:08 Creatinine 0.70 mg/dL (0.66-1.25) 08/29/17 06:08 Est GFR (MDRD) Af Amer >60 (>60 ml/min/1.73 sqM) 08/29/17 06:08 Est GFR (MDRD) Non-Af >60 (>60 ml/min/1.73 sqM) 08/29/17 06:08 Glucose 109 mg/dL (74-99) H 08/29/17 06:[address] Glu mg/dL 111 08/28/17 07:19 Hemoglobin A1c 5.5 % (4.0-6.0) 08/28/17 07:19 Uric Acid 5.2 mg/dL (3.5-8.5) 08/27/17 10:15 Calcium 8.2 mg/dL (8.4-10.2) L 08/29/17 06:08 Total Bilirubin 0.6 mg/dL (0.2-1.3) 08/27/17 10:15 AST 33 U/L (17-59) 08/27/17 10:15 ALT 51 U/L (21-72) 08/27/17 10:15 Alkaline Phosphatase 142 U/L (38-126) H 08/27/17 10:15 C-Reactive Protein 169.9 mg/L (<10.0) H 08/27/17 10:15 Total Protein 7.4 g/dL (6.3-8.2) 08/27/17 10:15 Albumin 3.5 g/dL (3.5-5.0) 08/27/17 10:15 Prealbumin <5.0 mg/dL (18.0-42.0) L 08/28/17 07:19 Vancomycin Trough 17.9 ug/mL 08/30/17 03:38 Viral Test 08/27/17 18:15 Microbiology 08/31/17 20:15 Arm - Left Gram Stain - Final 08/31/17 20:15 Arm - Left Wound Culture - Final 08/27/17 15:12 Blood Blood Culture - Final No Growth after 144 hours 08/27/17 18:17 Wrist - Left Anaerobic Culture - Final Anaerobic Gram Positive Cocci 08/27/17 18:15 Wrist - Left Anaerobic Culture - Final Anaerobic Gram Positive Cocci 08/27/17 18:16 Wrist - Left Anaerobic Culture - Final Anaerobic Gram Positive Cocci 08/27/17 18:18 Wrist - Left Anaerobic Culture - Final Anaerobic Gram Positive Cocci 08/27/17 18:16 Wrist - Left Gram Stain - Final 08/27/17 18:16 Wrist - Left Wound Culture - Final Viridans streptococcus group 08/27/17 18:15 Wrist - Left Gram Stain - Final 08/27/17 18:15 Wrist - Left Tissue Culture - Final Viridans streptococcus group 08/27/17 18:17 Wrist - Left Gram Stain - Final 08/27/17 18:17 Wrist - Left Wound Culture - Final Viridans streptococcus group 08/27/17 18:18 Wrist - Left Gram Stain - Final 08/27/17 18:18 Wrist - Left Wound Culture - Final Viridans streptococcus group 08/31/17 20:15 Arm - Left Anaerobic Culture - Preliminary 08/27/17 13:39 Aspirate Gram Stain - Final 08/27/17 13:39 Aspirate Body Fluid Culture - Final Alpha Hemolytic Streptococcus 08/27/17 18:15 Wrist - Left Acid Fast Bacilli Smear - Final 08/27/17 18:15 Wrist - Left Acid Fast Bacilli Culture - Preliminary 08/27/17 18:15 Wrist - Left Fungal Culture - Preliminary 08/27/17 18:17 Wrist - Left Fungal Culture - Preliminary 08/27/17 18:16 Wrist - Left Fungal Culture - Preliminary 08/27/17 18:18 Wrist - Left Fungal Culture - Preliminary Assessment and Plan (1) Septic arthritis of wrist, left Narrative/Plan: 57-year-old male presents to the emergency center with severe pain to his left wrist. He has been seen by orthopedics. He's been taking Ringworm for incision and drainage of the septic arthritis to his left wrist. The aspiration that was performed revealed evidence of a grossly purulent material. Studies are process. Further cultures and cytology will be obtained from the surgical debridement occurring at this time. The wound culture is now showed evidence of alpha hemolytic strep. Vancomycin can be discontinued and Rocephin will be continued. We'll make plans for outpatient intravenous antibiotic therapy with Rocephin and that we have a culture available. Local wound care will be described depending on the findings of the surgical process. Patient's neutropenia leukocytosis directly to the current septic arthritis The markedly elevated CRP is also directly related to the septic arthritis. The patient doesn't have an update of his tetanus vaccine. Protein levels reveal evidence of very poor pre-albumin despite his obesity, likely related to his chronic alcohol use. Importance of improved protein intake is related for healing. Multivitamin will be utilized Insurance will determine his site of care. He does have a history of being a tobacco smoker but just stopped in the last 2 weeks. Continue with respiratory treatments since he is wheezing quite a bit. Incentive spirometry will be important postoperative period. Patient is instructed on the importance of smoking cessation, smokers heal 50% less and being takenwith bony and joint infections The patient has had his final incision and drainage and debridement. Showing ongoing improvement at this time. 3 wound vacs were utilized. We discussed with the care team that given the relatively small volume the vacs can then be combined to just 1. Orders for home care are written. Await authorization. Alginate silver ABD pads and gauze were applied to observe the drainage. The case is discussed with the wound team. The patient's went back to the operative room today to close the most proximal incision. Cleansed the others. And have the wound beds prepared for discharge and utilization of the wound VAC at home. Intravenous antibiotic therapy is ready been arranged for home. Current Visit: Yes Status: Acute Priority: Medium Code(s): M00.9 - PYOGENIC ARTHRITIS, UNSPECIFIED SNOMED Code(s): 577127618 (2) COPD (chronic obstructive pulmonary disease) Current Visit: Yes Status: Acute Code(s): J44.9 - CHRONIC OBSTRUCTIVE PULMONARY DISEASE, UNSPECIFIED SNOMED Code(s): 48654703 (3) Leukocytosis Current Visit: Yes Status: Acute Code(s): D72.829 - ELEVATED WHITE BLOOD CELL COUNT, UNSPECIFIED SNOMED Code(s): 528568371 (4) Elevated C-reactive protein (CRP) Current Visit: Yes Status: Acute Code(s): R79.82 - ELEVATED C-REACTIVE PROTEIN (CRP) SNOMED Code(s): 997121017
--- NOTE | 2017-09-02 23:45 | P.PN ---
Subjective Progress Note Date: 09/02/17 Principal diagnosis: Left wrist septic arthritis Patient was admitted for right hand swelling and patient is being treated for septic arthritis patient is on vancomycin and Rocephin as per infectious disease the cultures are still negative. Aug 29 2017 Cultures are still pending. Patient's pain is better controlled. 08/30/2017 Patient is on left wrist wound VAC. No fever no chills. Also is planning for OR again tomorrow. Cultures showed alpha hemolytic streptococci. Currently on vancomycin and ceftriaxone 08/31/2017 Patient denied any fever or chills. No commerce of chest pain or short of breath. Patient is being taken OR for I&D and carpal tunnel release today. Continued on ceftriaxone. ID is on board. 09/01/2017 Patient's left hand swelling improved. No complaints of worsening pain. Patient is on 3 wound vacs. No fever no chills. No acute overnight issues. 09/02/2017 Patient was complaining of headache. No fever no chills. No nausea vomiting or abdominal pain. Patient was again taken to or today for proximal incision closer. Wound vacs in place and IV antibiotics to be arranged at home. Constitutional: Denied any fatigue denied any fever. Cardio vascular: denied any chest pain, palpitations Gastrointestinal denied any nausea vomiting Pulmonary: Denied any shortness of breath cough Neurologic denied any new focal deficits Objective - Vital Signs Vital signs: Vital Signs Temp 98.4 F 09/02/17 18:34 Pulse 74 09/02/17 19:01 Resp 16 09/02/17 19:01 BP 149/64 09/02/17 19:01 Pulse Ox 100 09/02/17 19:01 Intake & Output 09/02/17 09/02/17 09/03/17 06:59 18:59 06:59 Intake Total 1600 1251 Output Total 505 500 Balance 1600 746 -500 Intake: IV 1600 1251 Sodium Chloride 0.9% 1, 1600 800 000 ml @ 100 mls/hr IV . Q10H [facility] Rx#:[id number] Output: Urine 500 500 Estimated Blood Loss 5 Other: Voiding Method Toilet # Voids 2 1 - Exam GENERAL: The patient is alert and oriented x3, not in any acute distress. Obese HEENT: Pupils are round and equally reacting to light. EOMI. No scleral icterus. No conjunctival pallor. Normocephalic, atraumatic. No pharyngeal erythema. No thyromegaly. CARDIOVASCULAR: S1 and S2 present. No murmurs, rubs, or gallops. PULMONARY: Chest is clear to auscultation, no wheezing or crackles. ABDOMEN: Soft, nontender, nondistended, normoactive bowel sounds. No palpable organomegaly. MUSCULOSKELETAL: patient is status post surgical drainage of, incision and drainage after right hand arthritis, postsurgically packed with wound VAC EXTREMITIES: No cyanosis, clubbing, or pedal edema. NEUROLOGICAL: Gross neurological examination did not reveal any focal deficits. SKIN: No rashes. - Labs CBC & Chem 7: 08/29/17 06:08 08/29/17 06:08 Labs: Microbiology - Last 24 Hours (Table) 08/31/17 20:15 Gram Stain - Final Arm - Left Wound Culture - Final 08/27/17 15:12 Blood Culture - Final Blood No Growth after 144 hours 08/27/17 18:17 Anaerobic Culture - Final Wrist - Left Anaerobic Gram Positive Cocci 08/27/17 18:15 Anaerobic Culture - Final Wrist - Left Anaerobic Gram Positive Cocci 08/27/17 18:16 Anaerobic Culture - Final Wrist - Left Anaerobic Gram Positive Cocci 08/27/17 18:18 Anaerobic Culture - Final Wrist - Left Anaerobic Gram Positive Cocci 08/27/17 18:16 Gram Stain - Final Wrist - Left Wound Culture - Final Viridans streptococcus group 08/27/17 18:15 Gram Stain - Final Wrist - Left Tissue Culture - Final Viridans streptococcus group 08/27/17 18:17 Gram Stain - Final Wrist - Left Wound Culture - Final Viridans streptococcus group 08/27/17 18:18 Gram Stain - Final Wrist - Left Wound Culture - Final Viridans streptococcus group Assessment and Plan Assessment: #1 Left wrist pain and swelling due to septic arthritis, incision and drainage. Patient had incision and drainage was done again on 08/31 Patient was again taken to or on 09/02 patient is on Rocephin as recommended by infectious disease. Wound culture showing all for hemolytic streptococcus. Vancomycin will be discontinued #2 COPD without any acute exacerbation, continue on albuterol ipratropium. #3 morbid obesity: Counseling was provided #4 leukocytosis secondary to either septic arthritis and due to prednisone he was receiving at home Plan: Patient will be continued on antibiotics in the form of ceftriaxone. PICC line once cleared by ortho and possible discharge.
[2017-09-03] MEDS: HYDROmorphone 1 MG/ML 1 ML SYRINGE IVP PRN (00:06)
[2017-09-03] MEDS: SODIUM CHLORIDE 0.9% 1,000 ML IV SCH ×2 (03:08→16:47)
[2017-09-03] MEDS: ACETAMINOPHEN TAB 325 MG TAB PO PRN (03:18)
[2017-09-03] MEDS: traMADol 50 MG TAB PO PRN (06:50)
[2017-09-03] MEDS: ALBUTEROL NEBULIZED 2.5 MG/3 ML INHALATION PRN ×2 (07:42→21:04)
[2017-09-03] MEDS ORDERED: HYDROcodone/APAP 10-325MG 1 EACH TAB PO PRN (09:00)
[2017-09-03] MEDS: amLODIPine 5 MG TAB PO SCH (09:45)
[2017-09-03] MEDS: PANTOPRAZOLE 40 MG TABLET PO SCH (09:45)
[2017-09-03] MEDS: cefTRIAXone IN SWFI 2,000 MG/20 ML SYRINGE IVP SCH (09:52)
--- NOTE | 2017-09-03 10:06 | P.DS ---
Providers Date of admission: 08/27/17 14:01 Expected date of discharge: 09/03/17 Attending physician: Joey Lowe Consults: 08/27/17 14:01 Consult Physician Stat Consulting Provider: Bianka Yeh Consult Reason/Comments: Medical Mgmt, R/O Septic arthritis Do you want consulting provider notified?: Yes 08/27/17 14:08 Consult Physician Stat Consulting Provider: Duncan Lilly Consult Reason/Comments: Left Wrist Swelling, R/O Septic Arthritis Do you want consulting provider notified?: Yes 08/30/17 23:43 Consult Physician Routine Consulting Provider: Horacio Richter Consult Reason/Comments: Left Hand I&D Do you want consulting provider notified?: Yes, Notify in am Primary care physician: Angus Pahm - Discharge Diagnosis(es) (1) COPD (chronic obstructive pulmonary disease) Current Visit: Yes Status: Acute (2) Left arm cellulitis Current Visit: Yes Status: Acute (3) Left wrist pain Current Visit: Yes Status: Acute (4) Leukocytosis Current Visit: Yes Status: Acute (5) Septic arthritis of wrist, left Current Visit: Yes Status: Acute Priority: Medium Hospital Course: This is a 57-year-old male admitted to [facility] on 2016 with septic arthritis to the left wrist. He had 4 separate surgical interventions throughout his stay for irrigation and debridement as well as wound VAC placement. His most recent surgery on 09/02/2017 was performed to secondarily close the wounds. The distal forearm wounds remain open. Wound vacs were removed. Cultures from the wounds reveal strep viridans. The patient does have a PICC line for home IV antibiotics. He remains in his long-arm splint. The patient is discharged to home with home care. He is to continue IV antibiotics as per infectious disease recommendations. Patient Condition at Discharge: Stable Plan - Discharge Summary Discharge Rx Participant: Yes New Discharge Prescriptions: New cefTRIAXone SODIUM [Ceftriaxone] 2 gm IV DAILY 30 Days #30 vial.[facility] Sennosides-Docusate Sodium [Senokot-S] 2 tab PO DAILY #30 tablet HYDROcodone/APAP 7.5-325MG [Tyler 7.5-325] 1 - 2 tab PO Q4-6H PRN #90 tab PRN Reason: Pain No Action Albuterol Inhaler [Ventolin Hfa Inhaler] 1 puff INHALATION RT-Q4H PRN PRN Reason: Dyspnea predniSONE 50 mg PO DAILY Colchicine [Colcrys] 0.6 mg PO DAILY Ipratropium-Albuterol Nebulize [Duoneb 0.5 mg-3 mg/3 ml Soln] 3 ml INHALATION RT-QID PRN PRN Reason: sob Discharge Medication List Albuterol Inhaler [Ventolin Hfa Inhaler] 1 puff INHALATION RT-Q4H PRN 07/25/17 [ History] Colchicine [Colcrys] 0.6 mg PO DAILY 08/27/17 [History] Ipratropium-Albuterol Nebulize [Duoneb 0.5 mg-3 mg/3 ml Soln] 3 ml INHALATION RT -QID PRN 08/27/17 [History] predniSONE 50 mg PO DAILY 08/27/17 [History] cefTRIAXone SODIUM [Ceftriaxone] 2 gm IV DAILY 30 Days #30 vial.[place] 08/29/17 [ Rx] Sennosides-Docusate Sodium [Senokot-S] 2 tab PO DAILY #30 tablet 09/01/17 [Rx] HYDROcodone/APAP 7.5-325MG [Tyler 7.5-325] 1 - 2 tab PO Q4-6H PRN #90 tab [Rx] Follow up Appointment(s)/Referral(s): Duncan Lilly MD [STAFF PHYSICIAN] - 1 Week (at the wound center) Angus Pham MD [Primary Care Provider] - 09/05/17 1:40 pm [facility], [NON-STAFF] - Joey Lowe MD [Medical Doctor] - 09/08/17 1:00 pm Ambulatory/Diagnostic Orders: Basic Metabolic Panel [LAB.AMB] Location: Determined By Patient Complete Blood Count w/diff [LAB.AMB] Location: Determined By Patient Miscellaneous Lab Order [LAB.AMB] Location: Determined By Patient Activity/Diet/Wound Care/Special Instructions: Wound Vac and IV antibiotics per infectious disease Cover Tendon in two open wound left arm wound with adaptic before applying the Wound Vac Foam per Dr Lilly Wound vac has been removed. Continue local wound care. Continue finger motion. Discharge Disposition: HOME WITH HOME HEALTH SERVICES
[2017-09-03] MEDS: MULTIVITAMINS, THERA 1 EACH TAB PO SCH (14:50)
[2017-09-03] MEDS: HYDROcodone/APAP 10-325MG 1 EACH TAB PO PRN ×2 (16:32→22:51)
[2017-09-03] MEDS ORDERED: cloNIDine HCL 0.1 MG TAB PO STA (17:49)
--- NOTE | 2017-09-03 23:09 | P.PN ---
Subjective Progress Note Date: 09/03/17 Principal diagnosis: Left wrist septic arthritis Patient was admitted for right hand swelling and patient is being treated for septic arthritis patient is on vancomycin and Rocephin as per infectious disease the cultures are still negative. Aug 29 2017 Cultures are still pending. Patient's pain is better controlled. 08/30/2017 Patient is on left wrist wound VAC. No fever no chills. Also is planning for OR again tomorrow. Cultures showed alpha hemolytic streptococci. Currently on vancomycin and ceftriaxone 08/31/2017 Patient denied any fever or chills. No commerce of chest pain or short of breath. Patient is being taken OR for I&D and carpal tunnel release today. Continued on ceftriaxone. ID is on board. 09/01/2017 Patient's left hand swelling improved. No complaints of worsening pain. Patient is on 3 wound vacs. No fever no chills. No acute overnight issues. 09/02/2017 Patient was complaining of headache. No fever no chills. No nausea vomiting or abdominal pain. Patient was again taken to or today for proximal incision closer. Wound vacs in place and IV antibiotics to be arranged at home. 09/03/2017 Patient was taken to operating room yesterday and proximal incision was closed. Wound VAC was removed at the time. Currently continued on IV antibiotics and awaiting final ID recommendations regarding wound VAC and course of antibiotics. Otherwise patient denied any worsening pain. Constitutional: Denied any fatigue denied any fever. Cardio vascular: denied any chest pain, palpitations Gastrointestinal denied any nausea vomiting Pulmonary: Denied any shortness of breath cough Neurologic denied any new focal deficits Objective - Vital Signs Vital signs: Vital Signs Temp 97.6 F 09/03/17 16:33 Pulse 76 09/03/17 21:04 Resp 16 09/03/17 16:33 BP 166/86 09/03/17 16:33 Pulse Ox 91 L 09/03/17 16:33 Intake & Output 09/03/17 09/03/17 09/04/17 06:59 18:59 06:59 Intake Total 950 477 Output Total 500 500 Balance 450 -23 Intake: IV 450 Sodium Chloride 0.9% 1, 450 000 ml @ 50 mls/hr IV . Q20H [facility] Rx#:[id number] Oral 250 477 Blood Product 250 Output: Urine 500 500 Other: # Voids 1 2 - Exam GENERAL: The patient is alert and oriented x3, not in any acute distress. Obese HEENT: Pupils are round and equally reacting to light. EOMI. No scleral icterus. No conjunctival pallor. Normocephalic, atraumatic. No pharyngeal erythema. No thyromegaly. CARDIOVASCULAR: S1 and S2 present. No murmurs, rubs, or gallops. PULMONARY: Chest is clear to auscultation, no wheezing or crackles. ABDOMEN: Soft, nontender, nondistended, normoactive bowel sounds. No palpable organomegaly. MUSCULOSKELETAL: patient is status post surgical drainage of, incision and drainage after right hand arthritis, postsurgically packed . EXTREMITIES: No cyanosis, clubbing, or pedal edema. NEUROLOGICAL: Gross neurological examination did not reveal any focal deficits. SKIN: No rashes. - Labs CBC & Chem 7: 08/29/17 06:08 08/29/17 06:08 Labs: Microbiology - Last 24 Hours (Table) 08/31/17 20:15 Anaerobic Culture - Preliminary Arm - Left 08/31/17 20:15 Gram Stain - Final Arm - Left Wound Culture - Final 08/27/17 15:12 Blood Culture - Final Blood No Growth after 144 hours Assessment and Plan Assessment: #1 Left wrist pain and swelling due to septic arthritis, incision and drainage. Patient had incision and drainage was done again on 08/31 Patient was again taken to or on 09/02. Wound VAC was removed. patient is on Rocephin as recommended by infectious disease. Wound culture showing all for hemolytic streptococcus. Vancomycin was discontinued #2 COPD without any acute exacerbation, continue on albuterol ipratropium. #3 morbid obesity: Counseling was provided #4 leukocytosis secondary to either septic arthritis and due to prednisone he was receiving at home Plan: Patient will be continued on antibiotics in the form of ceftriaxone. PICC line once cleared by ortho and ID recommendations regarding antibiotic course
[2017-09-04 02:39] VITALS: RESP 16
[2017-09-04] MEDS: HYDROcodone/APAP 10-325MG 1 EACH TAB PO PRN ×3 (03:51→15:10)
[2017-09-04 07:17] VITALS: BP 173/77; TEMP 97.6
[2017-09-04] MEDS: ALBUTEROL NEBULIZED 2.5 MG/3 ML INHALATION PRN (08:31)
[2017-09-04] MEDS: PANTOPRAZOLE 40 MG TABLET PO SCH (08:34)
[2017-09-04] MEDS: traMADol 50 MG TAB PO PRN (08:36)
[2017-09-04] MEDS: amLODIPine 5 MG TAB PO SCH (08:37)
[2017-09-04 08:42] VITALS: PULSE 72
[2017-09-04] MEDS: cefTRIAXone IN SWFI 2,000 MG/20 ML SYRINGE IVP SCH (09:14)
[2017-09-04] MEDS ORDERED: MAGNESIUM HYDROXIDE 2,400 MG/10 ML CUP PO PRN (09:29)
--- NOTE | 2017-09-04 10:02 | P.PN ---
Progress Note - Text Progress Note Date: 09/04/17 This is an addendum to the discharge summary. I spoke with Dr. Lilly this morning for clarification regarding wound VAC. The patient will be discharged to home with the Opticel dressing then we will have home care apply the wound VAC to the forearm. Patient is discharged to home on 09/04/2017.
[2017-09-04] MEDS: MULTIVITAMINS, THERA 1 EACH TAB PO SCH (13:18)
--- NOTE | 2017-09-04 19:17 | P.PN ---
Subjective Progress Note Date: 09/04/17 Principal diagnosis: Left wrist septic arthritis Patient was admitted for right hand swelling and patient is being treated for septic arthritis patient is on vancomycin and Rocephin as per infectious disease the cultures are still negative. Aug 29 2017 Cultures are still pending. Patient's pain is better controlled. 08/30/2017 Patient is on left wrist wound VAC. No fever no chills. Also is planning for OR again tomorrow. Cultures showed alpha hemolytic streptococci. Currently on vancomycin and ceftriaxone 08/31/2017 Patient denied any fever or chills. No commerce of chest pain or short of breath. Patient is being taken OR for I&D and carpal tunnel release today. Continued on ceftriaxone. ID is on board. 09/01/2017 Patient's left hand swelling improved. No complaints of worsening pain. Patient is on 3 wound vacs. No fever no chills. No acute overnight issues. 09/02/2017 Patient was complaining of headache. No fever no chills. No nausea vomiting or abdominal pain. Patient was again taken to or today for proximal incision closer. Wound vacs in place and IV antibiotics to be arranged at home. 09/03/2017 Patient was taken to operating room yesterday and proximal incision was closed. Wound VAC was removed at the time. Currently continued on IV antibiotics and awaiting final ID recommendations regarding wound VAC and course of antibiotics. Otherwise patient denied any worsening pain. 09/04/2017 Patient's left hand swelling improved and pain improved as well. Patient is being discharged home with IV antibiotics in the form of ceftriaxone. Blood pressure medications in the form of hydrochlorothiazide/lisinopril combination was ordered. Patient was advised to follow with primary care physician in 3- 5 days. Constitutional: Denied any fatigue denied any fever. Cardio vascular: denied any chest pain, palpitations Gastrointestinal denied any nausea vomiting Pulmonary: Denied any shortness of breath cough Neurologic denied any new focal deficits Objective - Vital Signs Vital signs: Vital Signs Temp 97.6 F 09/04/17 07:00 Pulse 72 09/04/17 08:42 Resp 16 09/04/17 07:00 BP 173/77 09/04/17 07:00 Pulse Ox 93 L 09/04/17 07:00 Intake & Output 09/03/17 09/04/17 09/04/17 18:59 06:59 18:59 Intake Total 477 800 240 Output Total 500 Balance -23 800 240 Intake: IV 400 Sodium Chloride 0.9% 1, 400 000 ml @ 50 mls/hr IV . Q20H [facility] Rx#:[id number] Intake, IV Titration 400 Amount Sodium Chloride 0.9% 1, 400 000 ml @ 50 mls/hr IV . Q20H [facility] Rx#:[id number] Oral 477 240 Output: Urine 500 Other: # Voids 2 1 - Exam GENERAL: The patient is alert and oriented x3, not in any acute distress. Obese HEENT: Pupils are round and equally reacting to light. EOMI. No scleral icterus. No conjunctival pallor. Normocephalic, atraumatic. No pharyngeal erythema. No thyromegaly. CARDIOVASCULAR: S1 and S2 present. No murmurs, rubs, or gallops. PULMONARY: Chest is clear to auscultation, no wheezing or crackles. ABDOMEN: Soft, nontender, nondistended, normoactive bowel sounds. No palpable organomegaly. MUSCULOSKELETAL: patient is status post surgical drainage of, incision and drainage after right hand arthritis, postsurgically packed . EXTREMITIES: No cyanosis, clubbing, or pedal edema. NEUROLOGICAL: Gross neurological examination did not reveal any focal deficits. SKIN: No rashes. - Labs CBC & Chem 7: 08/29/17 06:08 08/29/17 06:08 Assessment and Plan Assessment: #1 Left wrist pain and swelling due to septic arthritis, incision and drainage. Patient had incision and drainage was done again on 08/31 Patient was again taken to or on 09/02. Wound VAC was removed. patient is on Rocephin as recommended by infectious disease. Wound culture showing all for hemolytic streptococcus. Vancomycin was discontinued #2 COPD without any acute exacerbation, continue on albuterol ipratropium. #3 morbid obesity: Counseling was provided #4 leukocytosis secondary to either septic arthritis and due to prednisone he was receiving at home #5 hypertension. New Diagnoses. Patient was started on hydrochlorothiazide / lisinopril. Follow with PCP Plan: Patient will be continued on antibiotics in the form of ceftriaxone. Patient is being discharged home today. Patient was advised to follow with primary physician in 3-5 days. Time with Patient: Greater than 30
== END 2017-09-04 16:00 | disposition home health service (06) | DRG 501 ==
LOC: EC 09:19 → 3SUR 14:01
PROVIDERS: ADMIT Orthopaedic Surgery; ATTEND Orthopaedic Surgery
PROC: 0RBP0ZZ Excision of Left Wrist Joint, Open Approach (ICD-10-PCS; principal; 2017-08-27 14:30)
PROC: 0R9P0ZZ Drainage of Left Wrist Joint, Open Approach (ICD-10-PCS; principal; 2017-08-27 14:30)
PROC: 02HV33Z Insertion of Infusion Device into Superior Vena Cava, Percutaneous Approach (ICD-10-PCS; 2017-08-30)
PROC: 0J9H0ZZ Drainage of Left Lower Arm Subcutaneous Tissue and Fascia, Open Approach (ICD-10-PCS; 2017-08-30 14:58)
PROC: 01N50ZZ Release Median Nerve, Open Approach (ICD-10-PCS; 2017-08-31)
PROC: 0J9H0ZZ Drainage of Left Lower Arm Subcutaneous Tissue and Fascia, Open Approach (ICD-10-PCS; 2017-08-31)
PROC: 0JDH0ZZ Extraction of Left Lower Arm Subcutaneous Tissue and Fascia, Open Approach (ICD-10-PCS; 2017-09-02)
DX: M00.232 Other streptococcal arthritis, left wrist (principal); Z68.42 Body mass index [BMI] 45.0-49.9, adult; I10 Essential (primary) hypertension; L02.414 Cutaneous abscess of left upper limb; L03.114 Cellulitis of left upper limb; E66.01 Morbid (severe) obesity due to excess calories; F10.20 Alcohol dependence, uncomplicated; F17.200 Nicotine dependence, unspecified, uncomplicated; K21.9 Gastro-esophageal reflux disease without esophagitis; M10.9 Gout, unspecified; M19.032 Primary osteoarthritis, left wrist; Z79.52 Long term (current) use of systemic steroids; Z80.8 Family history of malignant neoplasm of other organs or systems; J44.9 Chronic obstructive pulmonary disease, unspecified
CPT/HCPCS: 36415; 36569; 76937; 77001; 80048; 80053; 80202; 83036; 84134; 84550; 85025; 85027; 85652; 86140; 87040; 87070; 87075; 87077; 87102; 87116; 87186; 87205; 87206; 87252; 87498; 87529; 87798; 90715; 94640; 94760; 96360; 96361; 96374; 96375; 99285